=== PATIENT | female | born 1950 | race Hispanic/Latino ===

== ENCOUNTER 2016-10-28 14:33 | Emergency (ER) | payer MEDICARE, MEDICAID ==
[2016-10-28 14:33] VITALS: BMI 30.7
[2016-10-28 15:52] VITALS: BP 179/71; PULSE 91; RESP 18; TEMP 97.9; O2SAT 100
--- NOTE | 2016-10-28 16:13 | C.PDOC ---
History Of Present Illness 66 y/o female is brought to the ED by daughter for evaluation of bleeding from catheter site after a full dialysis treatment today. Patient reports that the bleeding soaked through one bandage, then the nurse placed another bandage which is the one on presently. She denies any history of bleeding problems, hematochezia, or hematuria. No easy bruising or bleeding otherwise. She reports that the catheter was placed on 09/17/16 and she has been receiving dialysis treatments since then. Also notes fistula done in August,, not yet ready for use. Time Seen by Provider: 10/28/16 15:58 Chief Complaint (Nursing): Abnormal Skin Integrity History Per: Patient, Family (daughter) History/Exam Limitations: no limitations Onset/Duration Of Symptoms: Mins, Persistent Current Symptoms Are (Timing): Still Present Recent travel outside of the [place]: No Past Medical History Reviewed: Historical Data, Nursing Documentation, Vital Signs Vital Signs: Last Vital Signs Temp 97.9 F 10/28/16 15:48 Pulse 91 H 10/28/16 15:48 Resp 18 10/28/16 15:48 BP 179/71 H 10/28/16 15:48 Pulse Ox 100 10/28/16 18:16 - Medical History PMH: Anemia, Anxiety, Back Problems, CHF, Diabetes, Gall Bladder Disease, HTN, Hypercholesterolemia, Hypothyroidism, Peripheral Edema, Pneumonia, End Stage Renal Disease, Chronic Kidney Disease, Sleep Apnea, TIA (right sided weakness) Surgical History: Cholecystectomy, Endoscopy, Tonsillectomy - [facility] Procedures ASSISTANCE WITH RESPIRATORY VENTILATION, <24 HRS, CPAP (04/29/16) COLONOSCOPY (02/01/15) EXCISION OF LARGE INTESTINE, ENDO, DIAGN (04/29/16) FLUOROSCOPY OF SUPERIOR VENA CAVA, GUIDANCE (05/07/16) INSERTION OF ENDOTRACHEAL AIRWAY INTO TRACHEA, VIA OPENING (05/07/16) INSERTION OF INFUSION DEV INTO SUP VENA CAVA, PERC APPROACH (09/15/16) INTRAOPER CHOLANGIOGRAM (12/05/14) LAPAROSCOPIC CHOLECYSTECTOMY (12/05/14) LAPAROSCOPIC LIVER BIOPSY (12/05/14) PERFORMANCE OF URINARY FILTRATION, MULTIPLE (09/15/16) REMOVAL OF INFUSION DEVICE FROM UPPER VEIN, SALESPERSON TOY TRAINS AND ACCESSORIES APPROACH (08/14/16) RESPIRATORY VENTILATION, 24-96 CONSECUTIVE HOURS (05/07/16) TRANSFUSE NONAUT RED BLOOD CELLS IN PERIPH VEIN, PERC (04/29/16) Family History: States: Hypertension (mother and father) - Social History Hx Tobacco Use: No Hx Alcohol Use: No Hx Substance Use: No - Immunization History Hx Tetanus Toxoid Vaccination: No Hx Influenza Vaccination: No Hx Pneumococcal Vaccination: No Review Of Systems Except As Marked, All Systems Reviewed And Found Negative. Constitutional: Negative for: Fever, Chills Cardiovascular: Negative for: Chest Pain Respiratory: Negative for: Cough, Shortness of Breath Gastrointestinal: Negative for: Nausea, Vomiting, Abdominal Pain, Diarrhea, Hematochezia Genitourinary: Negative for: Hematuria Neurological: Negative for: Weakness, Numbness Physical Exam - Physical Exam Appears: Non-toxic, No Acute Distress Skin: Normal Color, Warm, Dry Head: Atraumatic, Normacephalic Eye(s): bilateral: Normal Inspection, PERRL Neck: Normal ROM, Supple Chest: Other (tunneled dialysis catheter right chest wall, no active bleeding from site, no redness, warmth, or drainage; bandage clean and dry) Cardiovascular: Rhythm Regular Respiratory: Normal Breath Sounds, No Rales, No Rhonchi, No Wheezing Gastrointestinal/Abdominal: Normal Exam, Soft, No Tenderness Back: Normal Inspection, No CVA Tenderness Extremity: Normal ROM, No Swelling Extremity: Bilateral: Atraumatic Neurological/Psych: Oriented x3, Normal Speech, Normal Cognition ED Course And Treatment O2 Sat by Pulse Oximetry: 100 (ra) Pulse Ox Interpretation: Normal Medical Decision Making Medical Decision Making: The patient initially refused blood testing. After a period of over 3 hours of observation the patient's catheter site had no bleeding. Again she refused any blood test to check for bleeding problems or anemia. I discussed with both Dr Hernandez who placed the line and the dispatcher bus and trolley who is completions manager for Dr Kat Downs. They both agreed that there is no further intervention warranted at this time and that it is reasonable for the patient to be discharged home and follow up for dialysis as usual. The patient should of course return for any recurrent bleeding which I disc w her and her daughter and also her son over the phone. Disposition - Disposition Referrals: Tyrese German MD [Staff Provider] - Disposition: HOME/ ROUTINE Disposition Time: 18:06 Condition: STABLE Additional Instructions: Please follow up with your doctor tomorrow. Return to the ER for any recurrent bleeding or for any other concerns. Forms: General Discharge Instructions - Clinical Impression Clinical Impression: Hemorrhage from dialysis catheter - Scribe Statement The provider has reviewed the documentation as recorded by the Scribe (Saba Toribio) Provider Attestation: All medical record entries made by the Scribe were at my direction and personally dictated by me. I have reviewed the chart and agree that the record accurately reflects my personal performance of the history, physical exam, medical decision making, and the department course for this patient. I have also personally directed, reviewed, and agree with the discharge instructions and disposition.
== END 2016-10-28 18:32 | disposition home or self-care (01) ==
LOC: C.ER 14:33
DX: T82.838A Hemorrhage due to vascular prosthetic devices, implants and grafts, initial encounter (principal); Y83.8 Other surgical procedures as the cause of abnormal reaction of the patient, or of later complication, without mention of misadventure at the time of the procedure

== ENCOUNTER 2016-10-30 11:39 | Emergency (ER) | payer MEDICARE, MEDICAID ==
[2016-10-30 11:39] VITALS: BMI 30.7
--- NOTE | 2016-10-30 12:30 | C.PDOC ---
History Of Present Illness 66 y/o female presents to the ED complaining of bleeding at the site of her hemodialysis catheter. Patient was evaluated here in the ED 2 days prior for same. She denies any history of bleeding problems, hematochezia, or hematuria. She reports that the catheter was placed on 09/17/16 and she has been receiving dialysis treatments since then. Also notes fistula done in August,, not yet ready for use. Patient denies fever, chills, chest pain, cough, shortness of breath, nausea, vomiting, abdominal pain, diarrhea, weakness, numbness, or other complaints. Time Seen by Provider: 10/30/16 12:01 Chief Complaint (Nursing): Abnormal Skin Integrity History Per: Patient History/Exam Limitations: no limitations Onset/Duration Of Symptoms: Mins, Gradual, Persistent Current Symptoms Are (Timing): Still Present Recent travel outside of the [place]: No Past Medical History Reviewed: Historical Data, Nursing Documentation, Vital Signs Vital Signs: Last Vital Signs Temp 98 F 10/30/16 11:43 Pulse 89 10/30/16 11:43 Resp 18 10/30/16 11:43 BP 183/86 H 10/30/16 11:43 Pulse Ox 95 10/30/16 12:55 - Medical History PMH: Anemia, Anxiety, Back Problems, CHF, Diabetes, Gall Bladder Disease, HTN, Hypercholesterolemia, Hypothyroidism, Peripheral Edema, Pneumonia, End Stage Renal Disease, Chronic Kidney Disease, Sleep Apnea, TIA (right sided weakness) Surgical History: Cholecystectomy, Endoscopy, Tonsillectomy - [facility] Procedures ASSISTANCE WITH RESPIRATORY VENTILATION, <24 HRS, CPAP (04/29/16) COLONOSCOPY (02/01/15) EXCISION OF LARGE INTESTINE, ENDO, DIAGN (04/29/16) FLUOROSCOPY OF SUPERIOR VENA CAVA, GUIDANCE (05/07/16) INSERTION OF ENDOTRACHEAL AIRWAY INTO TRACHEA, VIA OPENING (05/07/16) INSERTION OF INFUSION DEV INTO SUP VENA CAVA, PERC APPROACH (09/15/16) INTRAOPER CHOLANGIOGRAM (12/05/14) LAPAROSCOPIC CHOLECYSTECTOMY (12/05/14) LAPAROSCOPIC LIVER BIOPSY (12/05/14) PERFORMANCE OF URINARY FILTRATION, MULTIPLE (09/15/16) REMOVAL OF INFUSION DEVICE FROM UPPER VEIN, LINE ERECTOR APPROACH (08/14/16) RESPIRATORY VENTILATION, 24-96 CONSECUTIVE HOURS (05/07/16) TRANSFUSE NONAUT RED BLOOD CELLS IN PERIPH VEIN, PERC (04/29/16) Family History: States: Hypertension (mother and father) - Social History Hx Tobacco Use: No Hx Alcohol Use: No Hx Substance Use: No - Immunization History Hx Tetanus Toxoid Vaccination: No Hx Influenza Vaccination: No Hx Pneumococcal Vaccination: No Review Of Systems Except As Marked, All Systems Reviewed And Found Negative. Constitutional: Negative for: Fever, Chills Cardiovascular: Negative for: Chest Pain Respiratory: Negative for: Cough, Shortness of Breath Gastrointestinal: Negative for: Nausea, Vomiting, Abdominal Pain, Diarrhea, Hematochezia Genitourinary: Negative for: Hematuria Skin: Positive for: Other (bleeding at site of catheter) Neurological: Negative for: Weakness, Numbness Physical Exam - Physical Exam Appears: Non-toxic, No Acute Distress Skin: Normal Color, Warm, Dry Head: Atraumatic, Normacephalic Neck: Normal ROM, Supple Chest: Symmetrical, Other (tunneled dialysis catheter right chest wall, minimal moist blood observed) Cardiovascular: Rhythm Regular Respiratory: Normal Breath Sounds, No Rales, No Rhonchi, No Wheezing Extremity: Normal ROM Neurological/Psych: Oriented x3, Normal Speech, Normal Cognition ED Course And Treatment O2 Sat by Pulse Oximetry: 95 (ra) Pulse Ox Interpretation: Normal Reevaluation Time: 13:22 Reassessment Condition: Improved (seen and evaled by Dr. Ibarra- pending replacement of the R upper chest HD catheter-plan to return 0700 tomorrow (). Pre-op labs done in ED) Medical Decision Making Medical Decision Making: Dr. Ibarra paged at 12:15, states he will evaluate patient in the ED. Plan: * Labs malfunctioning HD cath, pending replacement tomorrow Disposition Doctor Will See Patient In The: Office Counseled Patient/Family Regarding: Studies Performed, Diagnosis - Disposition Disposition: HOME/ ROUTINE Disposition Time: 13:24 Condition: GOOD - Clinical Impression Clinical Impression: Hemodialysis catheter dysfunction - Scribe Statement The provider has reviewed the documentation as recorded by the Scribe (Saba Toribio) Provider Attestation: All medical record entries made by the Scribe were at my direction and personally dictated by me. I have reviewed the chart and agree that the record accurately reflects my personal performance of the history, physical exam, medical decision making, and the department course for this patient. I have also personally directed, reviewed, and agree with the discharge instructions and disposition.
[2016-10-30 13:30] VITALS: BP 170/79; PULSE 72; RESP 16; TEMP 98.1; O2SAT 96
[2016-10-30 13:45] LABS: BASO # 0.1 K/uL (0.0-0.2); EOS # 0.3 K/uL (0.0-0.7); EOS % 4.1 % (0.0-4.0); HEMATOCRIT 25.4 % (34.0-47.0); LYMPH # 1.7 K/uL (1.0-4.3); LYMPH % 22.3 % (20.0-40.0); MEAN CORPUSCULAR HEMOGLOBIN 29.2 pg (27.0-31.0); MEAN PLATELET VOLUME 7.3 fL (7.2-11.7); MONO # 0.5 K/uL (0.0-0.8); MONO % 6.3 % (0.0-10.0); RED CELL DISTRIBUTION WIDTH 16.6 % (11.5-14.5); WHITE BLOOD COUNT 7.8 K/uL (4.8-10.8)
[2016-10-30 13:47] LABS: MEAN CELL VOLUME 88.6 fL (81.0-99.0)
[2016-10-30 13:54] LABS: POTASSIUM 3.9 mmol/L (3.6-5.2)
[2016-10-30 13:56] LABS: BILIRUBIN,TOTAL 0.5 mg/dL (0.2-1.3)
[2016-10-30 13:57] LABS: CALCIUM 8.1 mg/dl (8.6-10.4); TOTAL PROTEIN 6.9 g/dL (6.3-8.3)
--- NOTE | 2016-10-30 14:46 | RAD ---
HISTORY: Repeat COMPARISON: Chest x-ray performed 09/15/16 TECHNIQUE: Chest, one view. FINDINGS: Examination limited by habitus. Right-sided central venous catheter terminates at the expected location of the SVC. LUNGS: Mild increased interstitial markings may reflect infection or edema. Please note that chest x-ray has limited sensitivity for the detection of pulmonary masses. PLEURA: No significant pleural effusion identified. No definite pneumothorax . CARDIOVASCULAR: Cardiomegaly. Ectatic aorta. Atherosclerotic calcifications of the aorta. OSSEOUS STRUCTURES: Degenerative changes of the spine. VISUALIZED UPPER ABDOMEN: Unremarkable. OTHER FINDINGS: None. IMPRESSION: Mild increased interstitial markings may reflect infection or edema. Cardiomegaly. Right-sided central venous catheter.
== END 2016-10-30 13:30 | disposition home or self-care (01) ==
LOC: C.ER 11:39
DX: T82.838A Hemorrhage due to vascular prosthetic devices, implants and grafts, initial encounter (principal); Y83.8 Other surgical procedures as the cause of abnormal reaction of the patient, or of later complication, without mention of misadventure at the time of the procedure

== ENCOUNTER 2016-10-31 07:39 | Day surgery (SDC) | payer MEDICARE ==
[2016-10-30 11:39] VITALS: BMI 30.7
[2016-10-31] MEDS ORDERED: Lidocaine 1% Inj (20ml) ONE (07:51)
[2016-10-31] MEDS ORDERED: HEPARIN-NS 5,000 UNITS/500 ML 500 ML IV ONE (07:51)
[2016-10-31] MEDS ORDERED: Sodium Chloride 0.9% 500 ML IV ONE (10:15)
[2016-10-31] MEDS ORDERED: ceFAZolin IV 1 gm in Dextrose 50 ML IVPB ONE (10:17)
[2016-10-31] MEDS ORDERED: Propofol 10 mg/ml Inj (20 ML) ONE (10:18)
[2016-10-31] MEDS ORDERED: Midazolam 2 MG/2 ML VIAL ONE (10:18)
--- NOTE | 2016-10-31 11:18 | PCM.SURG1 ---
Surgeon's Initial Post Op Note - Surgeon's Notes Surgeon: Stacey Intelligence Intern: [id number] Type of Anesthesia: General IV Pre-Operative Diagnosis: Leaking permacath Operative Findings: see op report Post-Operative Diagnosis: Leaking permacath Operation Performed: Permacath exchange Specimen/Specimens Removed: old permacath Estimated Blood Loss: EBL {In ML}: 10 Blood Products Given: N/A Drains Used: No Drains Post-Op Condition: Good Date of Surgery/Procedure: 10/31/16 Time of Surgery/Procedure: 10:15
[2016-10-31] MEDS ORDERED: HYDROmorphone 0.5 mg/0.5 ml ISec IVP PRN (11:29)
[2016-10-31] MEDS ORDERED: Sodium Chloride 0.9% 1,000 ML IV SCH (11:30)
--- NOTE | 2016-10-31 12:04 | OP ---
PROCEDURE DATE: 10/31/2016 PREOPERATIVE DIAGNOSIS: Nonfunctioning PermCath. POSTOPERATIVE DIAGNOSIS: Nonfunctioning PermCath. PROCEDURE CARRIED OUT: Replacement of PermCath. SURGEON: Levy Ibarra Jr., MD [employer] WORKER: Dr. Jackson, resident. ANESTHESIOLOGIST: Mr. Rucker. ANESTHESIA: Local with sedation. INDICATIONS: Middle-aged woman has a maturing fistula in her left arm which should able to be utiliz ed in the near future. Yesterday, she presented for dialysis and the catheter did not work. There w as brisk flow of blood when it was hooked up to the machine. OPERATIVE FINDINGS: There was no evidence of leak or disruption of the catheter. This was carefully examined after the catheter was removed. PROCEDURE: The patient was given local anesthesia as well as intravenous sedation and antibiotics. An incision was made in the neck, catheter was grasped, the old catheter was removed. A new wire mary ana. A sheath dilator passed over this, and the catheter positioned in superior vena cava, right atr ium. It was flushed with heparinized saline with good return and the catheter was secured to the ski n after it was tunneled under the skin. Blood loss for the procedure was 10 mL. OPERATION CARRIED OUT: Replacement of PermCath right jugular vein, fluoroscopy. Levy Ibarra Jr., MD cc: 56 TT: 10/31/2016 12:04:14 an
[2016-10-31 13:06] VITALS: PULSE 71
--- NOTE | 2016-10-31 13:26 | RAD ---
HISTORY: permacath placement COMPARISON: Comparison chest 10/30/2016. FINDINGS: LUNGS: There appears be mild pulmonary vascular congestion which could be due to fluid overload versus pulmonary edema related to CHF. Clinical correlation recommended. Mild bibasilar atelectasis left greater than right. Large-bore dual-lumen PermCath with tip in the SVC/RA junction PLEURA: No significant pleural effusion identified, no pneumothorax apparent. CARDIOVASCULAR: . Cardiomegaly. OSSEOUS STRUCTURES: No significant abnormalities. VISUALIZED UPPER ABDOMEN: Normal. OTHER FINDINGS: None. IMPRESSION: There appears be mild pulmonary vascular congestion which could be due to fluid overload versus pulmonary edema related to CHF. Clinical correlation recommended. Mild bibasilar atelectasis left greater than right. Large-bore dual-lumen PermCath with tip in the SVC/RA junction Cardiomegaly.
[2016-10-31 13:49] VITALS: BP 154/59; RESP 18; TEMP 97; O2SAT 97
--- NOTE | 2016-10-31 14:28 | RAD ---
PROCEDURE: Fluoroscopy dated 10/31/2016. HISTORY: PERMACATH LEAK COMPARISON: Comparison made with prior chest radiograph 10/30/2016. TECHNIQUE: 3 fluoroscopic views of the upper chest. . FINDINGS: Study demonstrates in situ right IJ PermCath with tip in the SVC/RA junction 8.2 seconds of fluoroscopy time utilized. Radiation dose = 1.03 mGy IMPRESSION: Fluoroscopic guided right IJ PermCath insertion.
== END 2016-10-31 13:51 | disposition home or self-care (01) ==
LOC: C.SDS 07:39
PROVIDERS: ATTEND Surgery Vascular Surgery
DX: T82.9XXA Unspecified complication of cardiac and vascular prosthetic device, implant and graft, initial encounter (principal)
CPT/HCPCS: 36578; 71010; 77001; 82948; J0690; J2250; J2704; J3010; J7040

== ENCOUNTER 2016-11-25 01:55 | Observation (INO) | payer MEDICARE, MEDICAID ==
[2016-11-25 01:56] VITALS: BMI 30.7
--- NOTE | 2016-11-25 02:20 | C.PDOC ---
History Of Present Illness Patient presents to the ED with complaints of SOB. Patient notes being new dialysis patient, receiving dialysis Friday, Friday, and Friday. Patient denies fever, chills, nausea, and vomiting. Time Seen by Provider: 11/25/16 02:18 Chief Complaint (Nursing): Shortness Of Breath History Per: Patient History/Exam Limitations: no limitations Onset/Duration Of Symptoms: Hrs Current Symptoms Are (Timing): Still Present Severity: Moderate Pain Scale Rating Of: 5 Associated Symptoms: denies: Fever, Chills Past Medical History Reviewed: Historical Data, Nursing Documentation, Vital Signs Vital Signs: Last Vital Signs Temp 97.2 F L 11/25/16 02:07 Pulse 88 11/25/16 06:09 Resp 21 11/25/16 06:09 BP 177/81 H 11/25/16 06:09 Pulse Ox 99 11/25/16 06:09 - Medical History PMH: Anemia, Anxiety, Back Problems, CHF, Diabetes, Gall Bladder Disease, HTN, Hypercholesterolemia, Hypothyroidism, Peripheral Edema, Pneumonia, End Stage Renal Disease, Chronic Kidney Disease, Sleep Apnea, TIA (right sided weakness) Surgical History: Cholecystectomy, Endoscopy, Tonsillectomy - [facility] Procedures ASSISTANCE WITH RESPIRATORY VENTILATION, <24 HRS, CPAP (04/29/16) COLONOSCOPY (02/01/15) EXCISION OF LARGE INTESTINE, ENDO, DIAGN (04/29/16) FLUOROSCOPY OF SUPERIOR VENA CAVA, GUIDANCE (05/07/16) INSERTION OF ENDOTRACHEAL AIRWAY INTO TRACHEA, VIA OPENING (05/07/16) INSERTION OF INFUSION DEV INTO SUP VENA CAVA, PERC APPROACH (09/15/16) INTRAOPER CHOLANGIOGRAM (12/05/14) LAPAROSCOPIC CHOLECYSTECTOMY (12/05/14) LAPAROSCOPIC LIVER BIOPSY (12/05/14) PERFORMANCE OF URINARY FILTRATION, MULTIPLE (09/15/16) REMOVAL OF INFUSION DEVICE FROM UPPER VEIN, LIFEGUARD APPROACH (08/14/16) RESPIRATORY VENTILATION, 24-96 CONSECUTIVE HOURS (05/07/16) TRANSFUSE NONAUT RED BLOOD CELLS IN PERIPH VEIN, PERC (04/29/16) Family History: States: No Known Family Hx, Hypertension (mother and father) - Social History Hx Tobacco Use: No Hx Alcohol Use: No Hx Substance Use: No - Immunization History Hx Tetanus Toxoid Vaccination: No Hx Influenza Vaccination: No Hx Pneumococcal Vaccination: No Review Of Systems Constitutional: Negative for: Fever, Chills, Sweats Cardiovascular: Negative for: Chest Pain, Palpitations Respiratory: Positive for: Shortness of Breath Gastrointestinal: Negative for: Nausea, Vomiting, Abdominal Pain, Diarrhea Neurological: Negative for: Weakness, Numbness Physical Exam - Physical Exam Appears: Non-toxic, No Acute Distress Skin: Diaphoretic Neck: Normal ROM, Supple Chest: Other (dialysis port in right chest ) Cardiovascular: Rhythm Regular Respiratory: Rales (rales at bases ) Gastrointestinal/Abdominal: Soft, No Tenderness, No Distention, No Guarding, No Rebound Extremity: Other (left dialysis graft with good bruit and thrill ) Neurological/Psych: Oriented x3 ED Course And Treatment - Laboratory Results Result Diagrams: 11/25/16 02:49 11/25/16 02:49 ECG: Interpreted By Me, Viewed By Me ECG Rhythm: Sinus Rhythm (97), L BBB, Nonspecific Changes (unchanged from ) O2 Sat by Pulse Oximetry: 95 Pulse Ox Interpretation: Normal - Radiology CXR: Interpreted by Me, Viewed By Me CXR Interpretation: Yes: Cardiomegaly, Other (hd shunt r chest, chf, slighly worse than 10/31/16). No: Fracture, Pnemothorax Progress Note: cardiac work up,. spoke with dr minnie cabrera in am Disposition Discussed With : Nagi Mann Comment: accepted the pt on his service and took over the care at 3:44 AM Doctor Will See Patient In The: ED Counseled Patient/Family Regarding: Studies Performed, Diagnosis - Disposition Disposition: HOSPITALIZED Disposition Time: 02:20 Condition: GUARDED - POA Present On Arrival: Poor Glycemic Control - Clinical Impression Clinical Impression: Dyspnea, Respiratory distress, CHF exacerbation, ESRD on hemodialysis - Scribe Statement The provider has reviewed the documentation as recorded by the Scribe Elli Estevez All medical record entries made by the Scribe were at my direction and personally dictated by me. I have reviewed the chart and agree that the record accurately reflects my personal performance of the history, physical exam, medical decision making, and the department course for this patient. I have also personally directed, reviewed, and agree with the discharge instructions and disposition. Decision To Admit - Pt Status Changed To: Hospital Disposition Of: Observation - . Bed Request Type: Telemetry Admitting Physician: Nagi Mann Patient Diagnosis: Dyspnea, Respiratory distress, CHF exacerbation, ESRD on hemodialysis
[2016-11-25 02:55] LABS: ABG ALLEN TEST POS; DRAW SITE RR
[2016-11-25 02:59] LABS: INR 0.9
[2016-11-25 03:01] LABS: BASO # 0.2 K/uL (0.0-0.2); BASO % 1.9 % (0.0-2.0); EOS # 0.4 K/uL (0.0-0.7); EOS % 3.7 % (0.0-4.0); HEMATOCRIT 33.8 % (34.0-47.0); LYMPH # 1.7 K/uL (1.0-4.3); LYMPH % 15.5 % (20.0-40.0); MEAN CELL VOLUME 89.6 fL (81.0-99.0); MEAN CORPUSCULAR HEMOGLOBIN 28.3 pg (27.0-31.0); MEAN CORPUSCULAR HGB CONC 31.6 g/dL (33.0-37.0); MEAN PLATELET VOLUME 8.1 fL (7.2-11.7); MONO # 0.6 K/uL (0.0-0.8); MONO % 5.1 % (0.0-10.0); RED CELL DISTRIBUTION WIDTH 17.3 % (11.5-14.5); WHITE BLOOD COUNT 10.9 K/uL (4.8-10.8)
[2016-11-25 03:02] LABS: CHLORIDE 99 mmol/L (98-107); POTASSIUM 4.6 mmol/L (3.6-5.2); SODIUM 138 mmol/L (132-148)
[2016-11-25 03:04] LABS: BILIRUBIN,TOTAL 0.8 mg/dL (0.2-1.3); GFR AFRICAN-AMERICAN 8
[2016-11-25 03:05] LABS: ALB/GLOB RATIO 1.3 (1.0-2.1); ALKALINE PHOSPHATASE 67 U/L (38-126); ALT/SGPT 18 U/L (9-52); AST/SGOT 44 U/L (14-36); BLOOD UREA NITROGEN 84 mg/dL (7-17); CALCIUM 8.3 mg/dl (8.6-10.4); CARBON DIOXIDE 18 mmol/L (22-30); GLUCOSE,RANDOM 286 mg/dL (65-105); TOTAL PROTEIN 7.9 g/dL (6.3-8.3)
[2016-11-25] MEDS ORDERED: Nitroglycerin 2% Ointment Foilpak UD TOP STA (03:44)
[2016-11-25] MEDS ORDERED: Nitroglycerin 2% Ointment Foilpak UD TOP ONE (03:54)
--- NOTE | 2016-11-25 05:10 | CP.PCM.HP ---
<Isabel Mari MACIAS - Last Filed: 11/25/16 06:39> History of Present Illness - History of Present Illness History of Present Illness: Patient is a 66 year old female with PMHx of ESRD on HD MWF, CHF, anemia, HTN and DM presents to ED with SOB that started at 10pm on 11/24/16. Patient states she told her daughter that she felt like she could not breathe and her daughter called for medical transport to take them to the ER. Patient states she has had this sensation multiple times and she associates it with having excess fluid in her body. Patient always uses 3 pillows to sleep at night. Patient denies associated diaphoresis but admits to feeling off balance- denies falls. Patient denies cough, has complaint of dry mouth and swollen abdomen. Patient still makes urine. Patient states that she is not taking any medications for HTN or DM because she was told she can't be on her pills anymore and the patient does not want to give herself insulin. Patient states that she has had bad side effects from multiple HTN medications, antibiotics, and supplements. Patient states she gets abdominal swelling and rashes from glycerin, vitamin D gel capsules (contained glycerine), levofloxacin, calcium acetate, propylene glycol, kayexalate. She denies chest pain, nausea/vomiting/diarrhea, dysuria. PMD: none currently Outpt nephro: Maxi PMHx - DM II, HTN, HLD, CKD on HD MWF for the past 2 months Surg - Cholecystectomy , Tonsillectomy, AVF Allergies - phoslo, glycerin, levofloxacin, propylene glycol. kayexalate, seafood Fam HX - Father - HTN, Mother - HTN Social - denies drug, tobacco, alcohol use; lives with daughter Present on Admission - Present on Admission Any Indicators Present on Admission: Yes History of Uncontrolled Diabetes: Yes Review of Systems - Constitutional Constitutional: absent: Chills, Fever, Weakness - EENT Eyes: absent: Blurred Vision Ears: Dizziness (feels off balance) Nose/Mouth/Throat: Sore Throat - Cardiovascular Cardiovascular: Dyspnea, Leg Edema, Orthopnea (sleeps on 3 pillows). absent: Chest Pain, Chest Pain with Activity, Palpitations - Respiratory Respiratory: Dyspnea. absent: Cough - Gastrointestinal Gastrointestinal: Abdominal Pain. absent: Nausea, Vomiting - Genitourinary Genitourinary: Difficulty Urinating (makes small amount urine difficult to get out) - Musculoskeletal Musculoskeletal: absent: Back Pain - Integumentary Integumentary: absent: Rash - Neurological Neurological: Dizziness. absent: Focal Weakness, Weakness - Endocrine Endocrine: absent: Palpitations Past Patient History - Infectious Disease Hx of Infectious Diseases: None - Past Medical History & Family History Past Medical History?: Yes - Past Social History Smoking Status: Never Smoked - CARDIAC Hx Congestive Heart Failure: Yes Hx Hypercholesterolemia: Yes Hx Hypertension: Yes Hx Peripheral Edema: Yes - PULMONARY Hx Pneumonia: Yes Hx Sleep Apnea: Yes - NEUROLOGICAL Hx Transient Ischemic Attacks (TIA): Yes (right sided weakness) - HEENT Hx HEENT Problems: Yes Other/Comment: Wears eyeglasses for reading/watching TV - RENAL Hx Chronic Kidney Disease: Yes - ENDOCRINE/METABOLIC Hx Hypothyroidism: Yes - HEMATOLOGICAL/ONCOLOGICAL Hx Anemia: Yes - INTEGUMENTARY Hx Dermatological Problems: No - MUSCULOSKELETAL/RHEUMATOLOGICAL Hx Musculoskeletal Disorders: Yes Hx Back Pain: Yes Hx Falls: Yes Hx Osteomyelitis: Yes Other/Comment: Lt 2nd toe osteomylitis HX - GASTROINTESTINAL Hx Gall Bladder Disease: Yes - GENITOURINARY/GYNECOLOGICAL Hx Genitourinary Disorders: No - PSYCHIATRIC Hx Anxiety: Yes Hx Substance Use: No - SURGICAL HISTORY Hx Cholecystectomy: Yes Hx Tonsillectomy: Yes - ANESTHESIA Hx Anesthesia: Yes Hx Anesthesia Reactions: No Hx Malignant Hyperthermia: No Meds Allergies/Adverse Reactions: Allergies Allergy/AdvReac Type Severity Reaction Status Date / Time calcium acetate [From PhosLo] Allergy Severe hives Verified 10/30/16 11:41 glycerin Allergy Severe RASH Verified 10/30/16 11:41 Influenza Virus Vaccines Allergy Severe ANAPHYLAXIS Verified 10/30/16 11:41 levofloxacin Allergy Severe numbness Verified 10/30/16 11:41 propylene glycol Allergy Severe SWELLING Verified 10/30/16 11:41 sodium polystyrene sulfonate Allergy Severe SWELLING Verified 10/30/16 11:41 [From Kayexalate] ergocalciferol (vitamin D2) Allergy SWELLING Verified 10/30/16 11:41 [From Vitamin D2] seafood Allergy Severe throat Uncoded 10/30/16 11:41 swelling Physical Exam - Constitutional Appears: Non-toxic, No Acute Distress - Head Exam Head Exam: ATRAUMATIC, NORMOCEPHALIC - Eye Exam Eye Exam: EOMI, Normal appearance, PERRL - ENT Exam ENT Exam: Mucous Membranes Moist - Neck Exam Neck exam: Negative for: Lymphadenopathy - Respiratory Exam Respiratory Exam: Rales - Cardiovascular Exam Cardiovascular Exam: +S1, +S2 Additional comments: right side chest with HD port - GI/Abdominal Exam GI & Abdominal Exam: Distended, Normal Bowel Sounds, Soft. absent: Firm, Guarding, Tenderness - Extremities Exam Extremities exam: Positive for: pedal edema. Negative for: calf tenderness Additional comments: left upper extremity with AV fistula with palpable thrill - Neurological Exam Neurological exam: Alert, Oriented x3 - Psychiatric Exam Psychiatric exam: Normal Affect, Normal Mood - Skin Skin Exam: Dry, Warm Results - Vital Signs Recent Vital Signs: Last Vital Signs Temp 97.2 F L 11/25/16 02:07 Pulse 106 H 11/25/16 02:07 Resp 26 H 11/25/16 02:11 BP 238/102 H 11/25/16 02:07 Pulse Ox 95 11/25/16 03:46 - Labs Result Diagrams: 11/25/16 02:49 11/25/16 02:49 Assessment & Plan (1) Dyspnea Assessment and Plan: maintain on O2 by nasal canula, will use BiPAP if necessary patient received lasix IV in ER, patient to have HD this AM Status: Acute (2) ESRD on hemodialysis Assessment and Plan: patient has HD on MWF Dr. German consulted- dialysis to be done this AM Status: Acute (3) HTN (hypertension) Assessment and Plan: patient not on medications, gave one dose hydralazine, will need to clarify patient's medications Status: Chronic (4) Anemia Assessment and Plan: likely due to ESRD will continue to monitor Status: Chronic (5) Diabetes mellitus Assessment and Plan: ISS with accuchecks ACHS Status: Chronic (6) Prophylactic measure Assessment and Plan: heparin 5000 units q12h protonix 40mg daily Status: Acute <Nagi Mann - Last Filed: 12/02/16 19:07> Results - Vital Signs Recent Vital Signs: Last Vital Signs Temp 97.5 F L 11/25/16 13:37 Pulse 78 11/25/16 14:00 Resp 20 11/25/16 13:37 BP 176/71 H 11/25/16 13:37 Pulse Ox 99 11/25/16 13:37 - Labs Result Diagrams: 11/25/16 02:49 11/25/16 02:49 Assessment & Plan - Date & Time Date: 12/02/16 (I have seen and examined the patient. I agree with the findings and plan of care as documented by Dr. Hill. Patient with SOB and ESRD on hemodialysis. Received Lasix and oxygen in ED. Change to Bipap if necessary. Consult Dr. German for dialysis. Also with anemia. Possibly secondary to ESRD. Will continue to monitor. Continue home meds for history of hypertension. Monitor for acute changes.) Time: 19:03 Attending/Attestation - Attestation I have personally seen and examined this patient.: Yes I have fully participated in the care of the patient.: Yes I have reviewed all pertinent clinical information: Yes
[2016-11-25 06:10] LABS: T4 6.23 ug/dL (5.5-11.0)
[2016-11-25 06:24] LABS: THYROID STIMULATING HORMONE 2.02 mIU/L (0.46-4.68)
[2016-11-25] MEDS ORDERED: (Novolin R) Insulin Human Regular 100 units/ml vial SC SCH (07:30)
[2016-11-25] MEDS ORDERED: (Novolin R) Insulin Human Regular 100 units/ml vial ONE (07:41)
--- NOTE | 2016-11-25 08:27 | RAD ---
PROCEDURE: CHEST RADIOGRAPH, 1 VIEW HISTORY: Shortness of breath COMPARISON: 10/31/2016 FINDINGS: LUNGS: Diffuse increased interstitial lung markings suggestive for edema and or infiltrate. Patchy consolidative changes in the bilateral hilar regions and lung bases. Right central venous catheter extending into the right atrium. Upper lobe granulomatous changes. PLEURA: As above. CARDIOVASCULAR: Normal. OSSEOUS STRUCTURES: No significant abnormalities. VISUALIZED UPPER ABDOMEN: Normal. OTHER FINDINGS: None. IMPRESSION: Diffuse increased interstitial lung markings suggestive for edema and or infiltrate. Patchy consolidative changes in the bilateral hilar regions and lung bases. Right central venous catheter extending into the right atrium. Upper lobe granulomatous changes.
[2016-11-25] MEDS ORDERED: Pantoprazole 40 mg EC Tab PO SCH (10:00)
[2016-11-25 10:28] VITALS: TEMP 97.5
[2016-11-25 10:30] VITALS: O2SAT 99
--- NOTE | 2016-11-25 12:30 | CP.PCM.CON ---
History of Present Illness - History of Present Illness History of Present Illness: Patient is a 66 year old female with PMHx of ESRD on HD MWF, CHF, anemia, HTN and DM presents to ED with SOB that started at 10pm on 11/24/16. Patient states she told her daughter that she felt like she could not breathe and her daughter called for medical transport to take them to the ER. Patient states she has had this sensation multiple times and she associates it with having excess fluid in her body. Patient always uses 3 pillows to sleep at night. Patient denies associated diaphoresis but admits to feeling off balance- denies falls. Patient denies cough, has complaint of dry mouth and swollen abdomen. Patient still makes urine. Patient states that she is not taking any medications for HTN or DM because she was told she can't be on her pills anymore and the patient does not want to give herself insulin. Patient states that she has had bad side effects from multiple HTN medications, antibiotics, and supplements. Patient states she gets abdominal swelling and rashes from glycerin, vitamin D gel capsules (contained glycerine), levofloxacin, calcium acetate, propylene glycol, kayexalate. She denies chest pain, nausea/vomiting/diarrhea, dysuria. PMH: ESRD DM 2 DIABETIC NEPHROPATHY HTN CHF EPISODES PSH: CHOLEYCYSTECTOMY AV FISTULA PRESENTS WITH CHF- NEEDED IMMEDIATE DIALYSIS TO UF 3000ML POSSIBLE DISCHARGE IF STABLE POST DIALYSIS Past Patient History - Infectious Disease Hx of Infectious Diseases: None - Past Medical History & Family History Past Medical History?: Yes - Past Social History Smoking Status: Never Smoked - CARDIAC Hx Congestive Heart Failure: Yes Hx Hypercholesterolemia: Yes Hx Hypertension: Yes Hx Peripheral Edema: Yes - PULMONARY Hx Pneumonia: Yes Hx Sleep Apnea: Yes - NEUROLOGICAL Hx Transient Ischemic Attacks (TIA): Yes (right sided weakness) - HEENT Hx HEENT Problems: Yes Other/Comment: Wears eyeglasses for reading/watching TV - RENAL Hx Chronic Kidney Disease: Yes - ENDOCRINE/METABOLIC Hx Hypothyroidism: Yes - HEMATOLOGICAL/ONCOLOGICAL Hx Anemia: Yes - INTEGUMENTARY Hx Dermatological Problems: No - MUSCULOSKELETAL/RHEUMATOLOGICAL Hx Musculoskeletal Disorders: Yes Hx Back Pain: Yes Hx Falls: Yes Hx Osteomyelitis: Yes Other/Comment: Lt 2nd toe osteomylitis HX - GASTROINTESTINAL Hx Gall Bladder Disease: Yes - GENITOURINARY/GYNECOLOGICAL Hx Genitourinary Disorders: No - PSYCHIATRIC Hx Anxiety: Yes Hx Substance Use: No - SURGICAL HISTORY Hx Cholecystectomy: Yes Hx Tonsillectomy: Yes - ANESTHESIA Hx Anesthesia: Yes Hx Anesthesia Reactions: No Hx Malignant Hyperthermia: No Meds Allergies/Adverse Reactions: Allergies Allergy/AdvReac Type Severity Reaction Status Date / Time calcium acetate [From PhosLo] Allergy Severe hives Verified 10/30/16 11:41 glycerin Allergy Severe RASH Verified 10/30/16 11:41 Influenza Virus Vaccines Allergy Severe ANAPHYLAXIS Verified 10/30/16 11:41 levofloxacin Allergy Severe numbness Verified 10/30/16 11:41 propylene glycol Allergy Severe SWELLING Verified 10/30/16 11:41 sodium polystyrene sulfonate Allergy Severe SWELLING Verified 10/30/16 11:41 [From Kayexalate] ergocalciferol (vitamin D2) Allergy SWELLING Verified 10/30/16 11:41 [From Vitamin D2] seafood Allergy Severe throat Uncoded 10/30/16 11:41 swelling - Medications Medications: Current Medications Heparin Sodium (Porcine) (Heparin) 5,000 units SC Q12 [facility] Insulin Human Regular (Novolin R) 0 unit SC ACHS [facility] PRN Reason: Protocol Pantoprazole Sodium (Protonix Ec Tab) 40 mg PO DAILY SOILA Results - Vital Signs Recent Vital Signs: Last Vital Signs Temp 97.5 F L 11/25/16 10:00 Pulse 84 11/25/16 10:33 Resp 18 11/25/16 10:33 BP 158/74 H 11/25/16 11:00 Pulse Ox 99 11/25/16 10:00 - Labs Result Diagrams: 11/25/16 02:49 11/25/16 02:49 Labs: Laboratory Results - last 24 hr 11/25/16 11/25/16 11/25/16 05:32 07:22 11:47 POC Glucose (mg/dL) 281 H 176 H Triglycerides 93 D Cholesterol 221 H LDL Cholesterol Direct 128 HDL Cholesterol 54 Thyroxine (T4) 6.23 TSH 3rd Generation 2.02
[2016-11-25 13:38] VITALS: RESP 20
--- NOTE | 2016-11-25 14:08 | CP.PCM.DIS ---
<Judy Duarte - Last Filed: 11/25/16 14:21> Provider - Provider Date of Admission: 11/25/16 03:47 Attending physician: Nagi Mann MD Primary care physician: None Consults: Nephro- Maxi Time Spent in preparation of Discharge (in minutes): 60 Hospital Course - Lab Results Lab Results: Most Recent Lab Values WBC 10.9 K/uL (4.8-10.8) H 11/25/16 02:49 RBC 3.77 Mil/uL (3.80-5.20) L 11/25/16 02:49 Hgb 10.7 g/dL (11.0-16.0) L D 11/25/16 02:49 Hct 33.8 % (34.0-47.0) L 11/25/16 02:49 MCV 89.6 fL (81.0-99.0) 11/25/16 02:49 MCH 28.3 pg (27.0-31.0) 11/25/16 02:49 MCHC 31.6 g/dL (33.0-37.0) L 11/25/16 02:49 RDW 17.3 % (11.5-14.5) H 11/25/16 02:49 Plt Count 314 K/uL (130-400) 11/25/16 02:49 MPV 8.1 fL (7.2-11.7) 11/25/16 02:49 Neut % (Auto) 73.8 % (50.0-75.0) 11/25/16 02:49 Lymph % (Auto) 15.5 % (20.0-40.0) L 11/25/16 02:49 [place] % (Auto) 5.1 % (0.0-10.0) 11/25/16 02:49 Eos % (Auto) 3.7 % (0.0-4.0) 11/25/16 02:49 Baso % (Auto) 1.9 % (0.0-2.0) 11/25/16 02:49 Neut # 8.1 K/uL (1.8-7.0) H 11/25/16 02:49 Lymph # 1.7 K/uL (1.0-4.3) 11/25/16 02:49 [place] # 0.6 K/uL (0.0-0.8) 11/25/16 02:49 Eos # 0.4 K/uL (0.0-0.7) 11/25/16 02:49 Baso # 0.2 K/uL (0.0-0.2) 11/25/16 02:49 PT 10.0 SECONDS (9.7-12.2) 11/25/16 02:50 INR 0.9 11/25/16 02:50 APTT 31 SECONDS (21-34) 11/25/16 02:50 Puncture Site Rr 11/25/16 02:52 pCO2 42 mm/Hg (35-45) 11/25/16 02:52 pO2 57 mm/Hg (80-100) L 11/25/16 02:52 HCO3 19.8 mmol/L (21-28) L 11/25/16 02:52 ABG pH 7.29 (7.35-7.45) L 11/25/16 02:52 ABG Total CO2 21.5 mmol/L (22-28) L 11/25/16 02:52 ABG O2 Saturation 90.3 % (95-98) L 11/25/16 02:52 ABG Base Excess -6.1 mmol/L (-2.0-3.0) L 11/25/16 02:52 Maurice Test Pos 11/25/16 02:52 ABG Potassium 3.9 mmol/L (3.6-5.2) 11/25/16 02:52 Sodium 137.0 mmol/l (132-148) 11/25/16 02:52 Chloride 104.0 mmol/L (98-107) 11/25/16 02:52 Glucose 287 mg/dl (65-105) H 11/25/16 02:52 Lactate 1.1 mmol/L (0.7-2.1) 11/25/16 02:52 Liter Flow 2.0 11/25/16 02:52 Sodium 138 mmol/L (132-148) 11/25/16 02:49 Potassium 4.6 mmol/L (3.6-5.2) 11/25/16 02:49 Chloride 99 mmol/L (98-107) 11/25/16 02:49 Carbon Dioxide 18 mmol/L (22-30) L 11/25/16 02:49 Anion Gap 26 (10-20) H 11/25/16 02:49 BUN 84 mg/dL (7-17) H 11/25/16 02:49 Creatinine 6.5 MG/DL (0.7-1.2) H 11/25/16 02:49 Est GFR ( Amer) 8 11/25/16 02:49 Est GFR (Non-Af Amer) 6 11/25/16 02:49 POC Glucose (mg/dL) 176 mg/dL (65-110) H 11/25/16 11:47 Random Glucose 286 mg/dL (65-105) H 11/25/16 02:49 Calcium 8.3 mg/dl (8.6-10.4) L 11/25/16 02:49 Magnesium 3.0 mg/dL (1.6-2.3) H 11/25/16 02:49 Total Bilirubin 0.8 mg/dL (0.2-1.3) 11/25/16 02:49 AST 44 U/L (14-36) H D 11/25/16 02:49 ALT 18 U/L (9-52) 11/25/16 02:49 Alkaline Phosphatase 67 U/L (38-126) 11/25/16 02:49 Troponin I < 0.0120 ng/mL (0.00-0.120) 11/25/16 02:49 NT-Pro-B Natriuret Pep 03981 pg/mL (0-900) H 11/25/16 02:49 Total Protein 7.9 g/dL (6.3-8.3) 11/25/16 02:49 Albumin 4.4 g/dL (3.5-5.0) 11/25/16 02:49 Globulin 3.5 gm/dL (2.2-3.9) 11/25/16 02:49 Albumin/Globulin Ratio 1.3 (1.0-2.1) 11/25/16 02:49 Triglycerides 93 mg/dL (0-149) D 11/25/16 05:32 Cholesterol 221 mg/dL (0-199) H 11/25/16 05:32 LDL Cholesterol Direct 128 mg/dL (0-129) 11/25/16 05:32 HDL Cholesterol 54 mg/dL (30-70) 11/25/16 05:32 Thyroxine (T4) 6.23 ug/dL (5.5-11.0) 11/25/16 05:32 TSH 3rd Generation 2.02 mIU/L (0.46-4.68) 11/25/16 05:32 Arterial Blood Potassium 3.9 mmol/L (3.6-5.2) 11/25/16 02:52 - Hospital Course Hospital Course: Patient is a 66 year old female with PMHx of ESRD on HD MWF, CHF, anemia, HTN and DM presents to ED with SOB that started at 10pm on 11/24/16. Patient states she told her daughter that she felt like she could not breathe and her daughter called for medical transport to take them to the ER. Patient states she has had this sensation multiple times and she associates it with having excess fluid in her body. Patient always uses 3 pillows to sleep at night. Patient denies associated diaphoresis but admits to feeling off balance- denies falls. Patient denies cough, has complaint of dry mouth and swollen abdomen. Patient still makes urine. Patient states that she is not taking any medications for HTN or DM because she was told she can't be on her pills anymore and the patient does not want to give herself insulin. Patient states that she has had bad side effects from multiple HTN medications, antibiotics, and supplements. Patient states she gets abdominal swelling and rashes from glycerin, vitamin D gel capsules (contained glycerine), levofloxacin, calcium acetate, propylene glycol, kayexalate. She denies chest pain, nausea/vomiting/diarrhea, dysuria. Pt admitted to hospital with appropriate medical management provided, SOB improved with O2, Lasix. Pt was sent to dialysis with improvement in symptoms. Pt requesting to go home, stable from a medical standpoint. Discharged home. Diagnoses medication non compliance ESRD on HD (MWF) HTN Anemia of chronic disease DM Diabetic neuropathy CHF Please see EMR for full account of hospitalization. - Date & Time of H&P Date of H&P: 11/25/16 Time of H&P: 05:01 Discharge Exam - Head Exam Head Exam: ATRAUMATIC, NORMAL INSPECTION, NORMOCEPHALIC - Eye Exam Eye Exam: EOMI, Normal appearance, PERRL Pupil Exam: NORMAL ACCOMODATION, PERRL - ENT Exam ENT Exam: Mucous Membranes Moist, TM's Normal Bilaterally - Neck Exam Neck exam: Full Rom, Normal Inspection, Tenderness (mild, over right side of neck, no palpable masses, lesions or muscle spasms) - Respiratory Exam Respiratory Exam: Clear to PA & Lateral, NORMAL BREATHING PATTERN, UNREMARKABLE. absent: Accessory Muscle Use, Chest Wall Tenderness, Rales, Rhonchi, Respiratory Distress, Stridor Additional comments: Right chest wall with HD catheter in place - Cardiovascular Exam Cardiovascular Exam: REGULAR RHYTHM, +S1, +S2 - GI/Abdominal Exam GI & Abdominal Exam: Normal Bowel Sounds, Soft, Tenderness (mild over RUQ), Unremarkable. absent: Distended (obese), Firm, Guarding, Hernia, Rebound - Extremities Exam Additional comments: LUE with AVF- palpable thrill - Neurological Exam Neurological exam: Alert, CN II-XII Intact, Oriented x3 - Psychiatric Exam Psychiatric exam: Normal Affect, Normal Mood - Skin Skin Exam: Dry, Intact, Normal Color, Warm Discharge Plan - Follow Up Plan Condition: STABLE Disposition: HOME/ ROUTINE Instructions: Heart Failure (DC), Hemodialysis (DC), Dialysis Diet (DC), Diabetes Mellitus Type 2 in Adults (DC), Diabetic Neuropathy (DC), Chronic Hypertension (DC), Anemia (DC), Diabetic Hyperglycemia (DC), End Stage Kidney Disease (DC) Additional Instructions: Patient stable and ready for discharge as per Dr. Rutledge. Patient is to continue dialysis as scheduled on Mondays, Wednesdays, and Fridays. Please restart all home medications. Please return to hospital if you have a recurrence of symptoms. Referrals: Tyrese German MD [Staff Provider] - Clinical Quality Measures - CQM - Heart Failure Ejection Fraction: 40 % or Greater Left Ventricular Function to be assessed after discharge: No YAMILKA Inhibitor Prescribed: No Contraindication/Reason for not providing: Not indicated Beta-Nate Prescribed: None Contraindication/Reason for not providing: Pt to continue home med: Lopressor Angiotensin II Receptor Nate Prescribed: No Contraindication/Reason for not providing: Not indicated AnticoagulationTherapy for Atrial Fibrillation/Atrialflutter: No Contraindication/Reason for not providing: Not indicated Aldosterone Antagonist Prescribed: No Contraindication/Reason for not providing: not indicated Hydralazine Nitrate Prescribed: No Contraindication/Reason for not providing: Pt to continue home med of Hydralazine Implantable Cardioverter Defibrillator Therapy: No Contraindication/Reason for not providing: Not indicated Cardiac Resynchronization Therapy Prescribed: No Contraindication/Reason for not providing: Not indicated Will be discharged to: Home Follow Up Date (must be within 7 days from discharge): 12/02/16 Follow Up Time: 09:00 - Date & Time of Discharge Summary Date of Discharge Summary: 11/25/16 Time of Discharge Summary: 14:23 <RutledgeClay cabrera Percy - Last Filed: 11/25/16 15:33> Provider - Provider Date of Admission: 11/25/16 03:47 Attending physician: Nagi aMnn MD Hospital Course - Lab Results Lab Results: Most Recent Lab Values WBC 10.9 K/uL (4.8-10.8) H 11/25/16 02:49 RBC 3.77 Mil/uL (3.80-5.20) L 11/25/16 02:49 Hgb 10.7 g/dL (11.0-16.0) L D 11/25/16 02:49 Hct 33.8 % (34.0-47.0) L 11/25/16 02:49 MCV 89.6 fL (81.0-99.0) 11/25/16 02:49 MCH 28.3 pg (27.0-31.0) 11/25/16 02:49 MCHC 31.6 g/dL (33.0-37.0) L 11/25/16 02:49 RDW 17.3 % (11.5-14.5) H 11/25/16 02:49 Plt Count 314 K/uL (130-400) 11/25/16 02:49 MPV 8.1 fL (7.2-11.7) 11/25/16 02:49 Neut % (Auto) 73.8 % (50.0-75.0) 11/25/16 02:49 Lymph % (Auto) 15.5 % (20.0-40.0) L 11/25/16 02:49 [place] % (Auto) 5.1 % (0.0-10.0) 11/25/16 02:49 Eos % (Auto) 3.7 % (0.0-4.0) 11/25/16 02:49 Baso % (Auto) 1.9 % (0.0-2.0) 11/25/16 02:49 Neut # 8.1 K/uL (1.8-7.0) H 11/25/16 02:49 Lymph # 1.7 K/uL (1.0-4.3) 11/25/16 02:49 [place] # 0.6 K/uL (0.0-0.8) 11/25/16 02:49 Eos # 0.4 K/uL (0.0-0.7) 11/25/16 02:49 Baso # 0.2 K/uL (0.0-0.2) 11/25/16 02:49 PT 10.0 SECONDS (9.7-12.2) 11/25/16 02:50 INR 0.9 11/25/16 02:50 APTT 31 SECONDS (21-34) 11/25/16 02:50 Puncture Site Rr 11/25/16 02:52 pCO2 42 mm/Hg (35-45) 11/25/16 02:52 pO2 57 mm/Hg (80-100) L 11/25/16 02:52 HCO3 19.8 mmol/L (21-28) L 11/25/16 02:52 ABG pH 7.29 (7.35-7.45) L 11/25/16 02:52 ABG Total CO2 21.5 mmol/L (22-28) L 11/25/16 02:52 ABG O2 Saturation 90.3 % (95-98) L 11/25/16 02:52 ABG Base Excess -6.1 mmol/L (-2.0-3.0) L 11/25/16 02:52 Maurice Test Pos 11/25/16 02:52 ABG Potassium 3.9 mmol/L (3.6-5.2) 11/25/16 02:52 Sodium 137.0 mmol/l (132-148) 11/25/16 02:52 Chloride 104.0 mmol/L (98-107) 11/25/16 02:52 Glucose 287 mg/dl (65-105) H 11/25/16 02:52 Lactate 1.1 mmol/L (0.7-2.1) 11/25/16 02:52 Liter Flow 2.0 11/25/16 02:52 Sodium 138 mmol/L (132-148) 11/25/16 02:49 Potassium 4.6 mmol/L (3.6-5.2) 11/25/16 02:49 Chloride 99 mmol/L (98-107) 11/25/16 02:49 Carbon Dioxide 18 mmol/L (22-30) L 11/25/16 02:49 Anion Gap 26 (10-20) H 11/25/16 02:49 BUN 84 mg/dL (7-17) H 11/25/16 02:49 Creatinine 6.5 MG/DL (0.7-1.2) H 11/25/16 02:49 Est GFR ( Amer) 8 11/25/16 02:49 Est GFR (Non-Af Amer) 6 11/25/16 02:49 POC Glucose (mg/dL) 176 mg/dL (65-110) H 11/25/16 11:47 Random Glucose 286 mg/dL (65-105) H 11/25/16 02:49 Calcium 8.3 mg/dl (8.6-10.4) L 11/25/16 02:49 Magnesium 3.0 mg/dL (1.6-2.3) H 11/25/16 02:49 Total Bilirubin 0.8 mg/dL (0.2-1.3) 11/25/16 02:49 AST 44 U/L (14-36) H D 11/25/16 02:49 ALT 18 U/L (9-52) 11/25/16 02:49 Alkaline Phosphatase 67 U/L (38-126) 11/25/16 02:49 Troponin I < 0.0120 ng/mL (0.00-0.120) 11/25/16 02:49 NT-Pro-B Natriuret Pep 81648 pg/mL (0-900) H 11/25/16 02:49 Total Protein 7.9 g/dL (6.3-8.3) 11/25/16 02:49 Albumin 4.4 g/dL (3.5-5.0) 11/25/16 02:49 Globulin 3.5 gm/dL (2.2-3.9) 11/25/16 02:49 Albumin/Globulin Ratio 1.3 (1.0-2.1) 11/25/16 02:49 Triglycerides 93 mg/dL (0-149) D 11/25/16 05:32 Cholesterol 221 mg/dL (0-199) H 11/25/16 05:32 LDL Cholesterol Direct 128 mg/dL (0-129) 11/25/16 05:32 HDL Cholesterol 54 mg/dL (30-70) 11/25/16 05:32 Thyroxine (T4) 6.23 ug/dL (5.5-11.0) 11/25/16 05:32 TSH 3rd Generation 2.02 mIU/L (0.46-4.68) 11/25/16 05:32 Arterial Blood Potassium 3.9 mmol/L (3.6-5.2) 11/25/16 02:52 Attending/Attestation - Attestation I have personally seen and examined this patient.: Yes I have fully participated in the care of the patient.: Yes I have reviewed all pertinent clinical information, including history, physical exam and plan: Yes Notes (Text): Medical attending: Patient was seen and examined by me, agree with the above note by medical technologist. The patient normally gets hemodialysis on Friday and Friday, however over the weekend the patient explained that she became short of breath she felt like she could not wait and that she needed hemodialysis to be done right away. When we saw her she reported that she is feeling much better her breathing had improved. So at this time of discharge the patient, she's can need to continue to follow- up with her outpatient hemodialysis. Thank you very much, Clay Rutledge 11/25/16 15:32
[2016-11-25 14:29] VITALS: BP 167/78
--- NOTE | 2016-11-25 14:44 | PCM.HF ---
Heart Failure Core Measure - Heart Failure Ejection Fraction: 40 % or Greater (EF 50%) YAMILKA Inhibitor Prescribed: No Contraindication/Reason for not providing: ESRD Beta-Nate Prescribed: Metoprolol Succinate Angiotensin II Receptor Nate Prescribed: No Contraindication/Reason for not providing: ESRD AnticoagulationTherapy for Atrial Fibrillation/Atrialflutter: No Contraindication/Reason for not providing: no afib Aldosterone Antagonist Prescribed: No Contraindication/Reason for not providing: renal dysfunction Hydralazine Nitrate Prescribed: Yes Implantable Cardioverter Defibrillator Therapy: No Contraindication/Reason for not providing: EF>40% Cardiac Resynchronization Therapy Prescribed: No Contraindication/Reason for not providing: not indicated - Follow up Will be discharged to: Home Follow Up Date (must be within 7 days from discharge): 12/02/16 Follow Up Time: 09:00
--- NOTE | 2016-11-25 15:27 | CON ---
DATE: 11/25/2016 The patient is a 66-year-old woman who has been on maintenance hemodialysis for several months. She presents with increased shortness of breath, brought in by her daughter. She was found to have CHF o n chest x-ray and is now on dialysis for removal of fluid and treatment of congestive heart failure. PAST MEDICAL HISTORY: Hypertension, diabetes mellitus type 2, diabetic nephropathy and has had prior CHF episodes. PAST SURGICAL HISTORY: Cholecystectomy and a left arm AV fistula which is still not being used at [facility] yet. MEDICATIONS: Include insulin p.r.n., Protonix. She is not taking many medications. ALLERGIES: She claims she is ALLERGIC TO MANY MEDICATIONS. FAMILY HISTORY: Noncontributory. SOCIAL HISTORY: Negative for smoking, alcohol abuse or illicit drug use. REVIEW OF SYSTEMS: Significant for the increasing shortness of breath on exertion, 2 blocks. Now she is very short of breath. She has no nausea, vomiting. No chest pain, no visual disturbances or hearing deficits and she does not take many medications. She claims she has allergic reactions t o multiple medications. PHYSICAL EXAMINATION: GENERAL: She is a well-developed woman seen at dialysis. VITAL SIGNS: Blood pressure when seen at dialysis was approximately /77, pulse 84, pulse ox is 99% on nasal cannula, temperature 97.5. HEENT: Anicteric. Mouth was clear. NECK: No JVD. LUNGS: Lung shepherd were clear when seen. HEART: Regular rhythm, no murmur. ABDOMEN: Soft, benign. No mass or organomegaly. EXTREMITIES: She had a left upper extremity AV fistula with a bruit. She had a right IJ catheter st ill in place. NEUROLOGIC: No focal deficits. DIAGNOSTICS: Chest x-ray showed congestive heart failure. LABORATORY DATA: Hemoglobin 10.7. She had a blood gas with pH of 7.29, pCO2 of 42. Sodium 138, pot assium 4.6, creatinine 6.5, blood sugar of approximately range. IMPRESSION: The patient has congestive heart failure due to fluid overload, end-stage renal disease due to diabetic nephropathy. She has diabetes mellitus type 2, hypertension, prior episodes of conge stive heart failure and also dyslipidemia. PLAN: Will be ultrafiltration with approximately 3000 mL fluid removed at dialysis . The patient wo uld like to go home afterwards, which will be reassessed to see if she stable for discharge. We will follow up. Tyrese German MD cc: [id number] TT: 11/25/2016 15:26:48 Confirmation # [id number] Dictation # [id number] dn
[2016-11-25 16:34] VITALS: PULSE 78
--- NOTE | 2016-11-28 08:35 | CARD ---
APPROVED REPORT EKG Measurement Heart [id number] <Conclusion> Normal sinus rhythm Possible Left atrial enlargement Left axis deviation Left bundle branch block Abnormal ECG
== END 2016-11-25 15:30 | disposition home or self-care (01) ==
LOC: C.ER 01:55 → C.9E 03:47 → C.6T 10:54
PROVIDERS: ADMIT Family Medicine; ATTEND Family Medicine
DX: I13.2 Hypertensive heart and chronic kidney disease with heart failure and with stage 5 chronic kidney disease, or end stage renal disease (principal); I50.9 Heart failure, unspecified; N18.6 End stage renal disease; E11.22 Type 2 diabetes mellitus with diabetic chronic kidney disease; Z99.2 Dependence on renal dialysis; Z79.4 Long term (current) use of insulin; D63.8 Anemia in other chronic diseases classified elsewhere; E78.00 Pure hypercholesterolemia, unspecified; Z87.01 Personal history of pneumonia (recurrent); E03.9 Hypothyroidism, unspecified; G47.30 Sleep apnea, unspecified; E78.5 Hyperlipidemia, unspecified
CPT/HCPCS: 71010; 80053; 80061; 82803; 82948; 83735; 83880; 84436; 84443; 84484; 85025; 85610; 85730; 93005; 96374; 96375; 99285; G0257; G0378; J0360; J1940

== ENCOUNTER 2016-12-09 04:46 | Observation (INO) | payer MEDICARE, OTHER ==
--- NOTE | 2016-12-09 04:51 | C.PDOC ---
History Of Present Illness pt brought in by her daugther due to respiratory distress. Pt is a friday HD. No cp. Cyanotic, diaphoretic. Time Seen by Provider: 12/09/16 04:50 History Per: Family History/Exam Limitations: clinical condition Onset/Duration Of Symptoms: Hrs Current Symptoms Are (Timing): Worse Initiating Event: Other (esrd) Quality: Tightness Exacerbating Factor(s): Exertion, Laying Flat Current Respiratory Medications: See Home Med List Severity: Severe Pain Scale Rating Of: 10 Associated Symptoms: Anxiety Reports Recently: Seen In ED, Treated By A Physician, Hospitalized Recent travel outside of the [place]: No Additional History Per: Family Past Medical History Reviewed: Historical Data, Nursing Documentation, Vital Signs Vital Signs: Last Vital Signs Temp 98.5 F 12/09/16 05:02 Pulse 90 12/09/16 06:12 Resp 22 12/09/16 06:12 BP 190/84 H 12/09/16 06:12 Pulse Ox 98 12/09/16 06:34 - Medical History PMH: Anemia, Anxiety, Back Problems, CHF, Diabetes, Gall Bladder Disease, HTN, Hypercholesterolemia, Hypothyroidism, Peripheral Edema, Pneumonia, End Stage Renal Disease, Chronic Kidney Disease, Sleep Apnea, TIA (right sided weakness) Surgical History: Cholecystectomy, Endoscopy, Tonsillectomy - [facility] Procedures ASSISTANCE WITH RESPIRATORY VENTILATION, <24 HRS, CPAP (04/29/16) COLONOSCOPY (02/01/15) EXCISION OF LARGE INTESTINE, ENDO, DIAGN (04/29/16) FLUOROSCOPY OF SUPERIOR VENA CAVA, GUIDANCE (05/07/16) INSERTION OF ENDOTRACHEAL AIRWAY INTO TRACHEA, VIA OPENING (05/07/16) INSERTION OF INFUSION DEV INTO SUP VENA CAVA, PERC APPROACH (09/15/16) INTRAOPER CHOLANGIOGRAM (12/05/14) LAPAROSCOPIC CHOLECYSTECTOMY (12/05/14) LAPAROSCOPIC LIVER BIOPSY (12/05/14) PERFORMANCE OF URINARY FILTRATION, MULTIPLE (09/15/16) REMOVAL OF INFUSION DEVICE FROM UPPER VEIN, NET DEVELOPER SOFTWARE ENGINEER C APPROACH (08/14/16) RESPIRATORY VENTILATION, 24-96 CONSECUTIVE HOURS (05/07/16) TRANSFUSE NONAUT RED BLOOD CELLS IN PERIPH VEIN, PERC (04/29/16) Family History: States: No Known Family Hx, Hypertension (mother and father) - Social History Hx Tobacco Use: No Hx Alcohol Use: No Hx Substance Use: No - Immunization History Hx Tetanus Toxoid Vaccination: No Hx Influenza Vaccination: No Hx Pneumococcal Vaccination: No Review Of Systems Review Of Systems: ROS cannot be obtained secondary to pt's inabilty to answer questions. Physical Exam - Physical Exam Appears: In Acute Distress Skin: Diaphoretic Head: Atraumatic Eye(s): bilateral: Normal Inspection Nose: Flaring Oral Mucosa: Moist Lips: Other (cyanotic) Neck: Supple Chest: Symmetrical, Other (HD shunt left chest) Cardiovascular: Rhythm Regular Respiratory: Decreased Breath Sounds, Rales Gastrointestinal/Abdominal: Soft, No Tenderness, No Distention Back: Normal Inspection Extremity: Normal ROM, Pedal Edema (trace), Other (left hd shunt good thrill and bruit) Extremity: Bilateral: Atraumatic, Normal Color And Temperature Neurological/Psych: Oriented x3, Normal Speech, Normal Cognition Gait: Unable To Assess ED Course And Treatment - Laboratory Results Result Diagrams: 12/09/16 04:52 12/09/16 05:32 ECG: Interpreted By Me, Viewed By Me ECG Rhythm: Sinus Rhythm (99), L BBB, Nonspecific Changes (unchanged from ) O2 Sat by Pulse Oximetry: 98 Pulse Ox Interpretation: Normal - Radiology CXR: Interpreted by Me, Viewed By Me CXR Interpretation: Yes: Cardiomegaly, Other (acute pulm edema, r chest hd catheter) Progress Note: pt and her daugther refused bipap and medications. they understand that because they refuse, the patient may , suffer irreversible damage. Nurses spoke with the patient and her daughter (in greek[place] as well), but they still refuse. They states that the patient may have an allergic reaction. and they do not want anything given. 5:17 am Pt finally accepted the bipap machine. spoke with edmond. will do emergent hd Critical Care Time - Critical Care Note Total Time (in mins): 30 Documented critical care: time excludes all time spent performing seperately billable procedures. Disposition Discussed With : Nagi Mann Comment: accepted the pt on his service and took over the care at 6:29 AM Doctor Will See Patient In The: ED Counseled Patient/Family Regarding: Studies Performed, Diagnosis - Disposition Referrals: Eduardo Lopez MD [Primary Care Provider] - Disposition: HOSPITALIZED Disposition Time: 04:51 Condition: GUARDED - POA Present On Arrival: Poor Glycemic Control - Clinical Impression Clinical Impression: ESRD on hemodialysis, Acute pulmonary edema Decision To Admit - Pt Status Changed To: Hospital Disposition Of: Observation - . Bed Request Type: Telemetry Admitting Physician: Nagi Mann Patient Diagnosis: ESRD on hemodialysis, Acute pulmonary edema
[2016-12-09 04:53] VITALS: BMI 30.9
[2016-12-09] MEDS ORDERED: Nitroglycerin 2% Ointment Foilpak UD TOP STA (04:54)
[2016-12-09 05:14] LABS: WHITE BLOOD COUNT 16.4 K/uL (4.8-10.8)
[2016-12-09 05:15] LABS: BASO # 0.1 K/uL (0.0-0.2); BASO % 0.8 % (0.0-2.0); EOS # 0.4 K/uL (0.0-0.7); EOS % 2.3 % (0.0-4.0); HEMATOCRIT 37.1 % (34.0-47.0); LYMPH % 18.2 % (20.0-40.0); MEAN CELL VOLUME 87.2 fL (81.0-99.0); MEAN CORPUSCULAR HEMOGLOBIN 27.2 pg (27.0-31.0); MEAN CORPUSCULAR HGB CONC 31.3 g/dL (33.0-37.0); MEAN PLATELET VOLUME 7.8 fL (7.2-11.7); MONO % 5.9 % (0.0-10.0); RED CELL DISTRIBUTION WIDTH 16.5 % (11.5-14.5)
[2016-12-09 05:18] LABS: INR 0.9
[2016-12-09 05:30] LABS: VENOUS BLOOD GAS BASE EXCESS -7.6 mmol/L (0.0-2.0); VENOUS BLOOD GAS PCO2 66 mmHg (40-60); VENOUS BLOOD PH 7.14 (7.32-7.43)
[2016-12-09 05:37] LABS: CHLORIDE 97 mmol/L (98-107); POTASSIUM 3.9 mmol/L (3.6-5.2); SODIUM 139 mmol/L (132-148)
[2016-12-09 05:39] LABS: AST/SGOT 29 U/L (14-36); BILIRUBIN,TOTAL 0.8 mg/dL (0.2-1.3); CARBON DIOXIDE 16 mmol/L (22-30); GFR AFRICAN-AMERICAN 6
[2016-12-09 05:40] LABS: ALB/GLOB RATIO 1.2 (1.0-2.1); ALKALINE PHOSPHATASE 87 U/L (38-126); ALT/SGPT 11 U/L (9-52); BLOOD UREA NITROGEN 74 mg/dL (7-17); CALCIUM 8.5 mg/dl (8.6-10.4); GLUCOSE,RANDOM 318 mg/dL (65-105); MAGNESIUM 2.5 mg/dL (1.6-2.3)
--- NOTE | 2016-12-09 09:26 | RAD ---
PROCEDURE: CHEST RADIOGRAPH, 1 VIEW HISTORY: Shortness of breath COMPARISON: 11/25/2016 FINDINGS: LUNGS: Moderate to severe venous congestion with bibasilar airspace opacities and small left pleural effusion. Right-sided venous catheter in stable position. Additional tubing projects over the left jessenia thorax, possibly external. PLEURA: As above. CARDIOVASCULAR: Cardiomegaly. OSSEOUS STRUCTURES: No significant abnormalities. VISUALIZED UPPER ABDOMEN: Normal. OTHER FINDINGS: None. IMPRESSION: Moderate to severe venous congestion with bibasilar airspace opacities and small left pleural effusion. Right-sided venous catheter in stable position. Additional tubing projects over the left jessenia thorax, possibly external.
--- NOTE | 2016-12-09 10:05 | CP.PCM.HP ---
<Christine Osborne - Last Filed: 12/09/16 17:51> History of Present Illness - History of Present Illness History of Present Illness: CC: shortness of breath HPI: Patient is a 66 year old female with past medical history of ESRD on HD MWF , CHF, anemia, HTN, and DM presenting to the ED with SOB. Patient states the SOB began 9-10pm last night and is similar to the symptoms which led to her prior admission at [facility] on 11/25/16. Patient describes the SOB as tightness due to fluid in her mid sternum region. She admits to associated diaphoresis, dizziness, and nausea, stating she vomited one time last night. Patient also complains of cough producing thick, white frothy phlegm that has been persistent since her last hospital admission. She additionally complains of right upper quadrant pain that has been persistent over the past 2 years but has increased in intensity since last night along with an episode of non bloody diarrhea. Patient states she has allergies and side effects from all of her medications/medication fillers, and admits to not taking any of her medications over the past 2 weeks since her last admission. She denies palpitations, chest pain, constipation, dysuria, lower extremity swelling, numbness, and tingling. PMHx - DM II, HTN, HLD, CKD on HD MWF for the past 2 months Surg - Cholecystectomy 2 years ago , Tonsillectomy, AVF Fam HX - Father - HTN, Mother - HTN Allergies - phoslo, glycerin, levofloxacin, propylene glycol. kayexalate, seafood Meds: Patient should be taking Lasix 80 mg daily, Hydralazine 50 mg PO TID, Imdur 30 mg PO daily and Lopressor 25 mg PO BID, but does not take them. Social - denies drug, tobacco, alcohol use; lives with daughter PMD: Dr. Lopez Outpt nephro: Dr. German Present on Admission - Present on Admission Any Indicators Present on Admission: No Review of Systems - Constitutional Constitutional: absent: Fever, Headache - EENT Eyes: absent: Blurred Vision, Change in Vision Ears: absent: Decreased Hearing, Ear Discharge Nose/Mouth/Throat: absent: Nasal Congestion, Nasal Discharge - Cardiovascular Cardiovascular: Diaphoresis. absent: Chest Pain, Chest Pain at Rest - Respiratory Respiratory: Cough, Dyspnea, Dyspnea on Exertion - Gastrointestinal Gastrointestinal: Abdominal Pain, Diarrhea, Nausea - Genitourinary Genitourinary: Urinary Frequency - Musculoskeletal Musculoskeletal: absent: Back Pain - Integumentary Integumentary: Swelling. absent: Dry Skin Additional comments: scratches on legs - Neurological Neurological: absent: Abnormal Hearing, Abnormal Movements, Confusion - Psychiatric Psychiatric: absent: Abnormal Sleep Pattern, Anxiety - Hematologic/Lymphatic Hematologic: absent: Easy Bleeding, Easy Bruising Past Patient History - Infectious Disease Hx of Infectious Diseases: None - Past Medical History & Family History Past Medical History?: Yes - Past Social History Smoking Status: Never Smoked - CARDIAC Hx Congestive Heart Failure: Yes Hx Hypercholesterolemia: Yes Hx Hypertension: Yes Hx Peripheral Edema: Yes - PULMONARY Hx Pneumonia: Yes Hx Sleep Apnea: Yes - NEUROLOGICAL Hx Transient Ischemic Attacks (TIA): Yes (right sided weakness) - HEENT Hx HEENT Problems: Yes Other/Comment: Wears eyeglasses for reading/watching TV - RENAL Hx Chronic Kidney Disease: Yes - ENDOCRINE/METABOLIC Hx Hypothyroidism: Yes - HEMATOLOGICAL/ONCOLOGICAL Hx Anemia: Yes - INTEGUMENTARY Hx Dermatological Problems: No - MUSCULOSKELETAL/RHEUMATOLOGICAL Hx Musculoskeletal Disorders: Yes Hx Back Pain: Yes Hx Osteomyelitis: Yes Other/Comment: Lt 2nd toe osteomylitis HX - GASTROINTESTINAL Hx Gall Bladder Disease: Yes - GENITOURINARY/GYNECOLOGICAL Hx Genitourinary Disorders: No - PSYCHIATRIC Hx Anxiety: Yes Hx Substance Use: No - SURGICAL HISTORY Hx Cholecystectomy: Yes Hx Tonsillectomy: Yes - ANESTHESIA Hx Anesthesia: Yes Hx Anesthesia Reactions: No Hx Malignant Hyperthermia: No Meds Allergies/Adverse Reactions: Allergies Allergy/AdvReac Type Severity Reaction Status Date / Time calcium acetate [From PhosLo] Allergy Severe hives Verified 12/09/16 04:57 glycerin Allergy Severe RASH Verified 12/09/16 04:57 Influenza Virus Vaccines Allergy Severe ANAPHYLAXIS Verified 12/09/16 04:57 levofloxacin Allergy Severe numbness Verified 12/09/16 04:57 propylene glycol Allergy Severe SWELLING Verified 12/09/16 04:57 sodium polystyrene sulfonate Allergy Severe SWELLING Verified 12/09/16 04:57 [From Kayexalate] ergocalciferol (vitamin D2) Allergy SWELLING Verified 12/09/16 04:57 [From Vitamin D2] seafood Allergy Severe throat Uncoded 12/09/16 04:57 swelling Physical Exam - Constitutional Appears: Non-toxic, No Acute Distress - Head Exam Head Exam: ATRAUMATIC, NORMAL INSPECTION, NORMOCEPHALIC - Eye Exam Eye Exam: EOMI, Normal appearance, PERRL Pupil Exam: NORMAL ACCOMODATION - ENT Exam ENT Exam: Mucous Membranes Moist - Neck Exam Neck exam: Positive for: Full Rom - Respiratory Exam Respiratory Exam: Rales, Respiratory Distress. absent: Wheezes, Stridor - Cardiovascular Exam Cardiovascular Exam: +S1, +S2 - GI/Abdominal Exam GI & Abdominal Exam: Distended, Normal Bowel Sounds, Soft, Tenderness - Extremities Exam Extremities exam: Positive for: full ROM, joint swelling (1+ edema), normal capillary refill, pedal edema, pedal pulses present Additional comments: self inflicted scratches on LE - Back Exam Back exam: FULL ROM - Neurological Exam Neurological exam: Alert, Oriented x3 - Psychiatric Exam Psychiatric exam: Normal Affect, Normal Mood - Skin Skin Exam: Dry, Warm Additional comments: self- inflicted scratches Results - Vital Signs Recent Vital Signs: Last Vital Signs Temp 97.6 F 12/09/16 08:30 Pulse 102 H 12/09/16 08:30 Resp 24 12/09/16 08:30 BP 218/110 H 12/09/16 08:30 Pulse Ox 100 12/09/16 08:30 - Labs Result Diagrams: 12/09/16 14:35 12/09/16 14:35 Labs: Laboratory Results - last 24 hr 12/09/16 08:35 POC Glucose (mg/dL) 292 H Assessment & Plan - Assessment and Plan (Free Text) Assessment: Dyspnea Assessment and Plan: BIPAP therapy with high flow nc as needed. If patient can tolerate, nc may use. Patient received 60mg lasix IV in ER, patient to have HD this AM F/U Chest XRAY in AM Status: Acute ESRD on hemodialysis Assessment and Plan: Patient has HD on MWF Dr. German consulted- dialysis this AM and tmrw Status: Acute Leukocytosis Assessment and Plan: F/U Price Cultures Elevated at 16.4. Increased to 23.5 Chest Xray: mod to severe venous congestion with bibasilar space opacities and small left pleural effusion. Status: Acute Abdominal Pain Assessment and Plan: F/U Price Cultures F/U CT abdomen and pelvis Zosyn renal dose Q8h with Florastor Status: Chronic HTN (hypertension) Assessment and Plan: Uncontrolled- Non compliant with meds per daughter Gave two 5mg doses of hydralazine Patient counseled on importance of taking BP meds Status: Chronic Diabetes mellitus Assessment and Plan: ISS with accuchecks ACHS Hgb A1c in AM Status: Chronic Prophylactic measure Assessment and Plan: Heparin 5000 units q12h- Patient refused AM dose SCDs contraindicated at this time due to B/L LE swelling Status: Acute <Clay Rutledge H - Last Filed: 12/10/16 09:01> Results - Vital Signs Recent Vital Signs: Last Vital Signs Temp 98.7 F 12/10/16 07:59 Pulse 81 12/10/16 07:59 Resp 20 12/10/16 07:59 BP 106/63 12/10/16 07:59 Pulse Ox 96 12/10/16 07:59 - Labs Result Diagrams: 12/10/16 06:28 12/10/16 06:28 Labs: Laboratory Results - last 24 hr 12/09/16 12/09/16 12/09/16 12:23 14:35 14:35 WBC 23.5 H RBC 4.50 Hgb 12.0 Hct 38.2 MCV 85.0 D MCH 26.7 L MCHC 31.4 L RDW 16.5 H Plt Count 313 MPV 7.8 Neut % (Auto) Lymph % (Auto) [place] % (Auto) Eos % (Auto) Baso % (Auto) Neut # Lymph # [place] # Eos # Baso # PT INR APTT Sodium 136 Potassium 4.0 Chloride 93 L Carbon Dioxide 24 Anion Gap 23 H BUN 41 H Creatinine 4.6 H Est GFR ( Amer) 12 Est GFR (Non-Af Amer) 10 POC Glucose (mg/dL) 192 H Random Glucose 181 H Hemoglobin A1c Calcium 8.7 Phosphorus 5.0 H Magnesium Total Bilirubin 0.9 AST 29 ALT 14 Alkaline Phosphatase 95 Total Protein 8.5 H Albumin 4.7 Globulin 3.8 Albumin/Globulin Ratio 1.2 Urine Color Urine Clarity Urine pH Ur Specific Sparks Urine Protein Urine Glucose (UA) Urine Ketones Urine Blood Urine Nitrate Urine Bilirubin Urine Urobilinogen Ur Leukocyte Esterase Urine WBC (Auto) Urine RBC (Auto) Urine WBC Clumps (Auto) Ur Squamous Epith Cells Urine Bacteria 12/09/16 12/09/16 12/10/16 16:24 21:35 06:09 WBC RBC Hgb Hct MCV MCH MCHC RDW Plt Count MPV Neut % (Auto) Lymph % (Auto) [place] % (Auto) Eos % (Auto) Baso % (Auto) Neut # Lymph # [place] # Eos # Baso # PT INR APTT Sodium Potassium Chloride Carbon Dioxide Anion Gap BUN Creatinine Est GFR ( Amer) Est GFR (Non-Af Amer) POC Glucose (mg/dL) 224 H 234 H 176 H Random Glucose Hemoglobin A1c Calcium Phosphorus Magnesium Total Bilirubin AST ALT Alkaline Phosphatase Total Protein Albumin Globulin Albumin/Globulin Ratio Urine Color Urine Clarity Urine pH Ur Specific [place] Urine Protein Urine Glucose (UA) Urine Ketones Urine Blood Urine Nitrate Urine Bilirubin Urine Urobilinogen Ur Leukocyte Esterase Urine WBC (Auto) Urine RBC (Auto) Urine WBC Clumps (Auto) Ur Squamous Epith Cells Urine Bacteria 12/10/16 12/10/16 12/10/16 06:28 06:28 06:28 WBC 11.2 H D RBC 3.80 Hgb 10.4 L Hct 32.1 L MCV 84.4 MCH 27.5 MCHC 32.5 L RDW 16.2 H Plt Count 278 MPV 8.1 Neut % (Auto) 81.5 H Lymph % (Auto) 11.1 L [place] % (Auto) 6.4 Eos % (Auto) 0.5 Baso % (Auto) 0.5 Neut # 9.1 H Lymph # 1.2 [place] # 0.7 Eos # 0.1 Baso # 0.1 PT 12.4 H INR 1.1 APTT 28 Sodium 133 Potassium 3.5 L Chloride 92 L Carbon Dioxide 26 Anion Gap 19 BUN 55 H Creatinine 5.9 H Est GFR ( Amer) 9 Est GFR (Non-Af Amer) 7 POC Glucose (mg/dL) Random Glucose 161 H Hemoglobin A1c Calcium 7.6 L Phosphorus 6.0 H Magnesium 2.0 Total Bilirubin 0.8 AST 20 ALT 15 Alkaline Phosphatase 71 Total Protein 6.8 Albumin 3.6 Globulin 3.2 Albumin/Globulin Ratio 1.1 Urine Color Urine Clarity Urine pH Ur Specific Spar[place] Urine Protein Urine Glucose (UA) Urine Ketones Urine Blood Urine Nitrate Urine Bilirubin Urine Urobilinogen Ur Leukocyte Esterase Urine WBC (Auto) Urine RBC (Auto) Urine WBC Clumps (Auto) Ur Squamous Epith Cells Urine Bacteria 12/10/16 12/10/16 06:28 07:40 WBC RBC Hgb Hct MCV MCH MCHC RDW Plt Count MPV Neut % (Auto) Lymph % (Auto) [place] % (Auto) Eos % (Auto) Baso % (Auto) Neut # Lymph # [place] # Eos # Baso # PT INR APTT Sodium Potassium Chloride Carbon Dioxide Anion Gap BUN Creatinine Est GFR ( Amer) Est GFR (Non-Af Amer) POC Glucose (mg/dL) Random Glucose Hemoglobin A1c 7.5 H Calcium Phosphorus Magnesium Total Bilirubin AST ALT Alkaline Phosphatase Total Protein Albumin Globulin Albumin/Globulin Ratio Urine Color Yellow Urine Clarity Turbid Urine pH 5.0 Ur Specific [place] 1.016 Urine Protein 2+ H Urine Glucose (UA) 3+ H Urine Ketones Negative Urine Blood 1+ H Urine Nitrate Negative Urine Bilirubin Negative Urine Urobilinogen Normal Ur Leukocyte Esterase 2+ H Urine WBC (Auto) 28406 H Urine RBC (Auto) 196 H Urine WBC Clumps (Auto) Mod H Ur Squamous Epith Cells 20 H Urine Bacteria Many H Attending/Attestation - Attestation I have personally seen and examined this patient.: Yes I have fully participated in the care of the patient.: Yes I have reviewed all pertinent clinical information: Yes Notes (Text): Medical attending: Patient was seen and examined by me, agrees the above note by biomedical equipment specialist. The patient was seen in the emergency room with the biomedical equipment specialist. Family was present at bedside as well. By the time I saw her she was on BiPAP, she had already been given IV Lasix as well from what I understand there is concern was that the patient does not routinely take her medication. Per review of chest x-rays concerning for fluid overload and pulmonary congestion, from what I understand the emergency room is very spoken with nephrology and at some point the patient will get hemodialysis. Hopefully the dialysis will help with the difficulty breathing as well as the elevated blood pressure we gave a total of 10 of IV hydralazine in the ER for the time being until she can get the dialysis. Also of note the patient does have elevated white blood cell count, she also reports some abdominal pain as well. The patient's family member at bedside was reluctant to allow us to give into antibiotics, however after I discussed with the family member she would allow us to give any antibiotics. We need to monitor for fevers chills, as well as check blood cultures. We will also get a CT of the chest abdomen and pelvis. The patient explains that the pain seems to be in the right upper quadrant family explains that she's had a previous gallbladder removal as well so after discussing with the family member there to allow us to give IV Zosyn for the time being We need to monitor blood cultures as well as the CAT scan. And hopefully she'll feel better with getting hemodialysis. Thank you very much, Clay Rutledge
[2016-12-09] MEDS ORDERED: Piperacillin/Tazobact 2.25 GM in Sodium Chloride 100 ML IVPB SCH (13:00)
--- NOTE | 2016-12-09 13:28 | CP.PCM.CON ---
History of Present Illness - History of Present Illness History of Present Illness: 66 y/o female presents to ED with pulmoary edema needing immediate dialysis. Has been noncompliant with HD and meds PMH: ESRD- ON DIALYSIS X FEW MONTHS DM 2 HTN PAD TIA HYPOTHYROIDISM PSH: AV FISTULA TOE AMPUTATION CHOLEYCYSTECTOMY TONSILLECTOMY CONSULT DICATAED WILL ARRANGE FOR DIALYSIS TODAY AND 12/10- PATIENT REFUSES EXTRA UF AT DIALYSIS DUE TO CRAMPS Past Patient History - Infectious Disease Hx of Infectious Diseases: None - Past Medical History & Family History Past Medical History?: Yes - Past Social History Smoking Status: Never Smoked - CARDIAC Hx Congestive Heart Failure: Yes Hx Hypercholesterolemia: Yes Hx Hypertension: Yes Hx Peripheral Edema: Yes - PULMONARY Hx Pneumonia: Yes Hx Sleep Apnea: Yes - NEUROLOGICAL Hx Transient Ischemic Attacks (TIA): Yes (right sided weakness) - HEENT Hx HEENT Problems: Yes Other/Comment: Wears eyeglasses for reading/watching TV - RENAL Hx Chronic Kidney Disease: Yes - ENDOCRINE/METABOLIC Hx Hypothyroidism: Yes - HEMATOLOGICAL/ONCOLOGICAL Hx Anemia: Yes - INTEGUMENTARY Hx Dermatological Problems: No - MUSCULOSKELETAL/RHEUMATOLOGICAL Hx Musculoskeletal Disorders: Yes Hx Back Pain: Yes Hx Osteomyelitis: Yes Other/Comment: Lt 2nd toe osteomylitis HX - GASTROINTESTINAL Hx Gall Bladder Disease: Yes - GENITOURINARY/GYNECOLOGICAL Hx Genitourinary Disorders: No - PSYCHIATRIC Hx Anxiety: Yes Hx Substance Use: No - SURGICAL HISTORY Hx Cholecystectomy: Yes Hx Tonsillectomy: Yes - ANESTHESIA Hx Anesthesia: Yes Hx Anesthesia Reactions: No Hx Malignant Hyperthermia: No Meds Allergies/Adverse Reactions: Allergies Allergy/AdvReac Type Severity Reaction Status Date / Time calcium acetate [From PhosLo] Allergy Severe hives Verified 12/09/16 04:57 glycerin Allergy Severe RASH Verified 12/09/16 04:57 Influenza Virus Vaccines Allergy Severe ANAPHYLAXIS Verified 12/09/16 04:57 levofloxacin Allergy Severe numbness Verified 12/09/16 04:57 propylene glycol Allergy Severe SWELLING Verified 12/09/16 04:57 sodium polystyrene sulfonate Allergy Severe SWELLING Verified 12/09/16 04:57 [From Kayexalate] ergocalciferol (vitamin D2) Allergy SWELLING Verified 12/09/16 04:57 [From Vitamin D2] seafood Allergy Severe throat Uncoded 12/09/16 04:57 swelling - Medications Medications: Current Medications Famotidine (Pepcid) 20 mg PO BID [facility] Last Admin: 12/09/16 10:20 Dose: 20 mg Heparin Sodium (Porcine) (Heparin) 5,000 units SC Q12 [facility] Last Admin: 12/09/16 10:20 Dose: Not Given Piperacillin Sod/Tazobactam (Sod 2.25 gm/ Sodium Chloride) 100 mls @ 200 mls/ hr IVPB Q8H [facility] Saccharomyces Boulardii (Florastor) 250 mg PO BID [facility] Results - Vital Signs Recent Vital Signs: Last Vital Signs Temp 97.1 F L 12/09/16 10:50 Pulse 97 H 12/09/16 11:40 Resp 22 12/09/16 11:40 BP 137/68 12/09/16 12:50 Pulse Ox 100 12/09/16 08:30 - Labs Result Diagrams: 12/09/16 04:52 12/09/16 05:32 Labs: Laboratory Results - last 24 hr 12/09/16 12/09/16 08:35 12:23 POC Glucose (mg/dL) 292 H 192 H
--- NOTE | 2016-12-09 14:13 | CON ---
DATE: 12/09/2016 The patient is a 66-year-old female who presents to the Emergency Department with pulmonary edema. S he had missed dialysis and has been noncompliant with dialysis and her medications. She needs immedi ate dialysis for pulmonary edema. She has been noncompliant overall. PAST MEDICAL HISTORY: She has end-stage renal disease, been on maintenance hemodialysis for a few mo nths, diabetes mellitus type 2, diabetic nephropathy, hypertension, peripheral arterial disease, TIA, hypothyroidism. PAST SURGICAL HISTORY: Is that of AV fistula, a toe amputation, cholecystectomy and tonsillectomy. MEDICATIONS: Include Pepcid, PhosLo, and now she was put on antibiotics in the hospital for possible pneumonia. FAMILY HISTORY: Noncontributory. SOCIAL HISTORY: Positive for a former smoker. No history of alcohol abuse or illicit drug use. REVIEW OF SYSTEMS: Significant for increasing shortness of breath on exertion. She has orthopnea. No chest pain. No fevers, no chills. No new rashes. She has the headaches and sinus pains in the f acial area. No nausea, vomiting, diarrhea. All other review of systems are negative. PHYSICAL EXAMINATION: GENERAL: She is a well-developed white female in no acute distress. VITAL SIGNS: Blood pressure 137/68, pulse 97, temperature 97.1. She had been put on BiPAP in the ER . HEENT: She is anicteric. Mouth was clear. NECK: No JVD. LUNGS: show increased rales or rhonchi. HEART: Regular rhythm, no murmur. ABDOMEN: Soft, benign, no masses. There was some moderate distention. EXTREMITIES: There was no peripheral edema. She had an AV fistula which has not been used in the [facility] arm with a thrill. NEUROLOGIC: No focal deficits. She had no rashes. Chest x-ray showed pulmonary edema. Hemoglobin 11.6, white count 16.4. She had a potassium of 3.9, BUN 74, creatinine 7.7, calcium 8.5. The proBNP is 14,200, which is elevated. IMPRESSION: Pulmonary edema, end-stage renal disease, noncompliance with dialysis, diabetic nephropa thy, hypertension, known peripheral vascular disease and hypothyroidism. PLAN: Will be for immediate dialysis and will give an extra dialysis tomorrow as well as she cannot tolerate excessive ultrafiltration, will follow up. Tyrese German MD cc: [id number] TT: 12/09/2016 14:12:57 Confirmation # [id number] Dictation # [id number] cn
[2016-12-09 14:46] LABS: HEMATOCRIT 38.2 % (34.0-47.0); MEAN CORPUSCULAR HEMOGLOBIN 26.7 pg (27.0-31.0); MEAN CORPUSCULAR HGB CONC 31.4 g/dL (33.0-37.0); MEAN PLATELET VOLUME 7.8 fL (7.2-11.7); RED CELL DISTRIBUTION WIDTH 16.5 % (11.5-14.5); WHITE BLOOD COUNT 23.5 K/uL (4.8-10.8)
[2016-12-09 15:15] LABS: ALB/GLOB RATIO 1.2 (1.0-2.1); BILIRUBIN,TOTAL 0.9 mg/dL (0.2-1.3); TOTAL PROTEIN 8.5 g/dL (6.3-8.3)
[2016-12-09 15:16] LABS: CALCIUM 8.7 mg/dl (8.6-10.4)
[2016-12-09] MEDS: Piperacillin/Tazobact 2.25 GM in Sodium Chloride 100 ML IVPB SCH (16:03)
[2016-12-09] MEDS: Saccharomyces Boulardi 250 mg Cap PO SCH (17:09)
[2016-12-10] MEDS: Piperacillin/Tazobact 2.25 GM in Sodium Chloride 100 ML IVPB SCH ×2 (00:07→13:33)
[2016-12-10 06:45] LABS: INR 1.1
[2016-12-10 07:03] LABS: POTASSIUM 3.5 mmol/L (3.6-5.2)
[2016-12-10 07:05] LABS: ALB/GLOB RATIO 1.1 (1.0-2.1); BILIRUBIN,TOTAL 0.8 mg/dL (0.2-1.3); TOTAL PROTEIN 6.8 g/dL (6.3-8.3)
[2016-12-10 07:06] LABS: CALCIUM 7.6 mg/dl (8.6-10.4)
--- NOTE | 2016-12-10 07:18 | CP.PCM.PN ---
<Christine Osborne - Last Filed: 12/10/16 14:56> Subjective - Date & Time of Evaluation Date of Evaluation: 12/10/16 Time of Evaluation: 06:25 - Subjective Subjective: PGY 1 Medicine Note- Dr. Rutledge's service Pt seen and examined in no acute distress. Per nursing, patient refused heparin administration, antibiotic coverage overnight and then CT imaging. On further questioning, patient explained that she did not want to become bloated or ave further exacerbation of her symptoms and thus she refused the antibiotics. It was explained that the antibiotics were to help treat any onset of infection to which patient stated that she would comply after dialysis. Patient refused CT abdomen because she said that she was scared. Patient was comforted however she stated that she did not feel comfortable going into the machine. Skylar tolerated dialysis today. She states that the abdominal pain is always there. At this time, she denies dyspnea, chest pain, palpitations, fevers, chills, nausea or vomiting. Objective - Vital Signs/Intake and Output Vital Signs (last 24 hours): Temp Pulse Resp BP Pulse Ox 99 F 88 20 132/57 L 95 12/10/16 04:00 12/10/16 04:00 12/10/16 04:00 12/10/16 04:00 12/10/16 04:00 Intake and Output: 12/10/16 12/10/16 06:59 18:59 Intake Total 370 Balance 370 - Medications Medications: Current Medications Carvedilol (Coreg) 6.25 mg PO BID [facility] Last Admin: 12/09/16 17:09 Dose: 6.25 mg Famotidine (Pepcid) 20 mg PO BID [facility] Last Admin: 12/09/16 17:09 Dose: 20 mg Heparin Sodium (Porcine) (Heparin) 5,000 units SC Q12 [facility] Last Admin: 12/09/16 22:51 Dose: Not Given Hydralazine HCl (Apresoline) 50 mg PO TID [facility] Last Admin: 12/09/16 17:09 Dose: 50 mg Piperacillin Sod/Tazobactam (Sod 2.25 gm/ Sodium Chloride) 100 mls @ 200 mls/ hr IVPB Q8H [facility] Last Admin: 12/10/16 00:07 Dose: Not Given Pneumococcal Polyvalent Vaccine (Pneumovax 23 Vaccine) 0.5 ml IM .ONCE ONE Stop: 12/11/16 10:01 Saccharomyces Boulardii (Florastor) 250 mg PO BID [facility] Last Admin: 12/09/16 17:09 Dose: 250 mg - Labs Labs: 12/09/16 14:35 12/09/16 14:35 PT 12.4 SECONDS (9.7-12.2) H 12/10/16 06:28 INR 1.1 12/10/16 06:28 APTT 28 SECONDS (21-34) 12/10/16 06:28 - Constitutional Appears: Non-toxic, No Acute Distress - Head Exam Head Exam: ATRAUMATIC, NORMAL INSPECTION, NORMOCEPHALIC - Eye Exam Eye Exam: EOMI, Normal appearance, PERRL Pupil Exam: NORMAL ACCOMODATION - ENT Exam ENT Exam: Mucous Membranes Moist - Neck Exam Neck Exam: Full ROM - Respiratory Exam Respiratory Exam: NORMAL BREATHING PATTERN. absent: Wheezes - Cardiovascular Exam Cardiovascular Exam: +S1, +S2 - GI/Abdominal Exam GI & Abdominal Exam: Soft, Normal Bowel Sounds. absent: Tenderness - Extremities Exam Extremities Exam: Full ROM, Normal Capillary Refill - Back Exam Back Exam: Full ROM - Neurological Exam Neurological Exam: Alert, Awake, CN II-XII Intact, Oriented x3 - Psychiatric Exam Psychiatric exam: Normal Affect, Normal Mood - Skin Skin Exam: Dry, Intact, Normal Color, Warm Assessment and Plan - Assessment and Plan (Free Text) Assessment: Dyspnea Assessment and Plan: Patient is currently tolerating nc. BIPAP therapy or high flow nc as needed. HD this morning. Will hold Lasix for now. Chest Xray improved. Will f/u repeat in AM Status: Acute ESRD on hemodialysis Assessment and Plan: Patient has HD on MWF Dr. German consulted- dialysis today. Will follow up recommendations in anticipation of a discharge tmrw. Status: Acute Leukocytosis Assessment and Plan: F/U Price Cultures Improved. Currently 11.2 Chest Xray: mod to severe venous congestion with bibasilar space opacities and small left pleural effusion. Improved today Status: Acute Abdominal Pain Assessment and Plan: Price Cultures- negative to date. F/U final CT abdomen and pelvis- ordered but patient refused. Zosyn renal dose Q8h with Florastor Status: Chronic HTN (hypertension) Assessment and Plan: Uncontrolled- Non compliant with meds per daughter Gave two 5mg doses of hydralazine Patient counseled on importance of taking BP meds Status: Chronic Diabetes mellitus Assessment and Plan: ISS with accuchecks ACHS Hgb A1c 7.5 Medication compliance readdressed Status: Chronic Prophylactic measure Assessment and Plan: Heparin 5000 units q12h- Patient refused yesterday and today SCDs contraindicated at this time due to B/L LE swelling Status: Acute <Clay Rutledge H - Last Filed: 12/10/16 17:53> Objective - Vital Signs/Intake and Output Vital Signs (last 24 hours): Temp Pulse Resp BP Pulse Ox 97.4 F L 77 20 102/59 L 95 12/10/16 15:24 12/10/16 15:24 12/10/16 15:24 12/10/16 15:24 12/10/16 15:24 Intake and Output: 12/10/16 12/10/16 06:59 18:59 Intake Total 370 400 Balance 370 400 - Medications Medications: Current Medications Carvedilol (Coreg) 6.25 mg PO BID [facility] Last Admin: 12/10/16 11:00 Dose: Not Given Famotidine (Pepcid) 20 mg PO BID [facility] Last Admin: 12/10/16 13:36 Dose: 20 mg Heparin Sodium (Porcine) (Heparin) 5,000 units SC Q12 [facility] Last Admin: 12/10/16 13:36 Dose: Not Given Hydralazine HCl (Apresoline) 50 mg PO TID [facility] Last Admin: 12/10/16 13:35 Dose: Not Given Piperacillin Sod/Tazobactam (Sod 2.25 gm/ Sodium Chloride) 100 mls @ 200 mls/ hr IVPB Q8H [facility] Last Admin: 12/10/16 13:33 Dose: 200 mls/hr Pneumococcal Polyvalent Vaccine (Pneumovax 23 Vaccine) 0.5 ml IM .ONCE ONE Stop: 12/11/16 10:01 Saccharomyces Boulardii (Florastor) 250 mg PO BID [facility] Last Admin: 12/10/16 13:34 Dose: 250 mg Sevelamer Carbonate (Renvela) 0.8 gm PO TIDCC [facility] - Labs Labs: 12/10/16 06:28 12/10/16 06:28 PT 12.4 SECONDS (9.7-12.2) H 12/10/16 06:28 INR 1.1 12/10/16 06:28 APTT 28 SECONDS (21-34) 12/10/16 06:28 Attending/Attestation - Attestation I have personally seen and examined this patient.: Yes I have fully participated in the care of the patient.: Yes I have reviewed all pertinent clinical information, including history, physical exam and plan: Yes Notes (Text): Medical attending: Patient was seen and examined by me, agrees the above note by medical receptionist medical assistant. Unfortunately the patient did not want to do a lot of the things we suggested including the CAT scan. I also understand that she refused some of the lab work and refused to take the IV into biotics as well. Later in the day I was notified by the medical receptionist medical assistant that the patient decided to leave [place]. We should point out that she's had 2 episodes of hemodialysis. Once was yesterday and another today when we saw the patient she was on her second hemodialysis and she reported breathing much better I hope had the patient will be willing to take her medication when she leaves from here however Thank you very much, Clay Rutledge
[2016-12-10 07:29] LABS: BASO # 0.1 K/uL (0.0-0.2); BASO % 0.5 % (0.0-2.0); EOS # 0.1 K/uL (0.0-0.7); EOS % 0.5 % (0.0-4.0); HEMATOCRIT 32.1 % (34.0-47.0); LYMPH # 1.2 K/uL (1.0-4.3); LYMPH % 11.1 % (20.0-40.0); MEAN CELL VOLUME 84.4 fL (81.0-99.0); MEAN CORPUSCULAR HEMOGLOBIN 27.5 pg (27.0-31.0); MEAN CORPUSCULAR HGB CONC 32.5 g/dL (33.0-37.0); MEAN PLATELET VOLUME 8.1 fL (7.2-11.7); MONO # 0.7 K/uL (0.0-0.8); MONO % 6.4 % (0.0-10.0); RED CELL DISTRIBUTION WIDTH 16.2 % (11.5-14.5)
[2016-12-10 07:53] LABS: WHITE BLOOD COUNT 11.2 K/uL (4.8-10.8)
[2016-12-10 08:14] LABS: RBC URINE 196 /hpf (0-3); URINE BACTERIA MANY (<OCC); URINE BILIRUBIN NEGATIVE (NEGATIVE); URINE BLOOD 1+ (NEGATIVE); URINE COLOR Yellow (YELLOW); URINE GLUCOSE (UA) 3+ mg/dL (Normal); URINE KETONE NEGATIVE (NEGATIVE); URINE LEUKOCYTE ESTERASE 2+ Leu/uL (Negative); URINE PROTEIN 2+ mg/dL (NEGATIVE); URINE UROBILINOGEN NORMAL mg/dL (0.2-1.0); WBC CLUMPS MOD /hpf; WBC URINE 18958 /hpf (0-5)
--- NOTE | 2016-12-10 09:33 | RAD ---
HISTORY: fluid overload-esrd COMPARISON: 12/09/2016 FINDINGS: LUNGS: Lines and tubes stable position. Mild venous congestion. Patchy increased markings at both lung bases with small left and trace right pleural effusion. PLEURA: As above. CARDIOVASCULAR: Cardiomegaly. Calcification at the aortic knob. OSSEOUS STRUCTURES: Degenerative changes in the spine and shoulders. VISUALIZED UPPER ABDOMEN: Normal. OTHER FINDINGS: None. IMPRESSION: Lines and tubes stable position. Mild venous congestion. Patchy increased markings at both lung bases with small left and trace right pleural effusion.
[2016-12-10 13:33] VITALS: RESP 20
[2016-12-10] MEDS: Saccharomyces Boulardi 250 mg Cap PO SCH (13:34)
--- NOTE | 2016-12-10 14:37 | CP.PCM.PN ---
Subjective - Date & Time of Evaluation Date of Evaluation: 12/10/16 Time of Evaluation: 14:35 - Subjective Subjective: seen and examined s/p hd today, 2.5L removed. Much improved breathing, wants to go home Objective - Vital Signs/Intake and Output Vital Signs (last 24 hours): Temp Pulse Resp BP Pulse Ox 98 F 79 20 113/70 100 12/10/16 13:30 12/10/16 13:30 12/10/16 13:30 12/10/16 13:30 12/10/16 13:30 Intake and Output: 12/10/16 12/10/16 06:59 18:59 Intake Total 370 Balance 370 - Medications Medications: Current Medications Carvedilol (Coreg) 6.25 mg PO BID [facility] Last Admin: 12/10/16 11:00 Dose: Not Given Famotidine (Pepcid) 20 mg PO BID [facility] Last Admin: 12/10/16 13:36 Dose: 20 mg Heparin Sodium (Porcine) (Heparin) 5,000 units SC Q12 [facility] Last Admin: 12/10/16 13:36 Dose: Not Given Hydralazine HCl (Apresoline) 50 mg PO TID [facility] Last Admin: 12/10/16 13:35 Dose: Not Given Piperacillin Sod/Tazobactam (Sod 2.25 gm/ Sodium Chloride) 100 mls @ 200 mls/ hr IVPB Q8H [facility] Last Admin: 12/10/16 13:33 Dose: 200 mls/hr Pneumococcal Polyvalent Vaccine (Pneumovax 23 Vaccine) 0.5 ml IM .ONCE ONE Stop: 12/11/16 10:01 Saccharomyces Boulardii (Florastor) 250 mg PO BID [facility] Last Admin: 12/10/16 13:34 Dose: 250 mg - Labs Labs: 12/10/16 06:28 12/10/16 06:28 PT 12.4 SECONDS (9.7-12.2) H 12/10/16 06:28 INR 1.1 12/10/16 06:28 APTT 28 SECONDS (21-34) 12/10/16 06:28 - Constitutional Appears: Non-toxic, No Acute Distress - Head Exam Head Exam: NORMAL INSPECTION - Eye Exam Eye Exam: Normal appearance - ENT Exam ENT Exam: Mucous Membranes Moist, Normal Exam - Neck Exam Neck Exam: Normal Inspection Additional comments: rt ij permcath - Respiratory Exam Respiratory Exam: Decreased Breath Sounds, NORMAL BREATHING PATTERN - GI/Abdominal Exam GI & Abdominal Exam: Distended, Soft, Normal Bowel Sounds - Extremities Exam Extremities Exam: Normal Inspection Assessment and Plan (1) Acute pulmonary edema Status: Acute (2) ESRD on hemodialysis Status: Acute (3) Anemia of chronic disease Status: Acute (4) CHF exacerbation Status: Acute - Assessment and Plan (Free Text) Assessment: hd tomorrow per regular schedule. leukocytosis noted, pending urine culture. blood cx neg add binder
[2016-12-10 15:28] VITALS: BP 102/59; PULSE 77; TEMP 97.4; O2SAT 95
[2016-12-10] MEDS ORDERED: Sevelamer Carb 0.8 gm/Packet PO SCH (17:00)
--- NOTE | 2016-12-10 19:03 | CP.PCM.DIS ---
<IndiaAdrianaravinder - Last Filed: 12/10/16 19:28> Provider - Provider Date of Admission: 12/09/16 06:23 Attending physician: Nagi Mann MD Time Spent in preparation of Discharge (in minutes): 37 Diagnosis - Discharge Diagnosis (1) Dyspnea Status: Resolved (2) Leukocytosis Status: Acute (3) Abdominal pain Status: Chronic (4) ESRD on hemodialysis Status: Chronic (5) Diabetes mellitus Status: Chronic (6) HTN (hypertension) Status: Chronic Hospital Course - Lab Results Lab Results: Micro Results 12/10/16 08:00 Sputum Gram Stain - Final Most Recent Lab Values WBC 11.2 K/uL (4.8-10.8) H D 12/10/16 06:28 RBC 3.80 Mil/uL (3.80-5.20) 12/10/16 06:28 Hgb 10.4 g/dL (11.0-16.0) L 12/10/16 06:28 Hct 32.1 % (34.0-47.0) L 12/10/16 06:28 MCV 84.4 fL (81.0-99.0) 12/10/16 06:28 MCH 27.5 pg (27.0-31.0) 12/10/16 06:28 MCHC 32.5 g/dL (33.0-37.0) L 12/10/16 06:28 RDW 16.2 % (11.5-14.5) H 12/10/16 06:28 Plt Count 278 K/uL (130-400) 12/10/16 06:28 MPV 8.1 fL (7.2-11.7) 12/10/16 06:28 Neut % (Auto) 81.5 % (50.0-75.0) H 12/10/16 06:28 Lymph % (Auto) 11.1 % (20.0-40.0) L 12/10/16 06:28 Polk % (Auto) 6.4 % (0.0-10.0) 12/10/16 06:28 Eos % (Auto) 0.5 % (0.0-4.0) 12/10/16 06:28 Baso % (Auto) 0.5 % (0.0-2.0) 12/10/16 06:28 Neut # 9.1 K/uL (1.8-7.0) H 12/10/16 06:28 Lymph # 1.2 K/uL (1.0-4.3) 12/10/16 06:28 Polk # 0.7 K/uL (0.0-0.8) 12/10/16 06:28 Eos # 0.1 K/uL (0.0-0.7) 12/10/16 06:28 Baso # 0.1 K/uL (0.0-0.2) 12/10/16 06:28 PT 12.4 SECONDS (9.7-12.2) H 12/10/16 06:28 INR 1.1 12/10/16 06:28 APTT 28 SECONDS (21-34) 12/10/16 06:28 pO2 39 mm/Hg (30-55) 12/09/16 05:26 VBG pH 7.14 (7.32-7.43) L* 12/09/16 05:26 VBG pCO2 66 mmHg (40-60) H* 12/09/16 05:26 VBG HCO3 17.8 mmol/L 12/09/16 05:26 VBG Total CO2 24.5 mmol/L (22-28) 12/09/16 05:26 VBG O2 Sat (Calc) 59.9 % (40-65) 12/09/16 05:26 VBG Base Excess -7.6 mmol/L (0.0-2.0) L 12/09/16 05:26 VBG Potassium 3.4 mmol/L (3.6-5.2) L 12/09/16 05:26 Sodium 137.0 mmol/l (132-148) 12/09/16 05:26 Chloride 104.0 mmol/L (98-107) 12/09/16 05:26 Glucose 320 mg/dl (65-105) H 12/09/16 05:26 Lactate 2.7 mmol/L (0.7-2.1) H 12/09/16 05:26 Crit Value Called To Dr. rodriguez 12/09/16 05:26 Crit Value Called By Maru valdez rt 12/09/16 05:26 Crit Value Read Back Y 12/09/16 05:26 Blood Gas Notified Time 532 12/09/16 05:26 Sodium 133 mmol/L (132-148) 12/10/16 06:28 Potassium 3.5 mmol/L (3.6-5.2) L 12/10/16 06:28 Chloride 92 mmol/L (98-107) L 12/10/16 06:28 Carbon Dioxide 26 mmol/L (22-30) 12/10/16 06:28 Anion Gap 19 (10-20) 12/10/16 06:28 BUN 55 mg/dL (7-17) H 12/10/16 06:28 Creatinine 5.9 MG/DL (0.7-1.2) H 12/10/16 06:28 Est GFR ( Amer) 9 12/10/16 06:28 Est GFR (Non-Af Amer) 7 12/10/16 06:28 POC Glucose (mg/dL) 224 mg/dL (65-110) H 12/10/16 16:19 Random Glucose 161 mg/dL (65-105) H 12/10/16 06:28 Hemoglobin A1c 7.5 % (4.2-6.5) H 12/10/16 06:28 Calcium 7.6 mg/dl (8.6-10.4) L 12/10/16 06:28 Phosphorus 6.0 mg/dL (2.5-4.5) H 12/10/16 06:28 Magnesium 2.0 mg/dL (1.6-2.3) 12/10/16 06:28 Total Bilirubin 0.8 mg/dL (0.2-1.3) 12/10/16 06:28 AST 20 U/L (14-36) 12/10/16 06:28 ALT 15 U/L (9-52) 12/10/16 06:28 Alkaline Phosphatase 71 U/L (38-126) 12/10/16 06:28 Troponin I < 0.0120 ng/mL (0.00-0.120) 12/09/16 05:32 NT-Pro-B Natriuret Pep 00262 pg/mL (0-900) H 12/09/16 05:32 Total Protein 6.8 g/dL (6.3-8.3) 12/10/16 06:28 Albumin 3.6 g/dL (3.5-5.0) 12/10/16 06:28 Globulin 3.2 gm/dL (2.2-3.9) 12/10/16 06:28 Albumin/Globulin Ratio 1.1 (1.0-2.1) 12/10/16 06:28 Venous Blood Potassium 3.4 mmol/L (3.6-5.2) L 12/09/16 05:26 Urine Color Yellow (YELLOW) 12/10/16 07:40 Urine Clarity Turbid (Clear) 12/10/16 07:40 Urine pH 5.0 (5.0-8.0) 12/10/16 07:40 Ur Specific Hubbard 1.016 (1.003-1.030) 12/10/16 07:40 Urine Protein 2+ mg/dL (NEGATIVE) H 12/10/16 07:40 Urine Glucose (UA) 3+ mg/dL (Normal) H 12/10/16 07:40 Urine Ketones Negative mg/dL (NEGATIVE) 12/10/16 07:40 Urine Blood 1+ (NEGATIVE) H 12/10/16 07:40 Urine Nitrate Negative (NEGATIVE) 12/10/16 07:40 Urine Bilirubin Negative (NEGATIVE) 12/10/16 07:40 Urine Urobilinogen Normal mg/dL (0.2-1.0) 12/10/16 07:40 Ur Leukocyte Esterase 2+ Jl/uL (Negative) H 12/10/16 07:40 Urine WBC (Auto) 47179 /hpf (0-5) H 12/10/16 07:40 Urine RBC (Auto) 196 /hpf (0-3) H 12/10/16 07:40 Urine WBC Clumps (Auto) Mod /hpf (NONE) H 12/10/16 07:40 Ur Squamous Epith Cells 20 /hpf (0-5) H 12/10/16 07:40 Urine Bacteria Many (<OCC) H 12/10/16 07:40 - Hospital Course Hospital Course: On admission: Patient is a 66 year old female with past medical history of ESRD on HD MWF, CHF, anemia, HTN, and DM presenting to the ED with SOB. Patient states the SOB began 9-10pm last night and is similar to the symptoms which led to her prior admission at [facility] on 11/25/16. Patient describes the SOB as tightness due to fluid in her mid sternum region. She admits to associated diaphoresis, dizziness, and nausea, stating she vomited one time last night. Patient also complains of cough producing thick, white frothy phlegm that has been persistent since her last hospital admission. She additionally complains of right upper quadrant pain that has been persistent over the past 2 years but has increased in intensity since last night along with an episode of non bloody diarrhea. Patient states she has allergies and side effects from all of her medications/medication fillers, and admits to not taking any of her medications over the past 2 weeks since her last admission. She denies palpitations, chest pain, constipation, dysuria, lower extremity swelling, numbness, and tingling. Hospital Course: Patient acutely short of breath requiring BiPAP therapy. It was at this time that daughter was bedside and informed medical team that patient is generally noncompliant with medication therapy for a number of reasons. It was advised that patient would require antibiotics for leukocytosis however it took great convincing before patient complied. Patient received HD x2 days. Over the course of time here, patient refused anticoagulation for DVT prophylaxis, refused getting a CT of the abdomen, and refused receiving antibiotics for suspected UTI. Patient as well as daughter needed to be counseled on the importance of medications. Patient due to be discharged tomorrow but made a decision to leave before urine culture studies were finalized. When antibiotics were suggested and offered to patient, patient declined because she felt that it would result in abdominal swelling. I assured her otherwise, however she stated that she was not interested and left against medical advice. This is abrief summary of vents. For aoplete course, refer ro medical record. Discharge Exam - Head Exam Head Exam: NORMAL INSPECTION - Eye Exam Eye Exam: EOMI, Normal appearance Pupil Exam: NORMAL ACCOMODATION, PERRL - ENT Exam ENT Exam: Mucous Membranes Moist - Neck Exam Neck exam: Full Rom - Respiratory Exam Respiratory Exam: NORMAL BREATHING PATTERN - Cardiovascular Exam Cardiovascular Exam: +S1, +S2 - GI/Abdominal Exam GI & Abdominal Exam: Normal Bowel Sounds, Tenderness (RUQ dffusely) - Extremities Exam Extremities exam: full ROM, pedal pulses present - Back Exam Back exam: FULL ROM - Neurological Exam Neurological exam: CN II-XII Intact, Oriented x3 - Psychiatric Exam Psychiatric exam: Anxious, Flat Affect - Skin Skin Exam: Dry, Normal Color, Warm Discharge Plan - Follow Up Plan Condition: FAIR Disposition: AGAINST MEDICAL ADVICE Referrals: Eduardo Lopez MD [Family Provider] - Clinical Quality Measures - CQM - Heart Failure Ejection Fraction: 40 % or Greater <Clay Rutledge - Last Filed: 12/11/16 07:29> Provider - Provider Date of Admission: 12/09/16 06:23 Attending physician: Nagi Mann MD Hospital Course - Lab Results Lab Results: Micro Results 12/10/16 08:00 Sputum Gram Stain - Final Most Recent Lab Values WBC 11.2 K/uL (4.8-10.8) H D 12/10/16 06:28 RBC 3.80 Mil/uL (3.80-5.20) 12/10/16 06:28 Hgb 10.4 g/dL (11.0-16.0) L 12/10/16 06:28 Hct 32.1 % (34.0-47.0) L 12/10/16 06:28 MCV 84.4 fL (81.0-99.0) 12/10/16 06:28 MCH 27.5 pg (27.0-31.0) 12/10/16 06:28 MCHC 32.5 g/dL (33.0-37.0) L 12/10/16 06:28 RDW 16.2 % (11.5-14.5) H 12/10/16 06:28 Plt Count 278 K/uL (130-400) 12/10/16 06:28 MPV 8.1 fL (7.2-11.7) 12/10/16 06:28 Neut % (Auto) 81.5 % (50.0-75.0) H 12/10/16 06:28 Lymph % (Auto) 11.1 % (20.0-40.0) L 12/10/16 06:28 Polk % (Auto) 6.4 % (0.0-10.0) 12/10/16 06:28 Eos % (Auto) 0.5 % (0.0-4.0) 12/10/16 06:28 Baso % (Auto) 0.5 % (0.0-2.0) 12/10/16 06:28 Neut # 9.1 K/uL (1.8-7.0) H 12/10/16 06:28 Lymph # 1.2 K/uL (1.0-4.3) 12/10/16 06:28 Polk # 0.7 K/uL (0.0-0.8) 12/10/16 06:28 Eos # 0.1 K/uL (0.0-0.7) 12/10/16 06:28 Baso # 0.1 K/uL (0.0-0.2) 12/10/16 06:28 PT 12.4 SECONDS (9.7-12.2) H 12/10/16 06:28 INR 1.1 12/10/16 06:28 APTT 28 SECONDS (21-34) 12/10/16 06:28 pO2 39 mm/Hg (30-55) 12/09/16 05:26 VBG pH 7.14 (7.32-7.43) L* 12/09/16 05:26 VBG pCO2 66 mmHg (40-60) H* 12/09/16 05:26 VBG HCO3 17.8 mmol/L 12/09/16 05:26 VBG Total CO2 24.5 mmol/L (22-28) 12/09/16 05:26 VBG O2 Sat (Calc) 59.9 % (40-65) 12/09/16 05:26 VBG Base Excess -7.6 mmol/L (0.0-2.0) L 12/09/16 05:26 VBG Potassium 3.4 mmol/L (3.6-5.2) L 12/09/16 05:26 Sodium 137.0 mmol/l (132-148) 12/09/16 05:26 Chloride 104.0 mmol/L (98-107) 12/09/16 05:26 Glucose 320 mg/dl (65-105) H 12/09/16 05:26 Lactate 2.7 mmol/L (0.7-2.1) H 12/09/16 05:26 Crit Value Called To Dr. rodriguez 12/09/16 05:26 Crit Value Called By Maru valdez rt 12/09/16 05:26 Crit Value Read Back Y 12/09/16 05:26 Blood Gas Notified Time 532 12/09/16 05:26 Sodium 133 mmol/L (132-148) 12/10/16 06:28 Potassium 3.5 mmol/L (3.6-5.2) L 12/10/16 06:28 Chloride 92 mmol/L (98-107) L 12/10/16 06:28 Carbon Dioxide 26 mmol/L (22-30) 12/10/16 06:28 Anion Gap 19 (10-20) 12/10/16 06:28 BUN 55 mg/dL (7-17) H 12/10/16 06:28 Creatinine 5.9 MG/DL (0.7-1.2) H 12/10/16 06:28 Est GFR ( Amer) 9 12/10/16 06:28 Est GFR (Non-Af Amer) 7 12/10/16 06:28 POC Glucose (mg/dL) 224 mg/dL (65-110) H 12/10/16 16:19 Random Glucose 161 mg/dL (65-105) H 12/10/16 06:28 Hemoglobin A1c 7.5 % (4.2-6.5) H 12/10/16 06:28 Calcium 7.6 mg/dl (8.6-10.4) L 12/10/16 06:28 Phosphorus 6.0 mg/dL (2.5-4.5) H 12/10/16 06:28 Magnesium 2.0 mg/dL (1.6-2.3) 12/10/16 06:28 Total Bilirubin 0.8 mg/dL (0.2-1.3) 12/10/16 06:28 AST 20 U/L (14-36) 12/10/16 06:28 ALT 15 U/L (9-52) 12/10/16 06:28 Alkaline Phosphatase 71 U/L (38-126) 12/10/16 06:28 Troponin I < 0.0120 ng/mL (0.00-0.120) 12/09/16 05:32 NT-Pro-B Natriuret Pep 34754 pg/mL (0-900) H 12/09/16 05:32 Total Protein 6.8 g/dL (6.3-8.3) 12/10/16 06:28 Albumin 3.6 g/dL (3.5-5.0) 12/10/16 06:28 Globulin 3.2 gm/dL (2.2-3.9) 12/10/16 06:28 Albumin/Globulin Ratio 1.1 (1.0-2.1) 12/10/16 06:28 Venous Blood Potassium 3.4 mmol/L (3.6-5.2) L 12/09/16 05:26 Urine Color Yellow (YELLOW) 12/10/16 07:40 Urine Clarity Turbid (Clear) 12/10/16 07:40 Urine pH 5.0 (5.0-8.0) 12/10/16 07:40 Ur Specific Hubbard 1.016 (1.003-1.030) 12/10/16 07:40 Urine Protein 2+ mg/dL (NEGATIVE) H 12/10/16 07:40 Urine Glucose (UA) 3+ mg/dL (Normal) H 12/10/16 07:40 Urine Ketones Negative mg/dL (NEGATIVE) 12/10/16 07:40 Urine Blood 1+ (NEGATIVE) H 12/10/16 07:40 Urine Nitrate Negative (NEGATIVE) 12/10/16 07:40 Urine Bilirubin Negative (NEGATIVE) 12/10/16 07:40 Urine Urobilinogen Normal mg/dL (0.2-1.0) 12/10/16 07:40 Ur Leukocyte Esterase 2+ Jl/uL (Negative) H 12/10/16 07:40 Urine WBC (Auto) 15682 /hpf (0-5) H 12/10/16 07:40 Urine RBC (Auto) 196 /hpf (0-3) H 12/10/16 07:40 Urine WBC Clumps (Auto) Mod /hpf (NONE) H 12/10/16 07:40 Ur Squamous Epith Cells 20 /hpf (0-5) H 12/10/16 07:40 Urine Bacteria Many (<OCC) H 12/10/16 07:40 Attending/Attestation - Attestation I have personally seen and examined this patient.: Yes I have fully participated in the care of the patient.: Yes I have reviewed all pertinent clinical information, including history, physical exam and plan: Yes Notes (Text): 12/11/16 07:24 Medical Attending: Patient was seen and examined by me. Reviewed the above by the resident. Patient has decided she wanted to go AMA
[2016-12-11] MEDS ORDERED: Pneumococcal 23-Valent Vaccine IM ONE (10:00)
--- NOTE | 2016-12-27 11:55 | CARD ---
APPROVED REPORT EKG Measurement Heart [id number] <Conclusion> Normal sinus rhythm Possible Left atrial enlargement Left axis deviation Left bundle branch block Abnormal ECG
== END 2016-12-10 16:45 | disposition left against medical advice (07) ==
LOC: SUPCPDRO 04:46 → C.ER 04:46 → C.9E 06:23 → C.6T 16:18
PROVIDERS: ADMIT Family Medicine; ATTEND Family Medicine
DX: I13.2 Hypertensive heart and chronic kidney disease with heart failure and with stage 5 chronic kidney disease, or end stage renal disease (principal); D63.8 Anemia in other chronic diseases classified elsewhere; E11.22 Type 2 diabetes mellitus with diabetic chronic kidney disease; E78.00 Pure hypercholesterolemia, unspecified; I50.9 Heart failure, unspecified; I73.9 Peripheral vascular disease, unspecified; G47.30 Sleep apnea, unspecified; N18.6 End stage renal disease; Z87.891 Personal history of nicotine dependence; Z99.2 Dependence on renal dialysis
CPT/HCPCS: 36415; 71010; 80053; 81001; 82803; 82948; 83036; 83735; 83880; 84100; 84484; 85025; 85027; 85610; 85730; 87040; 87070; 87086; 94660; 96374; 97116; 97162; 99285; G0257; G0378; G8978; G8979; J0360; J1940; J2543; J7050

== ENCOUNTER 2017-01-06 02:10 | Emergency (ER) | payer MEDICARE, OTHER ==
[2017-01-06 02:10] VITALS: BMI 30.9
[2017-01-06 02:29] VITALS: O2SAT 96
--- NOTE | 2017-01-06 02:35 | C.PDOC ---
History Of Present Illness Pt states she ate some onions and and got"very gassy" with some abdominal pain. No f/c/n/v. Tolerating po. Took some pepto bismol and drank coke , but still feels bloated. pt is a M-W-F hd. Speaking in complete sentences Time Seen by Provider: 01/06/17 02:35 Chief Complaint (Nursing): Abdominal Pain History Per: Patient History/Exam Limitations: no limitations Onset/Duration Of Symptoms: Hrs Current Symptoms Are (Timing): Still Present Context: Food Severity: Moderate Pain Scale Rating Of: 4 Location Of Pain/Discomfort: Epigastric Radiation Of Pain To:: None Quality Of Discomfort: Dull, Aching Associated Symptoms: Nausea. denies: Fever, Chills Exacerbating Factors: Food Alleviating Factors: None Last Bowel Movement: Yesterday Additional History Per: Family Abnormal Vaginal Bleeding: No Past Medical History Reviewed: Historical Data, Nursing Documentation, Vital Signs Vital Signs: Last Vital Signs Temp 97.8 F 01/06/17 04:18 Pulse 96 H 01/06/17 04:18 Resp 20 01/06/17 04:18 BP 180/98 H 01/06/17 04:18 Pulse Ox 96 01/06/17 04:18 - Medical History PMH: Anemia, Anxiety, Back Problems, CHF, Depression, Diabetes, Gall Bladder Disease, HTN, Hypercholesterolemia, Hypothyroidism, Peripheral Edema, Pneumonia , End Stage Renal Disease, Chronic Kidney Disease (Dialysis M_W_F), Sleep Apnea , TIA (right sided weakness) Surgical History: Cholecystectomy, Endoscopy, Tonsillectomy - [facility] Procedures ASSISTANCE WITH RESPIRATORY VENTILATION, <24 HRS, CPAP (04/29/16) COLONOSCOPY (02/01/15) EXCISION OF LARGE INTESTINE, ENDO, DIAGN (04/29/16) FLUOROSCOPY OF SUPERIOR VENA CAVA, GUIDANCE (05/07/16) INSERTION OF ENDOTRACHEAL AIRWAY INTO TRACHEA, VIA OPENING (05/07/16) INSERTION OF INFUSION DEV INTO SUP VENA CAVA, PERC APPROACH (09/15/16) INTRAOPER CHOLANGIOGRAM (12/05/14) LAPAROSCOPIC CHOLECYSTECTOMY (12/05/14) LAPAROSCOPIC LIVER BIOPSY (12/05/14) PERFORMANCE OF URINARY FILTRATION, MULTIPLE (09/15/16) REMOVAL OF INFUSION DEVICE FROM UPPER VEIN, CONTACT CENTRE SUPERVISOR APPROACH (08/14/16) RESPIRATORY VENTILATION, 24-96 CONSECUTIVE HOURS (05/07/16) TRANSFUSE NONAUT RED BLOOD CELLS IN PERIPH VEIN, PERC (04/29/16) Family History: States: Hypertension (mother and father) - Social History Hx Tobacco Use: No Hx Alcohol Use: No Hx Substance Use: No - Immunization History Hx Tetanus Toxoid Vaccination: No Hx Influenza Vaccination: No Hx Pneumococcal Vaccination: No Review Of Systems Constitutional: Negative for: Fever, Chills Eyes: Negative for: Redness ENT: Negative for: Throat Pain Cardiovascular: Negative for: Chest Pain Respiratory: Negative for: Shortness of Breath Gastrointestinal: Positive for: Nausea, Abdominal Pain. Negative for: Vomiting Genitourinary: Negative for: Dysuria Musculoskeletal: Negative for: Back Pain Skin: Negative for: Rash, Lesions, Jaundice, Bruising Neurological: Negative for: Weakness Psych: Positive for: Anxiety Physical Exam - Physical Exam Appears: Non-toxic Skin: Warm, Dry Head: Atraumatic Eye(s): bilateral: Normal Inspection Oral Mucosa: Moist Neck: Supple Chest: Symmetrical Cardiovascular: Rhythm Regular Respiratory: Rales (bases), No Rhonchi Gastrointestinal/Abdominal: Bowel Sounds (tympanic to percussion), Soft, Tenderness (mild) Back: Normal Inspection Extremity: Normal ROM, No Pedal Edema, Other (left arm graft with good thrill and bruit) Extremity: Bilateral: Atraumatic Neurological/Psych: Oriented x3, Normal Speech, Normal Cognition Gait: Steady ED Course And Treatment - Laboratory Results Result Diagrams: 01/06/17 03:40 01/06/17 03:40 ECG: Interpreted By Me, Viewed By Me ECG Rhythm: Sinus Rhythm (100), L BBB O2 Sat by Pulse Oximetry: 96 Pulse Ox Interpretation: Normal - Radiology CXR: Interpreted by Me, Viewed By Me CXR Interpretation: Yes: Other (mild chf). No: Infiltrates, Fracture, Pnemothorax Progress Note: pt feels much better and wants to go home. she is scheduled for HD this am Reevaluation Time: 04:39 Reassessment Condition: Improved Medical Decision Making Medical Decision Making: Upon provider reevaluation patient is feeling better, is medically stable, and requires no further treatment in the ED at this time. Patient will be discharged home with Rx for protonix . Counseling was provided and all questions were answered regarding diagnosis and need for follow up with dr dietz dn dr hartman. There is agreement to discharge plan. Return if symptoms persist or worsen. Disposition Counseled Patient/Family Regarding: Studies Performed, Diagnosis, Need For Followup, Rx Given - Disposition Referrals: Sher Titus MD [Staff Provider] - Disposition: HOME/ ROUTINE Disposition Time: 02:35 Condition: FAIR Prescriptions: Pantoprazole Sodium [Protonix] 20 mg PO DAILY #15 ect Instructions: Gastroesophageal Reflux Disease (ED), Gastritis (DC), End Stage Kidney Disease (ED) - Clinical Impression Clinical Impression: GERD (gastroesophageal reflux disease), ESRD (end stage renal disease) on dialysis
[2017-01-06 03:44] LABS: BASO # 0.1 K/uL (0.0-0.2); BASO % 0.8 % (0.0-2.0); EOS # 0.4 K/uL (0.0-0.7); EOS % 3.7 % (0.0-4.0); HEMATOCRIT 30.6 % (34.0-47.0); LYMPH # 1.6 K/uL (1.0-4.3); MEAN CORPUSCULAR HEMOGLOBIN 26.1 pg (27.0-31.0); MEAN CORPUSCULAR HGB CONC 31.1 g/dL (33.0-37.0); MEAN PLATELET VOLUME 8.1 fL (7.2-11.7); MONO # 0.5 K/uL (0.0-0.8); MONO % 4.7 % (0.0-10.0); RED CELL DISTRIBUTION WIDTH 17.4 % (11.5-14.5); WHITE BLOOD COUNT 11.3 K/uL (4.8-10.8)
[2017-01-06 03:52] LABS: POTASSIUM 4.8 mmol/L (3.6-5.2)
[2017-01-06 03:54] LABS: ALB/GLOB RATIO 1.5 (1.0-2.1); BILIRUBIN,TOTAL 0.6 mg/dL (0.2-1.3)
[2017-01-06 03:55] LABS: CALCIUM 7.9 mg/dl (8.6-10.4)
[2017-01-06 04:20] VITALS: BP 180/98; PULSE 96; RESP 20; TEMP 97.8
--- NOTE | 2017-01-06 11:03 | RAD ---
PROCEDURE: CHEST RADIOGRAPH, 1 VIEW portable study 03:10. HISTORY: Abdominal pain. COMPARISON: 12/10/2016. FINDINGS: LUNGS: Focal infiltrate left upper lobe. PLEURA: No pneumothorax or pleural fluid seen. CARDIOVASCULAR: Pulmonary vascular congestion represents a new/ acute findings. OSSEOUS STRUCTURES: No significant abnormalities. VISUALIZED UPPER ABDOMEN: Normal. OTHER FINDINGS: Removal of support apparatus since the prior study: Dialysis catheter. IMPRESSION: Pulmonary vascular congestion, new finding compared to the prior study. Superimposed left upper lobe infiltrate with air bronchograms.
--- NOTE | 2017-01-08 02:01 | CARD ---
APPROVED REPORT EKG Measurement Heart [id number] <Conclusion> Normal sinus rhythm Left axis deviation Left bundle branch block Abnormal ECG
== END 2017-01-06 05:00 | disposition home or self-care (01) ==
LOC: C.ER 02:10
DX: K21.9 Gastro-esophageal reflux disease without esophagitis (principal); I12.0 Hypertensive chronic kidney disease with stage 5 chronic kidney disease or end stage renal disease; N18.6 End stage renal disease
CPT/HCPCS: 71010; 80053; 82948; 83690; 85025; 85610; 85730; 93005; 96374; 96375; 99284; J2405

== ENCOUNTER 2017-01-17 01:19 | Observation (INO) | payer MEDICARE, OTHER ==
[2017-01-17 01:20] VITALS: BMI 30.9
--- NOTE | 2017-01-17 01:35 | C.PDOC ---
History Of Present Illness Patient presents to the ER with a complaint of SOB worsening since yesterday. Patient reports has dialysis on Mondays, Wednesdays and Fridays. She is currently speaking in 3-4 word sentences. Patient denies chest pain, palpitations, fever or chills. Time Seen by Provider: 01/17/17 01:35 Chief Complaint (Nursing): Shortness Of Breath History Per: Patient History/Exam Limitations: no limitations Onset/Duration Of Symptoms: Days (Yesterday) Current Symptoms Are (Timing): Still Present Initiating Event: Other (Not known) Current Respiratory Medications: None Severity: Mild Pain Scale Rating Of: 4 Associated Symptoms: denies: Fever, Chills, Chest Pain, Other (Papitations) Recent travel outside of the [place]: No Past Medical History Reviewed: Historical Data, Nursing Documentation, Vital Signs Vital Signs: Last Vital Signs Temp 97.9 F 01/17/17 02:48 Pulse 90 01/17/17 02:48 Resp 21 01/17/17 02:48 BP 181/87 H 01/17/17 02:48 Pulse Ox 83 L 01/17/17 03:10 - Medical History PMH: Anemia, Anxiety, Back Problems, CHF, Depression, Diabetes, Gall Bladder Disease, HTN, Hypercholesterolemia, Hypothyroidism, Peripheral Edema, Pneumonia , End Stage Renal Disease, Chronic Kidney Disease (Dialysis M_W_F), Sleep Apnea , TIA (right sided weakness) Surgical History: Cholecystectomy, Endoscopy, Tonsillectomy - [facility] Procedures ASSISTANCE WITH RESPIRATORY VENTILATION, <24 HRS, CPAP (04/29/16) COLONOSCOPY (02/01/15) EXCISION OF LARGE INTESTINE, ENDO, DIAGN (04/29/16) FLUOROSCOPY OF SUPERIOR VENA CAVA, GUIDANCE (05/07/16) INSERTION OF ENDOTRACHEAL AIRWAY INTO TRACHEA, VIA OPENING (05/07/16) INSERTION OF INFUSION DEV INTO SUP VENA CAVA, PERC APPROACH (09/15/16) INTRAOPER CHOLANGIOGRAM (12/05/14) LAPAROSCOPIC CHOLECYSTECTOMY (12/05/14) LAPAROSCOPIC LIVER BIOPSY (12/05/14) PERFORMANCE OF URINARY FILTRATION, MULTIPLE (09/15/16) REMOVAL OF INFUSION DEVICE FROM UPPER VEIN, COUNTERINTELLIGENCE SPECIALIST APPROACH (08/14/16) RESPIRATORY VENTILATION, 24-96 CONSECUTIVE HOURS (05/07/16) TRANSFUSE NONAUT RED BLOOD CELLS IN PERIPH VEIN, PERC (04/29/16) Family History: States: Hypertension (mother and father) - Social History Hx Tobacco Use: No Hx Alcohol Use: No Hx Substance Use: No - Immunization History Hx Tetanus Toxoid Vaccination: No Hx Influenza Vaccination: No Hx Pneumococcal Vaccination: No Review Of Systems Constitutional: Negative for: Fever, Chills Eyes: Negative for: Vision Change ENT: Negative for: Throat Pain Cardiovascular: Negative for: Chest Pain, Palpitations Respiratory: Positive for: Shortness of Breath Gastrointestinal: Negative for: Nausea, Vomiting Genitourinary: Negative for: Dysuria, Hematuria Musculoskeletal: Negative for: Back Pain Skin: Negative for: Rash, Jaundice Neurological: Negative for: Weakness, Numbness Psych: Negative for: Anxiety Physical Exam - Physical Exam Appears: Non-toxic Skin: Warm, Dry Head: Normacephalic Eye(s): bilateral: Normal Inspection Oral Mucosa: Moist Neck: Supple Chest: Symmetrical, No Tenderness Cardiovascular: Rhythm Regular, No Murmur Respiratory: Rales (Diffuse), No Rhonchi, No Wheezing Gastrointestinal/Abdominal: Soft, No Tenderness Back: Normal Inspection Extremity: Pedal Edema (Trace), Other (Left gore rock graft w/ good thrill and bruit) Extremity: Bilateral: Atraumatic Neurological/Psych: Oriented x3, Normal Speech, Other (No focal deficits) Gait: Steady ED Course And Treatment - Laboratory Results Result Diagrams: 01/17/17 01:57 01/17/17 01:57 ECG: Interpreted By Me, Viewed By Me ECG Rhythm: Sinus Rhythm (105), L BBB, Nonspecific Changes O2 Sat by Pulse Oximetry: 83 Pulse Ox Interpretation: Abnormal - Radiology CXR: Interpreted by Me, Viewed By Me CXR Interpretation: Yes: Other (acute pulm edema. worse thean 01/06/17). No: COPD, Fracture, Cardiomegaly Progress Note: EKG and CXR ordered. Lasix administered. spoke with dr muller( [facility]) will Dialyze in am Critical Care Time - Critical Care Note Total Time (in mins): 30 Documented critical care: time excludes all time spent performing seperately billable procedures. Disposition Discussed With : Sher Titus Comment: acceptd the pt on his service and took over the care at 3 AM Doctor Will See Patient In The: Hospital Counseled Patient/Family Regarding: Studies Performed, Diagnosis - Disposition Disposition: HOSPITALIZED Disposition Time: 01:35 Condition: FAIR - POA Present On Arrival: Poor Glycemic Control - Clinical Impression Clinical Impression: Diabetes mellitus, ESRD on hemodialysis, CHF exacerbation - Scribe Statement The provider has reviewed the documentation as recorded by the Scribe Escobar Dubon All medical record entries made by the Scribe were at my direction and personally dictated by me. I have reviewed the chart and agree that the record accurately reflects my personal performance of the history, physical exam, medical decision making, and the department course for this patient. I have also personally directed, reviewed, and agree with the discharge instructions and disposition. Decision To Admit - Pt Status Changed To: Hospital Disposition Of: Observation - . Bed Request Type: Telemetry Admitting Physician: Sher Titus Patient Diagnosis: Diabetes mellitus, ESRD on hemodialysis, CHF exacerbation
[2017-01-17 01:57] LABS: ABG ALLEN TEST POS; DRAW SITE RR
[2017-01-17 01:59] LABS: BASO # 0.1 K/uL (0.0-0.2); BASO % 1.4 % (0.0-2.0); EOS # 0.4 K/uL (0.0-0.7); EOS % 4.3 % (0.0-4.0); HEMATOCRIT 30.2 % (34.0-47.0); LYMPH # 2.3 K/uL (1.0-4.3); LYMPH % 23.4 % (20.0-40.0); MEAN CELL VOLUME 80.8 fL (81.0-99.0); MEAN CORPUSCULAR HEMOGLOBIN 26.2 pg (27.0-31.0); MEAN CORPUSCULAR HGB CONC 32.4 g/dL (33.0-37.0); MONO # 0.7 K/uL (0.0-0.8); RED CELL DISTRIBUTION WIDTH 17.5 % (11.5-14.5); WHITE BLOOD COUNT 9.8 K/uL (4.8-10.8)
[2017-01-17 02:13] LABS: POTASSIUM 4.1 mmol/L (3.6-5.2)
[2017-01-17 02:15] LABS: BILIRUBIN,TOTAL 0.6 mg/dL (0.2-1.3)
[2017-01-17 02:16] LABS: ALB/GLOB RATIO 1.6 (1.0-2.1); CALCIUM 7.8 mg/dl (8.6-10.4)
[2017-01-17 02:28] LABS: TROPONIN I 0.015 ng/mL (0.00-0.120)
[2017-01-17] MEDS ORDERED: Pantoprazole 20 mg EC Tab PO SCH (10:00)
--- NOTE | 2017-01-17 10:35 | RAD ---
PROCEDURE: CHEST RADIOGRAPH, 1 VIEW HISTORY: Shortness of breath COMPARISON: 01/06/2017 FINDINGS: LUNGS: There is worsening pulmonary venous congestion. PLEURA: No pneumothorax or pleural fluid seen. CARDIOVASCULAR: The heart is normal in size. OSSEOUS STRUCTURES: No significant abnormalities. VISUALIZED UPPER ABDOMEN: Normal. OTHER FINDINGS: None. IMPRESSION: Worsening pulmonary venous congestion.
[2017-01-17 13:11] VITALS: RESP 20; TEMP 98
--- NOTE | 2017-01-17 14:24 | CP.PCM.CON ---
History of Present Illness - History of Present Illness History of Present Illness: Patient presents to the ER with a complaint of SOB worsening since yesterday. Patient reports has dialysis on Mondays, Wednesdays and Fridays. She is currently speaking in 3-4 word sentences. Patient denies chest pain, palpitations, fever or chills. Presented with increased dyspnea- had severe CHF and needed emergent dialysis Often noncompliant with dialysis and diet Time Seen by Provider: 01/17/17 01:35 Chief Complaint (Nursing): Shortness Of Breath History Per: Patient History/Exam Limitations: no limitations Onset/Duration Of Symptoms: Days (Yesterday) Current Symptoms Are (Timing): Still Present Initiating Event: Other (Not known) Current Respiratory Medications: None Severity: Mild Pain Scale Rating Of: 4 Associated Symptoms: denies: Fever, Chills, Chest Pain, Other (Papitations) Recent travel outside of the [place]: No Past Medical History Reviewed: Historical Data, Nursing Documentation, Vital Signs Vital Signs: Last Vital Signs Temp 97.9 F 01/17/17 02:48 Pulse 90 01/17/17 02:48 Resp 21 01/17/17 02:48 BP 181/87 H 01/17/17 02:48 Pulse Ox 83 L 01/17/17 03:10 - Medical History PMH: Anemia, Anxiety, Back Problems, CHF, Depression, Diabetes, Gall Bladder Disease, HTN, Hypercholesterolemia, Hypothyroidism, Peripheral Edema, Pneumonia , End Stage Renal Disease, Chronic Kidney Disease (Dialysis M_W_), Sleep Apnea , TIA (right sided weakness) Surgical History: Cholecystectomy, Endoscopy, Tonsillectomy Needs dialysis MWF. Want to go home. If discharged will follow as outpatient. Past Patient History - Infectious Disease Hx of Infectious Diseases: None - Past Medical History & Family History Past Medical History?: Yes - Past Social History Smoking Status: Never Smoked - CARDIAC Hx Congestive Heart Failure: Yes Hx Hypercholesterolemia: Yes Hx Hypertension: Yes Hx Peripheral Edema: Yes - PULMONARY Hx Pneumonia: Yes Hx Sleep Apnea: Yes - NEUROLOGICAL Hx Transient Ischemic Attacks (TIA): Yes (right sided weakness) - HEENT Hx HEENT Problems: Yes Other/Comment: Wears eyeglasses for reading/watching TV - RENAL Hx Chronic Kidney Disease: Yes (Dialysis M_W_) Date of Last Dialysis Treatment: 01/15/17 - ENDOCRINE/METABOLIC Hx Hypothyroidism: Yes - HEMATOLOGICAL/ONCOLOGICAL Hx Anemia: Yes - INTEGUMENTARY Hx Dermatological Problems: No - MUSCULOSKELETAL/RHEUMATOLOGICAL Hx Musculoskeletal Disorders: Yes Hx Back Pain: Yes Hx Falls: No Other/Comment: Lt 2nd toe infection - GASTROINTESTINAL Hx Gall Bladder Disease: Yes - GENITOURINARY/GYNECOLOGICAL Hx Genitourinary Disorders: No - PSYCHIATRIC Hx Anxiety: Yes Hx Substance Use: No - SURGICAL HISTORY Hx Cholecystectomy: Yes Hx Tonsillectomy: Yes - ANESTHESIA Hx Anesthesia: Yes Hx Anesthesia Reactions: No Hx Malignant Hyperthermia: No Meds Allergies/Adverse Reactions: Allergies Allergy/AdvReac Type Severity Reaction Status Date / Time calcium acetate [From PhosLo] Allergy Severe hives Verified 01/17/17 01:36 glycerin Allergy Severe RASH Verified 01/17/17 01:36 Influenza Virus Vaccines Allergy Severe ANAPHYLAXIS Verified 01/17/17 01:36 levofloxacin Allergy Severe numbness Verified 01/17/17 01:36 propylene glycol Allergy Severe SWELLING Verified 01/17/17 01:36 sodium polystyrene sulfonate Allergy Severe SWELLING Verified 01/17/17 01:36 [From Kayexalate] ergocalciferol (vitamin D2) Allergy SWELLING Verified 01/17/17 01:36 [From Vitamin D2] seafood Allergy Severe throat Uncoded 01/17/17 01:36 swelling - Medications Medications: Current Medications Furosemide (Lasix) 80 mg PO DAILY [facility] Last Admin: 01/17/17 10:00 Dose: Not Given Heparin Sodium (Porcine) (Heparin) 5,000 units SC Q12 [facility] Last Admin: 01/17/17 09:46 Dose: Not Given Hydralazine HCl (Apresoline) 50 mg PO TID [facility] Last Admin: 01/17/17 14:10 Dose: Not Given Isosorbide Mononitrate (Imdur) 30 mg PO DAILY [facility] Last Admin: 01/17/17 14:10 Dose: Not Given Metoprolol Tartrate (Lopressor) 25 mg PO BID [facility] Last Admin: 01/17/17 09:45 Dose: Not Given Pantoprazole Sodium (Protonix Ec Tab) 20 mg PO DAILY [facility] Last Admin: 01/17/17 10:00 Dose: Not Given Results - Vital Signs Recent Vital Signs: Last Vital Signs Temp 98 F 01/17/17 13:09 Pulse 82 01/17/17 13:09 Resp 20 01/17/17 13:09 BP 114/63 01/17/17 13:09 Pulse Ox 98 01/17/17 13:09 - Labs Result Diagrams: 01/17/17 01:57 01/17/17 01:57
--- NOTE | 2017-01-17 14:43 | CON ---
DATE: 01/17/2017 HISTORY OF PRESENT ILLNESS: The patient is a 67-year-old woman who came in extremely short of breath . She claims she had been on dialysis, but she has been noncompliant with her dialysis and diet. Lyric webster could hardly talk upon admission. She was diagnosed with severe congestive heart failure. Emergen t dialysis was accomplished. She was dialyzed and 3 liters of fluid were removed and the patient fel t much improved. PAST MEDICAL HISTORY: Diabetic nephropathy, end-stage renal disease from diabetes, recurrent CHF, an xiety, hypertension, dyslipidemia, hypothyroidism and she had a prior history of TIA. PAST SURGICAL HISTORY: AV fistula, tonsillectomy and cholecystectomy. SOCIAL HISTORY: Negative for smoking, alcohol abuse or illicit drug use. FAMILY HISTORY: Unknown family history of chronic kidney disease. MEDICATIONS: Include hydralazine, isosorbide, Lasix, metoprolol and Protonix. REVIEW OF SYSTEMS: Significant for increasing shortness of breath, orthopnea. She has poor vision. She has right-sided weakness. She has dyspnea on exertion 2 blocks. No recent chest pain. No rash es. No nausea, vomiting, diarrhea. Other review of systems are all negative. PHYSICAL EXAMINATION: GENERAL: She is a well-developed female in no acute distress, postdialysis. VITAL SIGNS: Blood pressure 114/63, temperature 98, pulse 82, pulse ox 98% on 3 liters nasal cannula . HEENT: Anicteric. Mouth was clear. NECK: No JVD. LUNGS: Lung shepherd were clear. HEART: Regular rhythm, no murmur. ABDOMEN: Soft, benign. No mass or organomegaly. EXTREMITIES: No peripheral edema. NEUROLOGIC: She had mild hemiparesis. She has a left arm AV fistula with a thrill and bruit. BLOOD WORK: Showed hemoglobin 9.8, potassium 4.1, BUN 52, creatinine 6.4, calcium 7.8. Troponin was normal. ProBNP was 23,200, which is very elevated. Chest x-ray had CHF. IMPRESSION AND PLAN: Congestive heart failure, end-stage renal disease, diabetic nephropathy. The p atient had emergent dialysis, was feeling better. Further dialysis will be scheduled as needed. Tyrese German MD cc: [id number] TT: 01/17/2017 14:42:53 Confirmation # [id number] Dictation # [id number] rn
--- NOTE | 2017-01-17 15:02 | CP.PCM.HP ---
Past Patient History - Infectious Disease Hx of Infectious Diseases: None - Past Medical History & Family History Past Medical History?: Yes - Past Social History Smoking Status: Never Smoked - CARDIAC Hx Congestive Heart Failure: Yes Hx Hypercholesterolemia: Yes Hx Hypertension: Yes Hx Peripheral Edema: Yes - PULMONARY Hx Pneumonia: Yes Hx Sleep Apnea: Yes - NEUROLOGICAL Hx Transient Ischemic Attacks (TIA): Yes (right sided weakness) - HEENT Hx HEENT Problems: Yes Other/Comment: Wears eyeglasses for reading/watching TV - RENAL Hx Chronic Kidney Disease: Yes (Dialysis M_W_F) Date of Last Dialysis Treatment: 01/15/17 - ENDOCRINE/METABOLIC Hx Hypothyroidism: Yes - HEMATOLOGICAL/ONCOLOGICAL Hx Anemia: Yes - INTEGUMENTARY Hx Dermatological Problems: No - MUSCULOSKELETAL/RHEUMATOLOGICAL Hx Musculoskeletal Disorders: Yes Hx Back Pain: Yes Hx Falls: No Other/Comment: Lt 2nd toe infection - GASTROINTESTINAL Hx Gall Bladder Disease: Yes - GENITOURINARY/GYNECOLOGICAL Hx Genitourinary Disorders: No - PSYCHIATRIC Hx Anxiety: Yes Hx Substance Use: No - SURGICAL HISTORY Hx Cholecystectomy: Yes Hx Tonsillectomy: Yes - ANESTHESIA Hx Anesthesia: Yes Hx Anesthesia Reactions: No Hx Malignant Hyperthermia: No Meds Allergies/Adverse Reactions: Allergies Allergy/AdvReac Type Severity Reaction Status Date / Time calcium acetate [From PhosLo] Allergy Severe hives Verified 01/17/17 01:36 glycerin Allergy Severe RASH Verified 01/17/17 01:36 Influenza Virus Vaccines Allergy Severe ANAPHYLAXIS Verified 01/17/17 01:36 levofloxacin Allergy Severe numbness Verified 01/17/17 01:36 propylene glycol Allergy Severe SWELLING Verified 01/17/17 01:36 sodium polystyrene sulfonate Allergy Severe SWELLING Verified 01/17/17 01:36 [From Kayexalate] ergocalciferol (vitamin D2) Allergy SWELLING Verified 01/17/17 01:36 [From Vitamin D2] seafood Allergy Severe throat Uncoded 01/17/17 01:36 swelling Results - Vital Signs Recent Vital Signs: Last Vital Signs Temp 98 F 01/17/17 13:09 Pulse 82 01/17/17 13:09 Resp 20 01/17/17 13:09 BP 114/63 01/17/17 13:09 Pulse Ox 98 01/17/17 13:09 - Labs Result Diagrams: 01/17/17 01:57 01/17/17 01:57
--- NOTE | 2017-01-17 15:02 | CP.PCM.DIS ---
Provider - Provider Date of Admission: 01/17/17 03:10 Attending physician: Sher Titus MD Hospital Course - Lab Results Lab Results: Most Recent Lab Values WBC 9.8 K/uL (4.8-10.8) 01/17/17 01:57 RBC 3.73 Mil/uL (3.80-5.20) L 01/17/17 01:57 Hgb 9.8 g/dL (11.0-16.0) L 01/17/17 01:57 Hct 30.2 % (34.0-47.0) L 01/17/17 01:57 MCV 80.8 fL (81.0-99.0) L D 01/17/17 01:57 MCH 26.2 pg (27.0-31.0) L 01/17/17 01:57 MCHC 32.4 g/dL (33.0-37.0) L 01/17/17 01:57 RDW 17.5 % (11.5-14.5) H 01/17/17 01:57 Plt Count 325 K/uL (130-400) 01/17/17 01:57 MPV 8.0 fL (7.2-11.7) 01/17/17 01:57 Neut % (Auto) 63.9 % (50.0-75.0) 01/17/17 01:57 Lymph % (Auto) 23.4 % (20.0-40.0) 01/17/17 01:57 Dawson % (Auto) 7.0 % (0.0-10.0) 01/17/17 01:57 Eos % (Auto) 4.3 % (0.0-4.0) H 01/17/17 01:57 Baso % (Auto) 1.4 % (0.0-2.0) 01/17/17 01:57 Neut # 6.2 K/uL (1.8-7.0) 01/17/17 01:57 Lymph # 2.3 K/uL (1.0-4.3) 01/17/17 01:57 Dawson # 0.7 K/uL (0.0-0.8) 01/17/17 01:57 Eos # 0.4 K/uL (0.0-0.7) 01/17/17 01:57 Baso # 0.1 K/uL (0.0-0.2) 01/17/17 01:57 PT 10.9 SECONDS (9.7-12.2) 01/17/17 01:57 INR 1.0 01/17/17 01:57 APTT 33 SECONDS (21-34) 01/17/17 01:57 Puncture Site Rr 01/17/17 01:54 pCO2 49 mm/Hg (35-45) H 01/17/17 01:54 pO2 53 mm/Hg (80-100) L 01/17/17 01:54 HCO3 23.5 mmol/L (21-28) 01/17/17 01:54 ABG pH 7.32 (7.35-7.45) L 01/17/17 01:54 ABG Total CO2 26.7 mmol/L (22-28) 01/17/17 01:54 ABG O2 Saturation 88.0 % (95-98) L 01/17/17 01:54 ABG Base Excess -1.4 mmol/L (-2.0-3.0) 01/17/17 01:54 Maurice Test Pos 01/17/17 01:54 ABG Potassium 4.0 mmol/L (3.6-5.2) 01/17/17 01:54 Sodium 131.0 mmol/l (132-148) L 01/17/17 01:54 Chloride 96.0 mmol/L (98-107) L 01/17/17 01:54 Glucose 262 mg/dl (65-105) H 01/17/17 01:54 Lactate 1.8 mmol/L (0.7-2.1) 01/17/17 01:54 Liter Flow 3.0 01/17/17 01:54 Sodium 130 mmol/L (132-148) L 01/17/17 01:57 Potassium 4.1 mmol/L (3.6-5.2) 01/17/17 01:57 Chloride 90 mmol/L (98-107) L 01/17/17 01:57 Carbon Dioxide 20 mmol/L (22-30) L 01/17/17 01:57 Anion Gap 24 (10-20) H 01/17/17 01:57 BUN 52 mg/dL (7-17) H 01/17/17 01:57 Creatinine 6.4 MG/DL (0.7-1.2) H 01/17/17 01:57 Est GFR ( Amer) 8 01/17/17 01:57 Est GFR (Non-Af Amer) 6 01/17/17 01:57 Random Glucose 263 mg/dL (65-105) H 01/17/17 01:57 Calcium 7.8 mg/dl (8.6-10.4) L 01/17/17 01:57 Total Bilirubin 0.6 mg/dL (0.2-1.3) 01/17/17 01:57 AST 21 U/L (14-36) 01/17/17 01:57 ALT 26 U/L (9-52) 01/17/17 01:57 Alkaline Phosphatase 91 U/L (38-126) 01/17/17 01:57 Troponin I 0.0150 ng/mL (0.00-0.120) 01/17/17 01:57 NT-Pro-B Natriuret Pep 16551 pg/mL (0-900) H 01/17/17 01:57 Total Protein 8.0 g/dL (6.3-8.3) 01/17/17 01:57 Albumin 5.0 g/dL (3.5-5.0) 01/17/17 01:57 Globulin 3.0 gm/dL (2.2-3.9) 01/17/17 01:57 Albumin/Globulin Ratio 1.6 (1.0-2.1) 01/17/17 01:57 Arterial Blood Potassium 4.0 mmol/L (3.6-5.2) 01/17/17 01:54 Discharge Plan - Follow Up Plan Condition: FAIR Disposition: HOME/ ROUTINE
[2017-01-17 15:48] VITALS: O2SAT 97
[2017-01-17 17:52] VITALS: BP 148/74
[2017-01-17 22:58] VITALS: PULSE 75
--- NOTE | 2017-01-19 02:04 | CARD ---
APPROVED REPORT EKG Measurement Heart [id number] <Conclusion> Poor data quality, interpretation may be adversely affected Sinus tachycardia Possible Left atrial enlargement Left axis deviation Left bundle branch block Abnormal ECG
== END 2017-01-17 18:50 | disposition home or self-care (01) ==
LOC: C.ER 01:19 → C.5T 03:10 → INTOOBSV 03:10
PROVIDERS: ADMIT Internal Medicine; ATTEND Internal Medicine
DX: I13.2 Hypertensive heart and chronic kidney disease with heart failure and with stage 5 chronic kidney disease, or end stage renal disease (principal); N18.6 End stage renal disease; I50.9 Heart failure, unspecified; Z87.01 Personal history of pneumonia (recurrent); Z99.2 Dependence on renal dialysis; G47.30 Sleep apnea, unspecified; E78.5 Hyperlipidemia, unspecified; E78.00 Pure hypercholesterolemia, unspecified; E11.22 Type 2 diabetes mellitus with diabetic chronic kidney disease; E11.21 Type 2 diabetes mellitus with diabetic nephropathy; E03.9 Hypothyroidism, unspecified
CPT/HCPCS: 71010; 80053; 82803; 83880; 84484; 85025; 85610; 85730; 93005; 96374; 99285; G0257; G0378; J0360; J1940

== ENCOUNTER 2017-02-16 23:28 | Emergency (ER) | payer MEDICARE, OTHER ==
[2017-02-16 23:28] VITALS: BMI 30.9
--- NOTE | 2017-02-17 00:08 | C.PDOC ---
History Of Present Illness The patient, whose PMHx includes ESRD (Dialysis M-W-F), presents to the ED for evaluation of shortness of breath which has been worsening for around 2 days. Patient states she attended dialysis session on Friday. Upon arrival to ED, patient is speaking in 5-6 word sentences and refuses both BiPAP and face mask. She denies fever, chills, cough, chest pain, nausea, vomiting. Time Seen by Provider: 02/17/17 00:06 Chief Complaint (Nursing): Shortness Of Breath History Per: Patient History/Exam Limitations: no limitations Onset/Duration Of Symptoms: Days, Worse Since Current Symptoms Are (Timing): Worse Quality: denies: "Pain" Current Respiratory Medications: See Home Med List Severity: Severe Pain Scale Rating Of: 7 Associated Symptoms: denies: Fever, Chills, Chest Pain, Bloody Cough, Productive Cough Recent travel outside of the [place]: No Additional History Per: Patient Past Medical History Reviewed: Historical Data, Nursing Documentation, Vital Signs Vital Signs: Last Vital Signs Temp 97.7 F 02/16/17 23:51 Pulse 99 H 02/17/17 02:16 Resp 17 02/17/17 02:16 BP 184/94 H 02/17/17 02:16 Pulse Ox 94 L 02/17/17 02:16 - Medical History PMH: Anemia, Anxiety, Back Problems, CHF, Depression, Diabetes, Gall Bladder Disease, HTN, Hypercholesterolemia, Hypothyroidism, Peripheral Edema, Pneumonia , End Stage Renal Disease, Chronic Kidney Disease (Dialysis M_W_F), Sleep Apnea , TIA (right sided weakness) Surgical History: Cholecystectomy, Endoscopy, Tonsillectomy - [facility] Procedures ASSISTANCE WITH RESPIRATORY VENTILATION, <24 HRS, CPAP (04/29/16) COLONOSCOPY (02/01/15) EXCISION OF LARGE INTESTINE, ENDO, DIAGN (04/29/16) FLUOROSCOPY OF SUPERIOR VENA CAVA, GUIDANCE (05/07/16) INSERTION OF ENDOTRACHEAL AIRWAY INTO TRACHEA, VIA OPENING (05/07/16) INSERTION OF INFUSION DEV INTO SUP VENA CAVA, PERC APPROACH (09/15/16) INTRAOPER CHOLANGIOGRAM (12/05/14) LAPAROSCOPIC CHOLECYSTECTOMY (12/05/14) LAPAROSCOPIC LIVER BIOPSY (12/05/14) PERFORMANCE OF URINARY FILTRATION, MULTIPLE (09/15/16) REMOVAL OF INFUSION DEVICE FROM UPPER VEIN, PROGRAM SPECIALIST APPROACH (08/14/16) RESPIRATORY VENTILATION, 24-96 CONSECUTIVE HOURS (05/07/16) TRANSFUSE NONAUT RED BLOOD CELLS IN PERIPH VEIN, PERC (04/29/16) Family History: States: Hypertension (mother and father) - Social History Hx Tobacco Use: No Hx Alcohol Use: No Hx Substance Use: No - Immunization History Hx Tetanus Toxoid Vaccination: No Hx Influenza Vaccination: No Hx Pneumococcal Vaccination: No Review Of Systems Constitutional: Negative for: Fever, Chills Cardiovascular: Negative for: Chest Pain, Palpitations Respiratory: Positive for: Shortness of Breath. Negative for: Cough Gastrointestinal: Negative for: Nausea, Vomiting Musculoskeletal: Negative for: Back Pain Skin: Negative for: Rash, Lesions, Jaundice, Bruising Neurological: Negative for: Weakness, Numbness Physical Exam - Physical Exam Appears: Non-toxic, No Acute Distress Skin: Warm, Dry Head: Normacephalic Eye(s): bilateral: Normal Inspection Oral Mucosa: Moist Neck: Supple Chest: Symmetrical, No Deformity, No Tenderness Cardiovascular: Rhythm Regular, No Murmur Respiratory: Rales, No Rhonchi, No Wheezing, Other (+patient is speaking 5-6 word sentences ) Gastrointestinal/Abdominal: Soft, Tenderness (mild to right upper quadrant on palpation ), No Guarding, No Rebound Extremity: Normal ROM, No Tenderness, Pedal Edema (bilaterally ), No Calf Tenderness, Capillary Refill (less than 2 seconds ), No Deformity, Other (+AV graft in place on left upper extremity with good thrill and bruit ) Neurological/Psych: Normal Speech, Normal Cognition Gait: Steady ED Course And Treatment - Laboratory Results Result Diagrams: 02/17/17 00:26 02/17/17 00:26 ECG: Interpreted By Me, Viewed By Me ECG Rhythm: Sinus Rhythm (98), L BBB, Nonspecific Changes (unchanged from 01/17/17 ) O2 Sat by Pulse Oximetry: 63 Pulse Ox Interpretation: Abnormal (placed on 6 l nc with saturation up to 97%) - Radiology CXR: Interpreted by Me, Viewed By Me CXR Interpretation: Yes: Cardiomegaly, Other (acute pulm edema) Progress Note: labs, EKG, and CXR ordered and reviewed. spoke with dr rocha. will do ememrgent HD Critical Care Time - Critical Care Note Total Time (in mins): 30 Documented critical care: time excludes all time spent performing seperately billable procedures. Disposition Counseled Patient/Family Regarding: Studies Performed, Diagnosis - Disposition Disposition: HOSPITALIZED Disposition Time: 00:08 Condition: FAIR - POA Present On Arrival: Poor Glycemic Control - Clinical Impression Clinical Impression: Acute pulmonary edema, ESRD needing dialysis - Scribe Statement The provider has reviewed the documentation as recorded by the Scribe (Rosalva Perez) Provider Attestation: All medical record entries made by the Scribe were at my direction and personally dictated by me. I have reviewed the chart and agree that the record accurately reflects my personal performance of the history, physical exam, medical decision making, and the department course for this patient. I have also personally directed, reviewed, and agree with the discharge instructions and disposition. Decision To Admit - Pt Status Changed To: Hospital Disposition Of: Observation - . Bed Request Type: Telemetry Admitting Physician: Sher Titus Patient Diagnosis: Acute pulmonary edema, ESRD needing dialysis
[2017-02-17 00:30] LABS: HEMOGLOBIN 9.4 g/dL (11.0-16.0)
[2017-02-17 00:33] LABS: INR 0.9; PROTHROMBIN TIME 10.3 SECONDS (9.7-12.2)
[2017-02-17 00:34] LABS: BASO # 0.1 K/uL (0.0-0.2); BASO % 1.2 % (0.0-2.0); EOS # 0.4 K/uL (0.0-0.7); EOS % 4.5 % (0.0-4.0); LYMPH # 2.8 K/uL (1.0-4.3); LYMPH % 33.7 % (20.0-40.0); MEAN CELL VOLUME 81.3 fL (81.0-99.0); MEAN CORPUSCULAR HEMOGLOBIN 26.2 pg (27.0-31.0); MEAN CORPUSCULAR HGB CONC 32.3 g/dL (33.0-37.0); MEAN PLATELET VOLUME 8.5 fL (7.2-11.7); MONO # 0.4 K/uL (0.0-0.8); MONO % 4.4 % (0.0-10.0); NEUT # 4.7 K/uL (1.8-7.0); NEUT % 56.2 % (50.0-75.0); RBC 3.59 Mil/uL (3.80-5.20); RED CELL DISTRIBUTION WIDTH 18.6 % (11.5-14.5); WHITE BLOOD COUNT 8.3 K/uL (4.8-10.8)
[2017-02-17 00:37] LABS: ALBUMIN 4.5 g/dL (3.5-5.0)
[2017-02-17 02:26] LABS: SQUAMOUS EPITHIAL 6 /hpf (0-5); URINE BILIRUBIN NEGATIVE (NEGATIVE); URINE BLOOD NEGATIVE (NEGATIVE); URINE CLARITY Hazy (Clear); URINE COLOR Yellow (YELLOW); URINE GLUCOSE (UA) 3+ mg/dL (Normal); URINE LEUKOCYTE ESTERASE 1+ Leu/uL (Negative); URINE NITRATE NEGATIVE (NEGATIVE); URINE PROTEIN 3+ mg/dL (NEGATIVE); URINE UROBILINOGEN NORMAL mg/dL (0.2-1.0)
[2017-02-17] MEDS ORDERED: Tramadol 25 mg PO PRN (02:36)
[2017-02-17 07:39] VITALS: TEMP 97.7; O2SAT 100
--- NOTE | 2017-02-17 09:02 | RAD ---
PROCEDURE: CHEST RADIOGRAPH, 1 VIEW HISTORY: Shortness of breath COMPARISON: None available. FINDINGS: LUNGS: Prominent diffuse increased opacification throughout both lung shepherd suggestive for prominent edema and or infiltrate. Question small bilateral pleural effusions. Right hilar prominence. PLEURA: As above. CARDIOVASCULAR: Cardiomegaly. Tortuous ectatic aorta. OSSEOUS STRUCTURES: No significant abnormalities. VISUALIZED UPPER ABDOMEN: Normal. OTHER FINDINGS: None. IMPRESSION: Prominent diffuse increased opacification throughout both lung shepherd suggestive for prominent edema and or infiltrate. Question small bilateral pleural effusions. Right hilar prominence.
[2017-02-17] MEDS ORDERED: Pantoprazole 20 mg EC Tab PO SCH (10:00)
[2017-02-17 10:45] VITALS: PULSE 84; RESP 20
[2017-02-17] MEDS ORDERED: Pantoprazole 40 mg EC Tab PO ONE (11:11)
[2017-02-17 11:14] VITALS: BP 139/57
--- NOTE | 2017-02-17 11:39 | CP.PCM.CON ---
History of Present Illness - History of Present Illness History of Present Illness: The patient, whose PMHx includes ESRD (Dialysis M-W-F), presents to the ED for evaluation of shortness of breath which has been worsening for around 2 days. Patient states she attended dialysis session on Friday. Upon arrival to ED, patient is speaking in 5-6 word sentences and refuses both BiPAP and face mask. She denies fever, chills, cough, chest pain, nausea, vomiting. PMH: ESRD HTN CHF PSH:: AV FISTULA PATIENT HAD EMERGENT DIALYSIS THIS am FOR CHF FEEOLS BETTER NOW BUT INSISTING ON LEAVING AMA HAD 2750 ML FLUIDS REMOVED AT DIALYSIS Review of Systems - Constitutional Constitutional: Lethargy, Weakness - EENT Eyes: absent: As Per HPI, Blind Spots, Blurred Vision, Change in Vision, Decreased Night Vision, Diplopia, Discharge, Dry Eye, Exophthalmos, Floaters, Irritation, Itchy Eyes, Loss of Peripheral Vision, Pain, Photophobia, Requires Corrective Lenses, Sees Flashes, Spots in Vision, Tunnel Vision, Other Visual Disturbances, Loss of Vision, Other Nose/Mouth/Throat: absent: As Per HPI, Epistaxis, Nasal Congestion, Nasal Discharge, Nasal Obstruction, Nasal Trauma, Nose Pain, Post Nasal Drip, Sinus Pain, Sinus Pressure, Bleeding Gums, Change in Voice, Dental Pain, Dry Mouth, Dysphagia, Halitosis, Hoarsness, Lip Swelling, Mouth Lesions, Mouth Pain, Odynophagia, Sore Throat, Throat Swelling, Tongue Swelling, Facial Pain, Neck Pain, Neck Mass, Other - Cardiovascular Cardiovascular: Dyspnea on Exertion - Respiratory Respiratory: Cough, Dyspnea - Gastrointestinal Gastrointestinal: Abdominal Pain - Genitourinary Genitourinary: absent: As Per HPI, Change in Urinary Stream, Difficulty Urinating, Dysuria, Flank Pain, Hematuria, Pyuria, Nocturia, Urinary Incontinence, Urinary Frequency, Urinary Hesitance, Urinary Urgency, Voiding Freq/Small Amts, Freq UTI, Hx Renal/Bladder Calculi, Hx /Renal Surgery, Bladder Distension, Other - Musculoskeletal Musculoskeletal: Muscle Weakness, Myalgias - Integumentary Integumentary: absent: As Per HPI, Acne, Alopecia, Bleeding Lesions, Change in Hair, Change in Nails, Change in Pigmentation, Changing Lesions, Dry Skin, Erythema, Furuncle, Hirsutism, Lesions, New Lesions, Non-Healing Lesions, Photosensitivity, Pruritus, Rash, Skin Pain, Skin Ulcer, Sores, Striae, Swelling , Unusual Bruising, Wounds, Jaundice, Other - Neurological Neurological: absent: As Per HPI, Abnormal Gait, Abnormal Hearing, Abnormal Movements, Abnormal Speech, Behavioral Changes, Burning Sensations, Confusion, Convulsions, Disequilibrium, Dizziness, Numbness, Focal Weakness, Frequent Falls , Headaches, Lack of Coordination, Loss of Vision, Memory Loss, Paresthesias, Radicular Pain, Restless Legs, Sensory Deficit, Syncope, Tingling, Tremor, Vertigo, Weakness, Other Visual Disturbances, Other - Psychiatric Psychiatric: absent: As Per HPI, Abnormal Sleep Pattern, Anhedonia, Anxiety, Auditory Hallucinations, Behavioral Changes, Change in Appetite, Change in Libido, Confusion, Depression, Difficulty Concentrating, Hallucinations, Homicidal Ideation, Hopelessness, Irritability, Memory Loss, Mood Swings, Panic Attacks, Paranoia, Suicidal Ideation, Visual Hallucinations, Tactile Hallucinations, Other - Endocrine Endocrine: absent: As Per HPI, Change in Body Appearance, Change in Libido, Cold Intolorance, Deepening of Voice, Excessive Sweating, Fatigue, Flushing, Heat Intolorance, Increase in Ring/Shoe/Hat Size, Palpitations, Polydipsia, Polyphagia, Polyuria, Other Past Patient History - Infectious Disease Hx of Infectious Diseases: None - Past Medical History & Family History Past Medical History?: Yes - Past Social History Smoking Status: Never Smoked Chewing Tobacco Use: No Cigar Use: No Alcohol: None Drugs: Denies Home Situation {Lives}: With Family - CARDIAC Hx Congestive Heart Failure: Yes Hx Hypercholesterolemia: Yes Hx Hypertension: Yes Hx Peripheral Edema: Yes - PULMONARY Hx Pneumonia: Yes Hx Sleep Apnea: Yes - NEUROLOGICAL Hx Transient Ischemic Attacks (TIA): Yes (right sided weakness) - HEENT Hx HEENT Problems: Yes Other/Comment: Wears eyeglasses for reading/watching TV - RENAL Hx Chronic Kidney Disease: Yes (Dialysis M_W_F) - ENDOCRINE/METABOLIC Hx Hypothyroidism: Yes - HEMATOLOGICAL/ONCOLOGICAL Hx Anemia: Yes - INTEGUMENTARY Hx Dermatological Problems: No - MUSCULOSKELETAL/RHEUMATOLOGICAL Hx Musculoskeletal Disorders: Yes Hx Back Pain: Yes Hx Falls: No Other/Comment: Lt 2nd toe infection - GASTROINTESTINAL Hx Gall Bladder Disease: Yes - GENITOURINARY/GYNECOLOGICAL Hx Genitourinary Disorders: No - PSYCHIATRIC Hx Anxiety: Yes Hx Depression: Yes Hx Substance Use: No - SURGICAL HISTORY Hx Cholecystectomy: Yes Hx Tonsillectomy: Yes - ANESTHESIA Hx Anesthesia: Yes Hx Anesthesia Reactions: No Hx Malignant Hyperthermia: No Meds Allergies/Adverse Reactions: Allergies Allergy/AdvReac Type Severity Reaction Status Date / Time calcium acetate [From PhosLo] Allergy Severe hives Verified 02/16/17 23:54 glycerin Allergy Severe RASH Verified 02/16/17 23:54 Influenza Virus Vaccines Allergy Severe ANAPHYLAXIS Verified 02/16/17 23:54 levofloxacin Allergy Severe numbness Verified 02/16/17 23:54 propylene glycol Allergy Severe SWELLING Verified 02/16/17 23:54 sodium polystyrene sulfonate Allergy Severe SWELLING Verified 02/16/17 23:54 [From Kayexalate] ergocalciferol (vitamin D2) Allergy SWELLING Verified 02/16/17 23:54 [From Vitamin D2] seafood Allergy Severe throat Uncoded 02/16/17 23:54 swelling - Medications Medications: Current Medications Furosemide (Lasix) 80 mg PO DAILY [facility] Last Admin: 02/17/17 11:13 Dose: 80 mg Hydralazine HCl (Apresoline) 50 mg PO Q8 [facility] Isosorbide Mononitrate (Imdur) 30 mg PO DAILY [facility] Last Admin: 02/17/17 11:13 Dose: 30 mg Metoprolol Tartrate (Lopressor) 25 mg PO BID [facility] Last Admin: 02/17/17 11:13 Dose: 25 mg Pantoprazole Sodium (Protonix Ec Tab) 20 mg PO DAILY [facility] Last Admin: 02/17/17 11:13 Dose: 20 mg Tramadol HCl (Ultram) 25 mg PO Q6 PRN PRN Reason: Pain, moderate (4-7) Physical Exam - Constitutional Appears: No Acute Distress, Chronically Ill - Head Exam Head Exam: ATRAUMATIC, NORMAL INSPECTION - Eye Exam Eye Exam: EOMI, Normal appearance - Neck Exam Neck exam: Positive for: Normal Inspection. Negative for: Tenderness - Respiratory Exam Respiratory Exam: Clear to Auscultation Bilateral, NORMAL BREATHING PATTERN - Cardiovascular Exam Cardiovascular Exam: REGULAR RHYTHM, +S1 - GI/Abdominal Exam GI & Abdominal Exam: Distended, Soft - Extremities Exam Extremities exam: Positive for: normal inspection, tenderness - Neurological Exam Neurological exam: Alert, CN II-XII Intact - Skin Skin Exam: Dry, Warm Results - Vital Signs Recent Vital Signs: Last Vital Signs Temp 97.7 F 02/17/17 07:38 Pulse 84 02/17/17 10:45 Resp 20 02/17/17 10:45 BP 139/57 L 02/17/17 11:13 Pulse Ox 100 02/17/17 10:45 - Labs Result Diagrams: 02/17/17 00:26 02/17/17 00:26 Labs: Laboratory Results - last 24 hr 02/17/17 02:10 Urine Color Yellow Urine Clarity Hazy Urine pH 7.0 Ur Specific [place] 1.012 Urine Protein 3+ H Urine Glucose (UA) 3+ H Urine Ketones Negative Urine Blood Negative Urine Nitrate Negative Urine Bilirubin Negative Urine Urobilinogen Normal Ur Leukocyte Esterase 1+ H Urine WBC (Auto) 19 H Urine RBC (Auto) 1 Ur Squamous Epith Cells 6 H Assessment & Plan (1) ESRD needing dialysis Status: Acute (2) CHF exacerbation Status: Acute - Assessment and Plan (Free Text) Plan: EMERGENT DIALYSIS DONE WIT UF 2750ML PT TO NOW SIGN OUT AMA
--- NOTE | 2017-02-19 11:01 | CARD ---
APPROVED REPORT EKG Measurement Heart [id number] <Conclusion> Normal sinus rhythm Left axis deviation Left bundle branch block Abnormal ECG
== END 2017-02-17 11:36 | disposition left against medical advice (07) ==
LOC: C.ER 23:28 → UNDOADMOB 02-17 01:24 → C.9E 02-17 01:24 → UNDODISOB 02-17 11:35 → C.ER 02-17 11:36
DX: I13.2 Hypertensive heart and chronic kidney disease with heart failure and with stage 5 chronic kidney disease, or end stage renal disease (principal); I50.9 Heart failure, unspecified; N18.6 End stage renal disease; Z99.2 Dependence on renal dialysis
CPT/HCPCS: 71010; 80053; 81001; 83880; 85025; 85610; 85730; 93005; 99285; G0257; G0378

== ENCOUNTER 2017-03-02 23:39 | Inpatient (IN) | payer MEDICARE, OTHER ==
[2017-03-02 23:40] VITALS: BMI 30.9
--- NOTE | 2017-03-03 00:16 | C.PDOC ---
History Of Present Illness 67 yo female, esrd on hd mwf, presnts with sob/abdominal pain/swelling/leg swelling. as per pt, received hd on friday. pt states she feels pain to the right side of her abdomen. pt states she has had "this pain intermtittanly for years". no fevers, no n/v/d, pt does make small amoutn of urine. pt also noted swelling and eccymosis to her left upper arm, after hd on fri. pt does report she was able to get hd on friday. Time Seen by Provider: 03/02/17 23:56 Chief Complaint (Nursing): Abdominal Pain Past Medical History Vital Signs: Last Vital Signs Temp 98 F 03/03/17 15:40 Pulse 73 03/03/17 17:31 Resp 16 03/03/17 15:40 BP 133/69 03/03/17 17:31 Pulse Ox 96 03/03/17 18:01 - Medical History PMH: Anemia, Anxiety, Back Problems, CHF, Depression, Diabetes, Gall Bladder Disease, HTN, Hypercholesterolemia, Hypothyroidism, Peripheral Edema, Pneumonia , End Stage Renal Disease, Chronic Kidney Disease (Dialysis M_W_F), Sleep Apnea , TIA (right sided weakness) Surgical History: Cholecystectomy, Endoscopy, Tonsillectomy - [facility] Procedures ASSISTANCE WITH RESPIRATORY VENTILATION, <24 HRS, CPAP (04/29/16) COLONOSCOPY (02/01/15) EXCISION OF LARGE INTESTINE, ENDO, DIAGN (04/29/16) FLUOROSCOPY OF SUPERIOR VENA CAVA, GUIDANCE (05/07/16) INSERTION OF ENDOTRACHEAL AIRWAY INTO TRACHEA, VIA OPENING (05/07/16) INSERTION OF INFUSION DEV INTO SUP VENA CAVA, PERC APPROACH (09/15/16) INTRAOPER CHOLANGIOGRAM (12/05/14) LAPAROSCOPIC CHOLECYSTECTOMY (12/05/14) LAPAROSCOPIC LIVER BIOPSY (12/05/14) PERFORMANCE OF URINARY FILTRATION, MULTIPLE (09/15/16) REMOVAL OF INFUSION DEVICE FROM UPPER VEIN, PILOT BOAT OPERATOR APPROACH (08/14/16) RESPIRATORY VENTILATION, 24-96 CONSECUTIVE HOURS (05/07/16) TRANSFUSE NONAUT RED BLOOD CELLS IN PERIPH VEIN, PERC (04/29/16) Family History: States: Unknown Family Hx, Hypertension (mother and father) - Social History Hx Tobacco Use: No Hx Alcohol Use: No Hx Substance Use: No - Immunization History Hx Tetanus Toxoid Vaccination: No Hx Influenza Vaccination: No Hx Pneumococcal Vaccination: No Review Of Systems Respiratory: Positive for: Shortness of Breath Gastrointestinal: Positive for: Abdominal Pain Physical Exam - Physical Exam Appears: Well, No Acute Distress Skin: Normal Color, Warm, Dry Eye(s): bilateral: Normal Inspection, PERRL, EOMI Nose: Normal Throat: Normal Neck: Normal Cardiovascular: Rhythm Regular Respiratory: Rales Gastrointestinal/Abdominal: Normal Exam Back: Normal Inspection Extremity: Normal ROM ED Course And Treatment - Laboratory Results Result Diagrams: 03/03/17 00:26 03/03/17 00:26 O2 Sat by Pulse Oximetry: 96 Medical Decision Making Medical Decision Making: suspect fluid overload/chf/renal failure- labs imaging pending. pt offered CT imaging of abdomen. pt refuses ct. 330: cxr shows pulm vasc congestion. noted anemia, pt refuses guiac. dr hartman paged. unable to reach dr stover given multiple pages. hospitalist accepts. throughout ed stay, pt continues to refuse ct and guiac testing, but denies gi bleeding. 400: updated dr muller, covering dr hartman, will arrange for blood via hd, and will arrange for hd at 8am. [address] stover. accept spt. hospitalist updated to transfer pt. Disposition - Disposition Disposition: HOSPITALIZED Disposition Time: 04:00 Condition: FAIR - Clinical Impression Clinical Impression: CHF (congestive heart failure), Renal failure, Abdominal pain
[2017-03-03 00:30] LABS: BASO # 0.1 K/uL (0.0-0.2); BASO % 0.8 % (0.0-2.0); EOS # 0.3 K/uL (0.0-0.7); EOS % 2.5 % (0.0-4.0); HEMOGLOBIN 7.3 g/dL (11.0-16.0); LYMPH # 1.4 K/uL (1.0-4.3); LYMPH % 13.9 % (20.0-40.0); MEAN CELL VOLUME 82.8 fL (81.0-99.0); MEAN CORPUSCULAR HEMOGLOBIN 26.7 pg (27.0-31.0); MEAN CORPUSCULAR HGB CONC 32.2 g/dL (33.0-37.0); MEAN PLATELET VOLUME 8.5 fL (7.2-11.7); MONO # 0.4 K/uL (0.0-0.8); MONO % 4.3 % (0.0-10.0); NEUT # 7.8 K/uL (1.8-7.0); NEUT % 78.5 % (50.0-75.0); RBC 2.74 Mil/uL (3.80-5.20); RED CELL DISTRIBUTION WIDTH 18.7 % (11.5-14.5)
[2017-03-03 00:38] LABS: PROTHROMBIN TIME 11.5 SECONDS (9.7-12.2)
[2017-03-03 00:53] LABS: TROPONIN I 0.018 ng/mL (0.00-0.120)
[2017-03-03 00:57] LABS: ALB/GLOB RATIO 1.4 (1.0-2.1); ALBUMIN 4.2 g/dL (3.5-5.0); BILIRUBIN,DIRECT 0.8 mg/dL (0.0-0.4)
--- NOTE | 2017-03-03 03:59 | CP.PCM.HP ---
<Clay Rodriguez - Last Filed: 03/03/17 06:26> History of Present Illness - History of Present Illness History of Present Illness: CC: SOB and RUQ pain for the past few days HPI: This 67 yo female with past medical history of ESRD on HD MWF, CHF, anemia , HTN, and DM - presents to the ED c/o SOB and RUQ pain for the past few days. Patient admits that she attended her 3 sessions of HD this week, however she often stops the HD session 1 hour short, due to feeling drowsy and weak. Patient also admits that she has not taken any of her home medications for nearly 2 months, stating that they are making her worse, and are the reason for her kidney problems and prior gall-bladder issues. She has been feeling well without them, until now. The daughter was at bedside, and agrees. Patient describes the SOB as tightness in her chest due to fluid. She admits the right upper quadrant pain that has been persistent intermittently over the past 2 years, but increased in intensity last night, reaching an 8/10, with associated constipation (admits to small hard BM ). She had a Cholecystectomy 2 years ago in hopes of resolving her RUQ pain, however it persists. Pt also notes swelling and eccymosis to her left upper arm, after HD this past Friday. Admits to LE edema and decreased appetite over the past 2 years. Denies f/c, dizziness, chest pain, palpitations, n/v, diarrhea, back pain, sick contacts, or any additional acute complaints. ED course: patient refused CT imaging and stool guiac. PMHx - DM II, HTN, HLD, CKD on HD MWF (make small amount of urine) Surg - Cholecystectomy 2 years ago , Tonsillectomy, AVF Fam HX - Father - HTN, Mother - HTN Allergies - phoslo, glycerin, levofloxacin, propylene glycol. kayexalate, seafood Meds: Patient should be taking Lasix 80 mg daily, Hydralazine 50 mg PO TID, Imdur 30 mg PO daily and Lopressor 25 mg PO BID, but does not take them. Social - denies drug, tobacco, alcohol use; lives with daughter PMD: Dr. Titus Outpt nephro: Dr. German Present on Admission - Present on Admission Any Indicators Present on Admission: No Review of Systems - EENT Additional comments: - Constitutional Constitutional: absent: Fever, Headache - EENT Eyes: absent: Blurred Vision, Change in Vision Ears: absent: Decreased Hearing, Ear Discharge Nose/Mouth/Throat: absent: Nasal Congestion, Nasal Discharge - Cardiovascular Cardiovascular: absent: Chest Pain, Chest Pain at Rest, Diaphoresis - Respiratory Respiratory: Cough, Dyspnea, Dyspnea on Exertion - Gastrointestinal Gastrointestinal: Abdominal Pain (RUQ) absent: Diarrhea, Nausea - Genitourinary Genitourinary: Urinary Frequency - Musculoskeletal Musculoskeletal: absent: Back Pain - Integumentary Integumentary: Swelling. absent: Dry Skin - Neurological Neurological: absent: Abnormal Hearing, Abnormal Movements, Confusion - Psychiatric Psychiatric: absent: Abnormal Sleep Pattern, Anxiety - Hematologic/Lymphatic Hematologic: absent: Easy Bleeding, Easy Bruising Past Patient History - Infectious Disease Hx of Infectious Diseases: None - Past Medical History & Family History Past Medical History?: Yes - Past Social History Smoking Status: Never Smoked - CARDIAC Hx Congestive Heart Failure: Yes Hx Hypercholesterolemia: Yes Hx Hypertension: Yes Hx Peripheral Edema: Yes - PULMONARY Hx Pneumonia: Yes Hx Sleep Apnea: Yes - NEUROLOGICAL Hx Transient Ischemic Attacks (TIA): Yes (right sided weakness) - HEENT Hx HEENT Problems: Yes Other/Comment: Wears eyeglasses for reading/watching TV - RENAL Hx Chronic Kidney Disease: Yes (Dialysis _W_) - ENDOCRINE/METABOLIC Hx Hypothyroidism: Yes - HEMATOLOGICAL/ONCOLOGICAL Hx Anemia: Yes - INTEGUMENTARY Hx Dermatological Problems: No - MUSCULOSKELETAL/RHEUMATOLOGICAL Hx Musculoskeletal Disorders: Yes Hx Back Pain: Yes Hx Falls: No Other/Comment: Lt 2nd toe infection - GASTROINTESTINAL Hx Gall Bladder Disease: Yes - GENITOURINARY/GYNECOLOGICAL Hx Genitourinary Disorders: No - PSYCHIATRIC Hx Anxiety: Yes Hx Depression: Yes Hx Substance Use: No - SURGICAL HISTORY Hx Cholecystectomy: Yes Hx Tonsillectomy: Yes - ANESTHESIA Hx Anesthesia: Yes Hx Anesthesia Reactions: No Hx Malignant Hyperthermia: No Meds Allergies/Adverse Reactions: Allergies Allergy/AdvReac Type Severity Reaction Status Date / Time calcium acetate [From PhosLo] Allergy Severe hives Verified 03/02/17 23:50 glycerin Allergy Severe RASH Verified 03/02/17 23:50 Influenza Virus Vaccines Allergy Severe ANAPHYLAXIS Verified 03/02/17 23:50 levofloxacin Allergy Severe numbness Verified 03/02/17 23:50 propylene glycol Allergy Severe SWELLING Verified 03/02/17 23:50 sodium polystyrene sulfonate Allergy Severe SWELLING Verified 03/02/17 23:50 [From Kayexalate] ergocalciferol (vitamin D2) Allergy SWELLING Verified 03/02/17 23:50 [From Vitamin D2] seafood Allergy Severe throat Uncoded 03/02/17 23:50 swelling Physical Exam - Additional Findings Additional findings: - Constitutional Appears: Non-toxic, No Acute Distress - Head Exam Head Exam: ATRAUMATIC, NORMAL INSPECTION, NORMOCEPHALIC - Eye Exam Eye Exam: EOMI, Normal appearance, PERRL Pupil Exam: NORMAL ACCOMODATION - ENT Exam ENT Exam: Mucous Membranes Moist - Neck Exam Neck exam: Positive for: Full Rom - Respiratory Exam Respiratory Exam: Rales, Respiratory Distress. absent: Wheezes, Stridor - Cardiovascular Exam Cardiovascular Exam: Regular Rate, +S1, +S2 - GI/Abdominal Exam GI & Abdominal Exam: Distended, Normal Bowel Sounds, Soft, Tenderness (RUQ) - Extremities Exam Extremities exam: Positive for: full ROM, normal capillary refill, pedal edema ( 1+ edema b/l), pedal pulses present - Back Exam Back exam: FULL ROM - Neurological Exam Neurological exam: Alert, Oriented x3 - Psychiatric Exam Psychiatric exam: Normal Affect, Normal Mood - Skin Skin Exam: Dry, Intact, Warm Results - Vital Signs Recent Vital Signs: Last Vital Signs Temp 97.5 F L 03/02/17 23:48 Pulse 89 03/03/17 02:22 Resp 20 03/03/17 02:22 BP 170/69 H 03/03/17 02:22 Pulse Ox 96 03/03/17 03:51 - Labs Result Diagrams: 03/03/17 00:26 03/03/17 00:26 Assessment & Plan - Assessment and Plan (Free Text) Assessment: CHF / Renal Failure / Fluid overload - CXR shows pulm vasc congestion. - Noted anemia, pt refuses guiac. - BiPAP - 05/15/80% - Dr. German consulted- dialysis today. Will follow up recommendations Dr muller, covering dr german, HD at 8am - f/u NATTY x2 ESRD on hemodialysis - Patient has HD on MWF - Dr. German consulted- dialysis today. Will follow up recommendations Dr muller, covering dr german, HD at 8am Abdominal Pain CT abdomen and pelvis- ordered but patient refused. HTN (hypertension) Uncontrolled- Non compliant with meds per daughter Patient counseled on importance of taking BP meds Diabetes mellitus Uncontrolled- Non compliant with meds per daughter Patient counseled on importance of taking BP meds Novolog ISS - high dose latest A1c 7.5 Prophylaxis Heparin 5000 units q12h SCDs C/I due to LE edema - Date & Time Date: 03/03/17 Time: 04:00 <Ngai Mann - Last Filed: 03/03/17 06:40> Results - Vital Signs Recent Vital Signs: Last Vital Signs Temp 97.5 F L 03/02/17 23:48 Pulse 94 H 03/03/17 04:01 Resp 22 03/03/17 04:01 BP 179/82 H 03/03/17 04:01 Pulse Ox 96 03/03/17 04:05 - Labs Result Diagrams: 03/03/17 00:26 03/03/17 00:26 Assessment & Plan - Date & Time Date: 03/03/17 (I have seen and examined the patient. I agree with the findings and plan of care as documented by Dr. Rodriguez. Patient volume overloaded secondary to ESRD, in need of dialysis. Also with history of CHF. Noncompliant with home meds. Will continue home meds. Patient also anemic and may need to transfuse while on dialysis. Monitor for hemodynamic instability. Monitor for acute changes.) Time: 06:39 Attending/Attestation - Attestation I have personally seen and examined this patient.: Yes I have fully participated in the care of the patient.: Yes I have reviewed all pertinent clinical information: Yes
--- NOTE | 2017-03-03 08:48 | RAD ---
PROCEDURE: CHEST RADIOGRAPH, 1 VIEW HISTORY: Abdominal pain COMPARISON: 03/03/2017. FINDINGS: LUNGS: There is interval improvement in pulmonary venous congestion and interstitial pulmonary edema. PLEURA: No pneumothorax or pleural fluid seen. CARDIOVASCULAR: The heart is normal in size. OSSEOUS STRUCTURES: No significant abnormalities. VISUALIZED UPPER ABDOMEN: Normal. OTHER FINDINGS: None. IMPRESSION: Interval improvement in pulmonary venous congestion and interstitial pulmonary edema.
[2017-03-03] MEDS: (Novolog) Insulin Aspart, Recombinant 100 u/ml 10 ml vial SC SCH ×3 (09:02→16:19)
[2017-03-03] MEDS ORDERED: Pantoprazole 20 mg EC Tab PO SCH (10:00)
--- NOTE | 2017-03-03 10:58 | CP.PCM.CON ---
History of Present Illness - History of Present Illness History of Present Illness: HPI: This 67 yo female with past medical history of ESRD on HD MWF, CHF, anemia , HTN, and DM - presents to the ED c/o SOB and RUQ pain for the past few days. Patient admits that she attended her 3 sessions of HD this week, however she often stops the HD session 1 hour short, due to feeling drowsy and weak. Patient also admits that she has not taken any of her home medications for nearly 2 months, stating that they are making her worse, and are the reason for her kidney problems and prior gall-bladder issues. She has been feeling well without them, until now. The daughter was at bedside, and agrees. Patient describes the SOB as tightness in her chest due to fluid. She admits the right upper quadrant pain that has been persistent intermittently over the past 2 years, but increased in intensity last night, reaching an 8/10, with associated constipation (admits to small hard BM ). She had a Cholecystectomy 2 years ago in hopes of resolving her RUQ pain, however it persists. Pt also notes swelling and eccymosis to her left upper arm, after HD this past Friday. Admits to LE edema and decreased appetite over the past 2 years. Denies f/c, dizziness, chest pain, palpitations, n/v, diarrhea, back pain, sick contacts, or any additional acute complaints. ED course: patient refused CT imaging and stool guiac. PMHx - DM II, HTN, HLD, CKD on HD MWF (make small amount of urine) Surg - Cholecystectomy 2 years ago , Tonsillectomy, AVF Fam HX - Father - HTN, Mother - HTN Allergies - phoslo, glycerin, levofloxacin, propylene glycol. kayexalate, seafood Meds: Patient should be taking Lasix 80 mg daily, Hydralazine 50 mg PO TID, Imdur 30 mg PO daily and Lopressor 25 mg PO BID, but does not take them. Social - denies drug, tobacco, alcohol use; lives with daughter PMD: Dr. Titus Outpt nephro: Dr. German Has refused IV Fe; unable to adequately treat anemia Can order blood transfusion Trial miralax for constipation Dialysis today for CHF Review of Systems - Constitutional Constitutional: Fatigue, Weakness - EENT Eyes: Blurred Vision, Decreased Night Vision Nose/Mouth/Throat: absent: As Per HPI, Epistaxis, Nasal Congestion, Nasal Discharge, Nasal Obstruction, Nasal Trauma, Nose Pain, Post Nasal Drip, Sinus Pain, Sinus Pressure, Bleeding Gums, Change in Voice, Dental Pain, Dry Mouth, Dysphagia, Halitosis, Hoarsness, Lip Swelling, Mouth Lesions, Mouth Pain, Odynophagia, Sore Throat, Throat Swelling, Tongue Swelling, Facial Pain, Neck Pain, Neck Mass, Other - Cardiovascular Cardiovascular: Dyspnea on Exertion, Paroxysmal Nocturnal Dyspnea - Respiratory Respiratory: Cough, Dyspnea on Exertion - Gastrointestinal Gastrointestinal: Abdominal Pain, Constipation - Genitourinary Genitourinary: As Per HPI - Musculoskeletal Musculoskeletal: Muscle Weakness, Stiffness - Integumentary Integumentary: Dry Skin, Unusual Bruising - Neurological Neurological: Weakness Past Patient History - Infectious Disease Hx of Infectious Diseases: None - Past Medical History & Family History Past Medical History?: Yes Past Family History: Reviewed and not pertinent - Past Social History Smoking Status: Never Smoked Chewing Tobacco Use: No Cigar Use: No Alcohol: None Home Situation {Lives}: With Family - CARDIAC Hx Congestive Heart Failure: Yes Hx Hypercholesterolemia: Yes Hx Hypertension: Yes Hx Peripheral Edema: Yes - PULMONARY Hx Pneumonia: Yes Hx Sleep Apnea: Yes - NEUROLOGICAL Hx Transient Ischemic Attacks (TIA): Yes (right sided weakness) - HEENT Hx HEENT Problems: Yes Other/Comment: Wears eyeglasses for reading/watching TV - RENAL Hx Chronic Kidney Disease: Yes (Dialysis M_W_F) Hx Dialysis: Yes Type of Dialysis Access: AV fistula - ENDOCRINE/METABOLIC Hx Diabetes Mellitus Type 2: Yes Hx Hypothyroidism: Yes - HEMATOLOGICAL/ONCOLOGICAL Hx Anemia: Yes - INTEGUMENTARY Hx Dermatological Problems: No - MUSCULOSKELETAL/RHEUMATOLOGICAL Hx Musculoskeletal Disorders: Yes Hx Back Pain: Yes Hx Falls: No Other/Comment: Lt 2nd toe infection - GASTROINTESTINAL Hx Gall Bladder Disease: Yes - GENITOURINARY/GYNECOLOGICAL Hx Genitourinary Disorders: No - PSYCHIATRIC Hx Anxiety: Yes Hx Depression: Yes Hx Substance Use: No - SURGICAL HISTORY Hx Surgeries: Yes Hx Arteriovenous Shunt: Yes Hx Cholecystectomy: Yes Hx Tonsillectomy: Yes - ANESTHESIA Hx Anesthesia: Yes Hx Anesthesia Reactions: No Hx Malignant Hyperthermia: No Meds Allergies/Adverse Reactions: Allergies Allergy/AdvReac Type Severity Reaction Status Date / Time calcium acetate [From PhosLo] Allergy Severe hives Verified 03/02/17 23:50 glycerin Allergy Severe RASH Verified 03/02/17 23:50 Influenza Virus Vaccines Allergy Severe ANAPHYLAXIS Verified 03/02/17 23:50 levofloxacin Allergy Severe numbness Verified 03/02/17 23:50 propylene glycol Allergy Severe SWELLING Verified 03/02/17 23:50 sodium polystyrene sulfonate Allergy Severe SWELLING Verified 03/02/17 23:50 [From Kayexalate] ergocalciferol (vitamin D2) Allergy SWELLING Verified 03/02/17 23:50 [From Vitamin D2] seafood Allergy Severe throat Uncoded 03/02/17 23:50 swelling - Medications Medications: Current Medications Furosemide (Lasix) 80 mg PO DAILY SOILA Hydralazine HCl (Apresoline) 50 mg PO TID [facility] Insulin Aspart (Novolog) 0 unit SC ACHS SOILA PRN Reason: Protocol Last Admin: 03/03/17 09:02 Dose: 6 unit Isosorbide Mononitrate (Imdur) 30 mg PO DAILY SOILA Metoprolol Tartrate (Lopressor) 25 mg PO BID SOILA Pantoprazole Sodium (Protonix Ec Tab) 20 mg PO DAILY [facility] Physical Exam - Eye Exam Eye Exam: EOMI, Normal appearance - ENT Exam ENT Exam: Normal Exam, Normal Oropharynx - Neck Exam Neck exam: Positive for: Normal Inspection. Negative for: Tenderness - Respiratory Exam Respiratory Exam: Rales, Respiratory Distress - Cardiovascular Exam Cardiovascular Exam: REGULAR RHYTHM, +S1 - GI/Abdominal Exam GI & Abdominal Exam: Soft, Tenderness - Extremities Exam Extremities exam: Positive for: pedal edema, tenderness - Neurological Exam Neurological exam: Alert, CN II-XII Intact - Psychiatric Exam Psychiatric exam: Agitated, Anxious - Skin Skin Exam: Dry, Warm Results - Vital Signs Recent Vital Signs: Last Vital Signs Temp 98 F 03/03/17 07:50 Pulse 89 03/03/17 08:00 Resp 19 03/03/17 07:50 BP 160/75 H 03/03/17 07:50 Pulse Ox 98 03/03/17 07:50 - Labs Result Diagrams: 03/03/17 00:26 03/03/17 00:26 Labs: Laboratory Results - last 24 hr 03/03/17 07:01 POC Glucose (mg/dL) 278 H Assessment & Plan (1) Type 2 diabetes mellitus with diabetic nephropathy Status: Acute (2) Iron deficiency anemia Status: Acute (3) Acute pulmonary edema Status: Acute (4) Anemia of chronic disease Status: Acute (5) HTN (hypertension) Status: Chronic - Assessment and Plan (Free Text) Plan: Immediate dialysis Adequate UF Blood transfusion Pt refusing IV Fe, ESAs
[2017-03-03 13:09] LABS: CK-MB 3.35 ng/mL (0.0-3.38)
[2017-03-03 13:51] VITALS: RESP 16
[2017-03-03 15:07] VITALS: TEMP 98
[2017-03-03 15:09] LABS: CK-MB 3.77 ng/mL (0.0-3.38)
[2017-03-03 17:30] VITALS: BP 133/69
[2017-03-03 18:01] VITALS: O2SAT 96
[2017-03-03 18:18] VITALS: PULSE 80
== END 2017-03-03 18:30 | disposition left against medical advice (07) | DRG 291 ==
LOC: C.ER 23:39 → C.5T 03-03 03:28
PROVIDERS: ADMIT Internal Medicine; ATTEND Internal Medicine
PROC: 5A1D60Z (ICD-10-PCS; principal; 2017-03-03)
DX: I13.2 Hypertensive heart and chronic kidney disease with heart failure and with stage 5 chronic kidney disease, or end stage renal disease (principal); N18.6 End stage renal disease; I50.9 Heart failure, unspecified; E11.22 Type 2 diabetes mellitus with diabetic chronic kidney disease; D64.9 Anemia, unspecified; E03.9 Hypothyroidism, unspecified; E78.5 Hyperlipidemia, unspecified; G47.30 Sleep apnea, unspecified; L08.9 Local infection of the skin and subcutaneous tissue, unspecified; Z53.20 Procedure and treatment not carried out because of patient's decision for unspecified reasons; E78.00 Pure hypercholesterolemia, unspecified; Z87.01 Personal history of pneumonia (recurrent); Z90.49 Acquired absence of other specified parts of digestive tract; Z91.14 Patient's other noncompliance with medication regimen; Z99.2 Dependence on renal dialysis

== ENCOUNTER 2017-03-06 19:49 | Emergency (ER) | payer MEDICARE, OTHER ==
[2017-03-06 19:49] VITALS: BMI 30.9
--- NOTE | 2017-03-06 20:49 | C.PDOC ---
History Of Present Illness 67 y/o female on Dialysis presents to ED with complaints of RUQ pain and "inflammation" of area. Patient has a history of RUQ pain for 2 years and was admitted to hospital 03/03/17 for similar symptoms. Patient states she went to see her PMD (Dr. Titus) this morning and was given a prescription for CT of abdomen and pelvis w/o contrast to rule out kidney stones. Patient reports decreased appetite but states she tried eating liver and had a choking episode with trouble swallowing and throat pain followed by a vomiting episode that cleared her esophagus. Patient states she is tolerating liquids and reports feeling nauseous. No other complaints at this time. Time Seen by Provider: 03/06/17 20:26 Chief Complaint (Nursing): GI Problem History Per: Patient History/Exam Limitations: no limitations Onset/Duration Of Symptoms: Hrs Current Symptoms Are (Timing): Still Present Location Of Pain/Discomfort: RUQ Radiation Of Pain To:: None Past Medical History Reviewed: Historical Data, Nursing Documentation, Vital Signs Vital Signs: Last Vital Signs Temp 97.3 F L 03/06/17 19:51 Pulse 83 03/06/17 19:51 Resp 20 03/06/17 19:51 BP 189/84 H 03/06/17 19:51 Pulse Ox 94 L 03/06/17 23:54 - Medical History PMH: Anemia, Anxiety, Back Problems, CHF, Depression, Diabetes, Gall Bladder Disease, HTN, Hypercholesterolemia, Hypothyroidism, Peripheral Edema, Pneumonia , End Stage Renal Disease, Chronic Kidney Disease (Dialysis M_W_F), Sleep Apnea , TIA (right sided weakness) Surgical History: Cholecystectomy, Endoscopy, Tonsillectomy - [facility] Procedures ASSISTANCE WITH RESPIRATORY VENTILATION, <24 HRS, CPAP (04/29/16) COLONOSCOPY (02/01/15) EXCISION OF LARGE INTESTINE, ENDO, DIAGN (04/29/16) FLUOROSCOPY OF SUPERIOR VENA CAVA, GUIDANCE (05/07/16) INSERTION OF ENDOTRACHEAL AIRWAY INTO TRACHEA, VIA OPENING (05/07/16) INSERTION OF INFUSION DEV INTO SUP VENA CAVA, PERC APPROACH (09/15/16) INTRAOPER CHOLANGIOGRAM (12/05/14) LAPAROSCOPIC CHOLECYSTECTOMY (12/05/14) LAPAROSCOPIC LIVER BIOPSY (12/05/14) PERFORMANCE OF URINARY FILTRATION, MULTIPLE (03/03/17) REMOVAL OF INFUSION DEVICE FROM UPPER VEIN, FURNITURE ASSEMBLY SUPERVISOR APPROACH (08/14/16) RESPIRATORY VENTILATION, 24-96 CONSECUTIVE HOURS (05/07/16) TRANSFUSE NONAUT RED BLOOD CELLS IN PERIPH VEIN, PERC (04/29/16) Family History: States: Unknown Family Hx, Hypertension (mother and father) - Social History Hx Tobacco Use: No Hx Alcohol Use: No Hx Substance Use: No - Immunization History Hx Tetanus Toxoid Vaccination: No Hx Influenza Vaccination: No Hx Pneumococcal Vaccination: No Review Of Systems Except As Marked, All Systems Reviewed And Found Negative. Constitutional: Negative for: Fever, Chills Respiratory: Negative for: Shortness of Breath Gastrointestinal: Positive for: Nausea, Vomiting, Abdominal Pain. Negative for : Diarrhea Skin: Negative for: Rash Physical Exam - Physical Exam Appears: No Acute Distress Skin: Normal Color, Warm Head: Atraumatic, Normacephalic Oral Mucosa: Moist Throat: Normal, No Erythema, No Drooling Chest: Symmetrical Cardiovascular: Rhythm Regular, No Murmur Respiratory: Normal Breath Sounds, No Rales, No Rhonchi, No Wheezing Gastrointestinal/Abdominal: No Tenderness, No Guarding, No Rebound, Other (Pain on palpation to RUQ) Extremity: Normal ROM, Capillary Refill (<2 seconds) Neurological/Psych: Oriented x3 ED Course And Treatment - Laboratory Results Result Diagrams: 03/06/17 20:47 03/06/17 20:47 Lab Interpretation: Abnormal (Anemia and elevated BUN Cr consistent with ESRD, Glucose 248, Urine with 37 WBC and 21 Epith cells. Culture sent .) O2 Sat by Pulse Oximetry: 94 (RA) Pulse Ox Interpretation: Normal - CT Scan/US Abdomen/pelvis w/o contrast Other Rad Studies (CT/US): Interpreted By Me, Read By Radiologist CT/US Interpretation: EXAM: CT Abdomen and Pelvis Without Intravenous Contrast. CLINICAL HISTORY: 67 years old, female; Pain; Abdominal pain; Localized; Right upper quadrant (ruq); Additional info: Abd pain. TECHNIQUE: Axial computed tomography images of the abdomen and pelvis without intravenous contrast. This. CT exam was performed using one or more of the following dose reduction techniques: automated. exposure control, adjustment of the mA and/or kV according to patient size, and/or use of iterative. reconstruction technique. Coronal and sagittal reformatted images were created and reviewed. EXAM DATE/TIME: 03/06/2017 9:59 PM. COMPARISON: US - RENAL 06/08/2015 3:08:10 PM. FINDINGS: Lower thorax: Heart size is normal. There are coronary calcifications. There is decreased. attenuation of blood pool relative to myocardium. There is scarring at the lung bases There is a small. hiatal hernia. ABDOMEN: Liver: unremarkable. Gallbladder and bile ducts: Gallbladder is absent. Common bile duct is prominent. Pancreas: Pancreas is atrophic. Spleen: unremarkable. Adrenals: There is nodular thickening of the adrenals. Kidneys and ureters: Kidneys and ureters are unremarkable.. Stomach and bowel: Stomach is almost empty. Rotation is normal. There is no obstruction. Terminal. ileum is unremarkable. Appendix is unremarkable. There is moderate stool in the colon. Appendix: See above. PELVIS: Bladder: unremarkable. Reproductive: Uterus is mildly enlarged with coarse calcifications. There is an 8.4 x 7.3 x 8.7 cm. cystic right adnexal mass. Wall appears mildly irregular. There are coarse calcifications in the left. adnexa. Left adnexa is not enlarged. ABDOMEN and PELVIS: Intraperitoneal space : There is no free air. There is no free fluid. Bones/joints: There are degenerative changes in the osseus structures. Soft tissues: There is a small fat-containing umbilical hernia. Vasculature: There are multiple phleboliths. There are vascular calcifications. Lymph nodes: There is shotty para-aortic adenopathy. IMPRESSION: Possible anemia; prominent common duct status post cholecystectomy; pancreatic. atrophy; 8.4 x 7.3 x 8.7 cm cystic right adnexal mass; calcified uterine fibroid; coarse calcification in. the left adnexa; possible constipation. Additional findings as described above. Thank you for allowing us to participate in the care of your patient. Dictated and Authenticated by: Kimberly Guzman MD. 03/06/2017 11:30 PM Eastern Time ([place] & [place]) Reevaluation Time: 00:00 Reassessment Condition: Improved (Patient remains comfortable in ED.) - Physician Consult Information Time Consulting Physician Contacted: 00:01 Physician Contacted: Sher Titus Outcome Of Conversation: Patient is known to have a cystic mass in the right adnexae. Now unchanged in size compared to 04/2016. He will follow up with her in the office. Disposition - Disposition Referrals: Sher Titus MD [Staff Provider] - Disposition: HOME/ ROUTINE Disposition Time: 00:02 Condition: IMPROVED Instructions: Flank Pain (ED) Forms: [employer] (Gabonese) - Clinical Impression Clinical Impression: Abdominal pain, ESRD on hemodialysis, Adnexal mass - Scribe Statement The provider has reviewed the documentation as recorded by the Donibdarin Alva All medical record entries made by the Donibe were at my direction and personally dictated by me. I have reviewed the chart and agree that the record accurately reflects my personal performance of the history, physical exam, medical decision making, and the department course for this patient. I have also personally directed, reviewed, and agree with the discharge instructions and disposition.
[2017-03-06 20:51] LABS: BASO # 0.1 K/uL (0.0-0.2); BASO % 0.7 % (0.0-2.0); EOS # 0.4 K/uL (0.0-0.7); EOS % 4.6 % (0.0-4.0); HEMATOCRIT 25.4 % (34.0-47.0); LYMPH # 1.6 K/uL (1.0-4.3); LYMPH % 18.5 % (20.0-40.0); MEAN CELL VOLUME 83.6 fL (81.0-99.0); MEAN CORPUSCULAR HEMOGLOBIN 27.8 pg (27.0-31.0); MEAN CORPUSCULAR HGB CONC 33.3 g/dL (33.0-37.0); MEAN PLATELET VOLUME 8.2 fL (7.2-11.7); MONO # 0.7 K/uL (0.0-0.8); MONO % 7.8 % (0.0-10.0); RED CELL DISTRIBUTION WIDTH 18.2 % (11.5-14.5); WHITE BLOOD COUNT 8.5 K/uL (4.8-10.8)
[2017-03-06 21:00] LABS: POTASSIUM 3.7 mmol/L (3.6-5.2); RBC URINE 1 /hpf (0-3); URINE BACTERIA RARE (<OCC); URINE BILIRUBIN NEGATIVE (NEGATIVE); URINE BLOOD NEGATIVE (NEGATIVE); URINE COLOR Yellow (YELLOW); URINE GLUCOSE (UA) 3+ mg/dL (Normal); URINE KETONE NEGATIVE (NEGATIVE); URINE LEUKOCYTE ESTERASE 1+ Leu/uL (Negative); URINE PROTEIN 3+ mg/dL (NEGATIVE); URINE UROBILINOGEN NORMAL mg/dL (0.2-1.0); WBC URINE 37 /hpf (0-5)
[2017-03-06 21:02] LABS: BILIRUBIN,TOTAL 0.8 mg/dL (0.2-1.3)
[2017-03-06 21:03] LABS: ALB/GLOB RATIO 1.2 (1.0-2.1); CALCIUM 8.3 mg/dl (8.6-10.4); TOTAL PROTEIN 7.3 g/dL (6.3-8.3)
[2017-03-06] MEDS ORDERED: Iohexol 240 (50 ml) ONE (21:57)
--- NOTE | 2017-03-06 23:30 | CT ---
EXAM: CT Abdomen and Pelvis Without Intravenous Contrast CLINICAL HISTORY: 67 years old, female; Pain; Abdominal pain; Localized; Right upper quadrant (ruq); Additional info: Abd pain TECHNIQUE: Axial computed tomography images of the abdomen and pelvis without intravenous contrast. This CT exam was performed using one or more of the following dose reduction techniques: automated exposure control, adjustment of the mA and/or kV according to patient size, and/or use of iterative reconstruction technique. Coronal and sagittal reformatted images were created and reviewed. EXAM DATE/TIME: 03/06/2017 9:59 PM COMPARISON: US - RENAL 06/08/2015 3:08:10 PM FINDINGS: Lower thorax: Heart size is normal. There are coronary calcifications. There is decreased attenuation of blood pool relative to myocardium. There is scarring at the lung bases There is a small hiatal hernia. ABDOMEN: Liver: unremarkable Gallbladder and bile ducts: Gallbladder is absent. Common bile duct is prominent. Pancreas: Pancreas is atrophic. Spleen: unremarkable Adrenals: There is nodular thickening of the adrenals. Kidneys and ureters: Kidneys and ureters are unremarkable.. Stomach and bowel: Stomach is almost empty. Rotation is normal. There is no obstruction. Terminal ileum is unremarkable. Appendix is unremarkable. There is moderate stool in the colon. Appendix: See above. PELVIS: Bladder: unremarkable Reproductive: Uterus is mildly enlarged with coarse calcifications. There is an 8.4 x 7.3 x 8.7 cm cystic right adnexal mass. Wall appears mildly irregular. There are coarse calcifications in the left adnexa. Left adnexa is not enlarged. ABDOMEN and PELVIS: Intraperitoneal space: There is no free air. There is no free fluid. Bones/joints: There are degenerative changes in the osseus structures. Soft tissues: There is a small fat-containing umbilical hernia Vasculature: There are multiple phleboliths. There are vascular calcifications. Lymph nodes: There is shotty para-aortic adenopathy IMPRESSION: Possible anemia; prominent common duct status post cholecystectomy; pancreatic atrophy; 8.4 x 7.3 x 8.7 cm cystic right adnexal mass; calcified uterine fibroid; coarse calcification in the left adnexa; possible constipation Additional findings as described above.
[2017-03-07 00:14] VITALS: BP 168/84; PULSE 84; RESP 16; TEMP 97.5; O2SAT 97
== END 2017-03-07 00:14 | disposition home or self-care (01) ==
LOC: C.ER 19:49
DX: R10.11 Right upper quadrant pain (principal); N85.9 Noninflammatory disorder of uterus, unspecified; N18.6 End stage renal disease; Z99.2 Dependence on renal dialysis

== ENCOUNTER 2017-03-09 20:13 | Observation (INO) | payer MEDICARE, OTHER ==
[2017-03-09 20:13] VITALS: BMI 30.9
--- NOTE | 2017-03-09 21:02 | C.PDOC ---
History Of Present Illness 67 year old female presents to the emergency department with complaints of SOB, chest tightness, productive cough that began today and increased bilateral leg swelling for two days. Patient notes similar symptoms multiple times in the past "when overloaded with fluids." Her last dialysis was Friday and has chronic abdominal pain and bloating. Patient denies fever or other complaints at this time. Time Seen by Provider: 03/09/17 20:58 Chief Complaint (Nursing): Abdominal Pain History Per: Patient History/Exam Limitations: no limitations Onset/Duration Of Symptoms: Hrs, Days (2 days of leg swelling bilaterally ) Current Symptoms Are (Timing): Still Present Radiation Of Pain To:: None Quality Of Discomfort: Other (tightness) Associated Symptoms: denies: Fever, Nausea, Vomiting Recent travel outside of the [place]: No Additional History Per: Prior Records Past Medical History Reviewed: Historical Data, Nursing Documentation, Vital Signs Vital Signs: Last Vital Signs Temp 97.8 F 03/09/17 20:25 Pulse 86 03/09/17 20:25 Resp 18 03/09/17 20:25 BP 191/69 H 03/09/17 20:25 Pulse Ox 95 03/09/17 22:16 - Medical History PMH: Anemia, Anxiety, Back Problems, CHF, Depression, Diabetes, Gall Bladder Disease, HTN, Hypercholesterolemia, Hypothyroidism, Peripheral Edema, Pneumonia , End Stage Renal Disease, Chronic Kidney Disease (Dialysis M_W_F), Sleep Apnea , TIA (right sided weakness) Surgical History: Cholecystectomy, Endoscopy, Tonsillectomy - [facility] ASSISTANCE WITH RESPIRATORY VENTILATION, <24 HRS, CPAP (04/29/16) COLONOSCOPY (02/01/15) EXCISION OF LARGE INTESTINE, ENDO, DIAGN (04/29/16) FLUOROSCOPY OF SUPERIOR VENA CAVA, GUIDANCE (05/07/16) INSERTION OF ENDOTRACHEAL AIRWAY INTO TRACHEA, VIA OPENING (05/07/16) INSERTION OF INFUSION DEV INTO SUP VENA CAVA, PERC APPROACH (09/15/16) INTRAOPER CHOLANGIOGRAM (12/05/14) LAPAROSCOPIC CHOLECYSTECTOMY (12/05/14) LAPAROSCOPIC LIVER BIOPSY (12/05/14) PERFORMANCE OF URINARY FILTRATION, MULTIPLE (03/03/17) REMOVAL OF INFUSION DEVICE FROM UPPER VEIN, RUBBER AND POUNDER APPROACH (08/14/16) RESPIRATORY VENTILATION, 24-96 CONSECUTIVE HOURS (05/07/16) TRANSFUSE NONAUT RED BLOOD CELLS IN PERIPH VEIN, PERC (04/29/16) Family History: States: Hypertension (mother and father) - Social History Hx Tobacco Use: No Hx Alcohol Use: No Hx Substance Use: No - Immunization History Hx Tetanus Toxoid Vaccination: No Hx Influenza Vaccination: No Hx Pneumococcal Vaccination: No Review Of Systems Except As Marked, All Systems Reviewed And Found Negative. Cardiovascular: Positive for: Other (chest tightness) Respiratory: Positive for: Cough, Shortness of Breath Musculoskeletal: Positive for: Leg Pain (bilateral leg swelling ) Physical Exam - Physical Exam Appears: Non-toxic, No Acute Distress Skin: Warm, Dry Head: Atraumatic Eye(s): bilateral: Normal Inspection, PERRL, EOMI Oral Mucosa: Moist Neck: Supple Chest: Symmetrical, No Deformity Cardiovascular: Rhythm Regular Respiratory: Rales (rales in bilateral bases ), No Rhonchi, No Wheezing Gastrointestinal/Abdominal: Soft, No Tenderness, No Distention, No Guarding, No Rebound Extremity: Other (+1 pitting edema bilateral ankles ) ED Course And Treatment - Laboratory Results Result Diagrams: 03/09/17 21:50 03/09/17 21:50 ECG Rhythm: Sinus Rhythm (NSR 83 bpm with left bundle branch block, no STEMI) O2 Sat by Pulse Oximetry: 95 (room air ) Medical Decision Making Medical Decision Making: makayla Titus who will admit 1040pm makayla German- will plan for HD in the morning. Disposition - Disposition Disposition: HOSPITALIZED Disposition Time: 22:56 Condition: STABLE Forms: [facility] (Micronesian) - Clinical Impression Clinical Impression: ESRD needing dialysis, CHF (congestive heart failure), Volume overload - Scribe Statement The provider has reviewed the documentation as recorded by the Scribe Elli Estevez All medical record entries made by the Scribe were at my direction and personally dictated by me. I have reviewed the chart and agree that the record accurately reflects my personal performance of the history, physical exam, medical decision making, and the department course for this patient. I have also personally directed, reviewed, and agree with the discharge instructions and disposition.
[2017-03-09 21:53] LABS: BASO # 0.1 K/uL (0.0-0.2); BASO % 1.2 % (0.0-2.0); EOS # 0.4 K/uL (0.0-0.7); EOS % 4.8 % (0.0-4.0); LYMPH # 1.6 K/uL (1.0-4.3); MEAN CELL VOLUME 84.4 fL (81.0-99.0); MEAN CORPUSCULAR HGB CONC 33.1 g/dL (33.0-37.0); MEAN PLATELET VOLUME 7.9 fL (7.2-11.7); MONO # 0.6 K/uL (0.0-0.8); RED CELL DISTRIBUTION WIDTH 18.6 % (11.5-14.5); WHITE BLOOD COUNT 8.6 K/uL (4.8-10.8)
[2017-03-09 21:58] LABS: VENOUS BLOOD GAS BASE EXCESS 1.7 mmol/L (0.0-2.0); VENOUS BLOOD GAS PCO2 48 mmHg (40-60); VENOUS BLOOD PH 7.37 (7.32-7.43)
[2017-03-09 22:04] LABS: POTASSIUM 4.5 mmol/L (3.6-5.2)
[2017-03-09 22:06] LABS: ALB/GLOB RATIO 1.2 (1.0-2.1); BILIRUBIN,TOTAL 0.8 mg/dL (0.2-1.3); TOTAL PROTEIN 7.4 g/dL (6.3-8.3)
[2017-03-09 22:07] LABS: CALCIUM 7.9 mg/dl (8.6-10.4)
[2017-03-09 22:28] LABS: TROPONIN I 0.036 ng/mL (0.00-0.120)
[2017-03-09] MEDS ORDERED: Naproxen 550 mg Tab PO STA (23:53)
[2017-03-10] MEDS ORDERED: Naproxen 550 mg Tab PO ONE (00:15)
[2017-03-10] MEDS ORDERED: EPOETIN ALFA 10,000 UNIT/ML ML IV SCH (09:00)
--- NOTE | 2017-03-10 09:24 | RAD ---
HISTORY: Shortness of breath COMPARISON: No prior. TECHNIQUE: Chest PA and lateral FINDINGS: LUNGS: Diffuse increased interstitial lung markings bilaterally most prominent at the lung bases with patchy bibasilar airspace opacities. Biapical pleural thickening with upper lobe granulomatous changes. Mild scattered nodularity at the lung bases. PLEURA: No significant pleural effusion identified. No pneumothorax apparent. CARDIOVASCULAR: Tortuous aorta. Calcification at the aortic knob. Mild cardiomegaly. OSSEOUS STRUCTURES: Degenerative changes in the spine and shoulders. VISUALIZED UPPER ABDOMEN: Normal. OTHER FINDINGS: None. IMPRESSION: Diffuse increased interstitial lung markings bilaterally most prominent at the lung bases with patchy bibasilar airspace opacities. Biapical pleural thickening with upper lobe granulomatous changes. Mild scattered nodularity at the lung bases.
[2017-03-10] MEDS ORDERED: Epoetin Alfa 10,000 unit/ml Dialysis IV SCH (11:15)
--- NOTE | 2017-03-10 11:56 | CP.PCM.CON ---
History of Present Illness - History of Present Illness History of Present Illness: 67 y/o female on dialysis x 1 year; presents with increased dyspnea, peripheral edema Dialysis started for fluid overload Has been very noncompliant with diet and recommended meds PMH: Anemia, Anxiety, Back Problems, CHF, Depression, Diabetes, Gall Bladder Disease, HTN, Hypercholesterolemia, Hypothyroidism, Peripheral Edema, Pneumonia , End Stage Renal Disease, Chronic Kidney Disease (Dialysis M_W_F), Sleep Apnea , TIA (right sided weakness) Surgical History: Cholecystectomy, Endoscopy, Tonsillectomy Review of Systems - Constitutional Constitutional: Fatigue, Headache - EENT Eyes: absent: As Per HPI, Blind Spots, Blurred Vision, Change in Vision, Decreased Night Vision, Diplopia, Discharge, Dry Eye, Exophthalmos, Floaters, Irritation, Itchy Eyes, Loss of Peripheral Vision, Pain, Photophobia, Requires Corrective Lenses, Sees Flashes, Spots in Vision, Tunnel Vision, Other Visual Disturbances, Loss of Vision, Other Ears: absent: As Per HPI, Decreased Hearing, Ear Discharge, Ear Pain, Tinnitus, Abnormal Hearing, Disequilibrium, Dizziness, Other - Cardiovascular Cardiovascular: Dyspnea on Exertion, Orthopnea - Respiratory Respiratory: Cough, Dyspnea on Exertion - Gastrointestinal Gastrointestinal: Bloating, Cramping - Genitourinary Genitourinary: As Per HPI - Musculoskeletal Musculoskeletal: Muscle Weakness, Myalgias - Integumentary Integumentary: absent: As Per HPI, Acne, Alopecia, Bleeding Lesions, Change in Hair, Change in Nails, Change in Pigmentation, Changing Lesions, Dry Skin, Erythema, Furuncle, Hirsutism, Lesions, New Lesions, Non-Healing Lesions, Photosensitivity, Pruritus, Rash, Skin Pain, Skin Ulcer, Sores, Striae, Swelling , Unusual Bruising, Wounds, Jaundice, Other - Neurological Neurological: Numbness, Weakness Past Patient History - Infectious Disease Hx of Infectious Diseases: None - Past Medical History & Family History Past Medical History?: Yes Past Family History: Reviewed and not pertinent - Past Social History Smoking Status: Never Smoked Chewing Tobacco Use: No Cigar Use: No Home Situation {Lives}: With Family - CARDIAC Hx Congestive Heart Failure: Yes Hx Hypercholesterolemia: Yes Hx Hypertension: Yes Hx Peripheral Edema: Yes - PULMONARY Hx Pneumonia: Yes Hx Sleep Apnea: Yes - NEUROLOGICAL Hx Transient Ischemic Attacks (TIA): Yes (right sided weakness) - HEENT Hx HEENT Problems: Yes Other/Comment: Wears eyeglasses for reading/watching TV - RENAL Hx Chronic Kidney Disease: Yes (Dialysis M_W_F) Date of Last Dialysis Treatment: 03/07/17 - ENDOCRINE/METABOLIC Hx Hypothyroidism: Yes - HEMATOLOGICAL/ONCOLOGICAL Hx Anemia: Yes - INTEGUMENTARY Hx Dermatological Problems: No - MUSCULOSKELETAL/RHEUMATOLOGICAL Hx Musculoskeletal Disorders: Yes Hx Back Pain: Yes Hx Falls: No Other/Comment: Lt 2nd toe infection - GASTROINTESTINAL Hx Gall Bladder Disease: Yes - GENITOURINARY/GYNECOLOGICAL Hx Genitourinary Disorders: No - PSYCHIATRIC Hx Anxiety: Yes Hx Depression: Yes Hx Substance Use: Yes - SURGICAL HISTORY Hx Arteriovenous Shunt: Yes Hx Cholecystectomy: Yes Hx Tonsillectomy: Yes - ANESTHESIA Hx Anesthesia: Yes Hx Anesthesia Reactions: No Hx Malignant Hyperthermia: No Has any member of the family had a problem w/ anesthesia?: No Meds Allergies/Adverse Reactions: Allergies Allergy/AdvReac Type Severity Reaction Status Date / Time calcium acetate [From PhosLo] Allergy Severe hives Verified 03/02/17 23:50 glycerin Allergy Severe RASH Verified 03/02/17 23:50 Influenza Virus Vaccines Allergy Severe ANAPHYLAXIS Verified 03/02/17 23:50 levofloxacin Allergy Severe numbness Verified 03/02/17 23:50 propylene glycol Allergy Severe SWELLING Verified 03/02/17 23:50 sodium polystyrene sulfonate Allergy Severe SWELLING Verified 03/02/17 23:50 [From Kayexalate] ergocalciferol (vitamin D2) Allergy SWELLING Verified 03/02/17 23:50 [From Vitamin D2] seafood Allergy Severe throat Uncoded 03/02/17 23:50 swelling - Medications Medications: Current Medications Epoetin Alexsander (Procrit) 10,000 unit IV [facility] Last Admin: 03/10/17 11:23 Dose: 10,000 unit Physical Exam - Constitutional Appears: No Acute Distress, Chronically Ill - Head Exam Head Exam: ATRAUMATIC, NORMAL INSPECTION - Eye Exam Eye Exam: EOMI, Normal appearance - Neck Exam Neck exam: Positive for: Normal Inspection. Negative for: Tenderness - Respiratory Exam Respiratory Exam: Rales, NORMAL BREATHING PATTERN - Cardiovascular Exam Cardiovascular Exam: REGULAR RHYTHM, +S1 - GI/Abdominal Exam GI & Abdominal Exam: Soft. absent: Tenderness - Extremities Exam Extremities exam: Positive for: normal inspection. Negative for: tenderness - Neurological Exam Neurological exam: Alert, CN II-XII Intact Results - Vital Signs Recent Vital Signs: Last Vital Signs Temp 97.6 F 03/10/17 08:50 Pulse 73 03/10/17 10:00 Resp 18 03/10/17 10:00 BP 170/75 H 03/10/17 11:20 Pulse Ox 100 03/10/17 08:50 - Labs Result Diagrams: 03/09/17 21:50 03/09/17 21:50 Labs: Laboratory Results - last 24 hr 03/10/17 11:10 POC Glucose (mg/dL) 154 H Assessment & Plan (1) Hypertensive chronic kidney disease with stage 5 chronic kidney disease or end stage renal disease Status: Acute (2) CHF (congestive heart failure) Status: Acute (3) ESRD needing dialysis Status: Acute (4) Acute pulmonary edema Status: Acute - Assessment and Plan (Free Text) Plan: Dialysis with adequate UF- MWF BP control increase dietary/ med compliance
[2017-03-10 12:31] VITALS: TEMP 97.3
--- NOTE | 2017-03-10 13:38 | CARD ---
APPROVED REPORT EKG Measurement Heart [id number] HI [id number] <Conclusion> Normal sinus rhythm Left axis deviation Left bundle branch block Abnormal ECG
[2017-03-10 16:11] VITALS: BP 182/75; PULSE 71; RESP 20; O2SAT 95
--- NOTE | 2017-03-10 17:12 | CP.PCM.PN ---
Subjective - Date & Time of Evaluation Date of Evaluation: 03/10/17 Time of Evaluation: 17:12 - Subjective Subjective: PT SEEN AFTER DIALYSIS AND STABLE. PT WANTS TO GO HOME. NO COMPLAINTS. REFRIGERATION SPECIALIST DISCUSSED WITH DR. BALLESTEROS AND CYDNEY TO DC PT. PT TO F/U WITH HIM IN THE OFFICE WITHIN 1 WEEK. DISCUSSED D/C PLAN WITH PT AT LENGTH. NO FURTHER ORDERS. Objective - Vital Signs/Intake and Output Vital Signs (last 24 hours): Temp Pulse Resp BP Pulse Ox 97.3 F L 71 20 182/75 H 95 03/10/17 15:39 03/10/17 15:39 03/10/17 15:39 03/10/17 15:39 03/10/17 15:39 - Medications Medications: Current Medications Amlodipine Besylate (Norvasc) 5 mg PO DAILY [facility] Epoetin Alexsander (Procrit) 10,000 unit IV MWF [facility] Last Admin: 03/10/17 11:23 Dose: 10,000 unit Heparin Sodium (Porcine) (Heparin) 5,000 units SC Q12 [facility] Hydralazine HCl (Apresoline) 25 mg PO TID SOILA
--- NOTE | 2017-03-13 01:00 | CP.PCM.HP ---
History of Present Illness - History of Present Illness History of Present Illness: Chief complaint: Not feeling well shortness of breath History present illness: 67-year-old female with history of hypertension, end-stage renal disease on dialysis, admitted to the emergency room with the shortness of breath. Patient is concerned that she is not able to breathe, feeling not well. She's also complaining of some chest tightness. He received hemodialysis day before yesterday. But still continues to have symptoms of SOB. Past medical history hypertension and hypercholesteremia end-stage renal disease. Patient is having multiple allergic symptoms. She is always concerned about multiple medications causing allergic symptoms including bloated sensation of the abdomen, pain in the right upper quadrant, and also not feeling well. Patient is somewhat reluctant to take any prescription medication, and also further testing patient is trying to avoid Surgical history: AV fistula Allergies noted, patient has a multiple allergic including food, diet, and also medications. Family history noncontributory Review of system: Ongoing headache, body pain, feeling weak tired. Complaining of shortness of breath Vital signs reviewed No neck vein distention noted Bilateral wheezing noted CVS regular heart sound, no murmur noted Abdomen soft, nontender. Extremities no pedal edema ART GILDER alert awake oriented 3, no functional neurological deficit X-ray showing evidence of mild pulmonary edema Assessment and recommendation: 67-year-old female with history of hypertension and hypercholesteremia end- stage renal disease on dialysis admitted to the emergency room with the ongoing symptoms of shortness of breath. Possible fluid overload. I suggested the patient to have the emergency dialysis. And will follow the patient after the dialysis. Patient most likely noncompliance with medication, and she is also noncompressive the dialysis. We'll follow the patient Present on Admission - Present on Admission Any Indicators Present on Admission: No History of DVT/PE: No History of Uncontrolled Diabetes: No Urinary Catheter: No Decubitus Ulcer Present: No Past Patient History - Infectious Disease Hx of Infectious Diseases: None - Past Medical History & Family History Past Medical History?: Yes Past Family History: Reviewed and not pertinent - Past Social History Smoking Status: Never Smoked Chewing Tobacco Use: No Cigar Use: No Home Situation {Lives}: With Family - CARDIAC Hx Congestive Heart Failure: Yes Hx Hypercholesterolemia: Yes Hx Hypertension: Yes Hx Peripheral Edema: Yes - PULMONARY Hx Pneumonia: Yes Hx Sleep Apnea: Yes - NEUROLOGICAL Hx Transient Ischemic Attacks (TIA): Yes (right sided weakness) - HEENT Hx HEENT Problems: Yes Other/Comment: Wears eyeglasses for reading/watching TV - RENAL Hx Chronic Kidney Disease: Yes (Dialysis M_W_) Date of Last Dialysis Treatment: 03/07/17 - ENDOCRINE/METABOLIC Hx Hypothyroidism: Yes - HEMATOLOGICAL/ONCOLOGICAL Hx Anemia: Yes - INTEGUMENTARY Hx Dermatological Problems: No - MUSCULOSKELETAL/RHEUMATOLOGICAL Hx Musculoskeletal Disorders: Yes Hx Back Pain: Yes Hx Falls: No Other/Comment: Lt 2nd toe infection - GASTROINTESTINAL Hx Gall Bladder Disease: Yes - GENITOURINARY/GYNECOLOGICAL Hx Genitourinary Disorders: No - PSYCHIATRIC Hx Anxiety: Yes Hx Depression: Yes Hx Substance Use: Yes - SURGICAL HISTORY Hx Arteriovenous Shunt: Yes Hx Cholecystectomy: Yes Hx Tonsillectomy: Yes - ANESTHESIA Hx Anesthesia: Yes Hx Anesthesia Reactions: No Hx Malignant Hyperthermia: No Has any member of the family had a problem w/ anesthesia?: No Meds Home Medications: Home Medication List Medication Instructions Recorded Confirmed Type Acetaminophen with Codeine 1 each PO Q12 PRN #5 tablet 03/10/17 Rx [Tylenol with Codeine #3 Tablet] amLODIPine [Norvasc] 5 mg PO DAILY #30 tab 03/10/17 Rx Allergies/Adverse Reactions: Allergies Allergy/AdvReac Type Severity Reaction Status Date / Time calcium acetate [From PhosLo] Allergy Severe hives Verified 03/02/17 23:50 glycerin Allergy Severe RASH Verified 03/02/17 23:50 Influenza Virus Vaccines Allergy Severe ANAPHYLAXIS Verified 03/02/17 23:50 levofloxacin Allergy Severe numbness Verified 03/02/17 23:50 propylene glycol Allergy Severe SWELLING Verified 03/02/17 23:50 sodium polystyrene sulfonate Allergy Severe SWELLING Verified 03/02/17 23:50 [From Kayexalate] ergocalciferol (vitamin D2) Allergy SWELLING Verified 03/02/17 23:50 [From Vitamin D2] seafood Allergy Severe throat Uncoded 03/02/17 23:50 swelling Results - Vital Signs Recent Vital Signs: Last Vital Signs Temp 97.3 F L 03/10/17 15:39 Pulse 71 03/10/17 15:39 Resp 20 03/10/17 15:39 BP 182/75 H 03/10/17 15:39 Pulse Ox 95 03/10/17 15:39 - Labs Result Diagrams: 03/09/17 21:50 03/09/17 21:50
--- NOTE | 2017-03-13 01:01 | CP.PCM.DIS ---
Provider - Provider Date of Admission: 03/09/17 22:41 Attending physician: Sher Titus MD Time Spent in preparation of Discharge (in minutes): 45 Hospital Course - Lab Results Lab Results: Most Recent Lab Values WBC 8.6 K/uL (4.8-10.8) 03/09/17 21:50 RBC 3.07 Mil/uL (3.80-5.20) L 03/09/17 21:50 Hgb 8.6 g/dL (11.0-16.0) L 03/09/17 21:50 Hct 26.0 % (34.0-47.0) L 03/09/17 21:50 MCV 84.4 fL (81.0-99.0) 03/09/17 21:50 MCH 28.0 pg (27.0-31.0) 03/09/17 21:50 MCHC 33.1 g/dL (33.0-37.0) 03/09/17 21:50 RDW 18.6 % (11.5-14.5) H 03/09/17 21:50 Plt Count 334 K/uL (130-400) 03/09/17 21:50 MPV 7.9 fL (7.2-11.7) 03/09/17 21:50 Neut % (Auto) 68.0 % (50.0-75.0) 03/09/17 21:50 Lymph % (Auto) 19.0 % (20.0-40.0) L 03/09/17 21:50 Schuyler % (Auto) 7.0 % (0.0-10.0) 03/09/17 21:50 Eos % (Auto) 4.8 % (0.0-4.0) H 03/09/17 21:50 Baso % (Auto) 1.2 % (0.0-2.0) 03/09/17 21:50 Neut # 5.9 K/uL (1.8-7.0) 03/09/17 21:50 Lymph # 1.6 K/uL (1.0-4.3) 03/09/17 21:50 Schuyler # 0.6 K/uL (0.0-0.8) 03/09/17 21:50 Eos # 0.4 K/uL (0.0-0.7) 03/09/17 21:50 Baso # 0.1 K/uL (0.0-0.2) 03/09/17 21:50 pO2 20 mm/Hg (30-55) L 03/09/17 21:45 VBG pH 7.37 (7.32-7.43) 03/09/17 21:45 VBG pCO2 48 mmHg (40-60) 03/09/17 21:45 VBG HCO3 24.4 mmol/L 03/09/17 21:45 VBG Total CO2 29.2 mmol/L (22-28) H 03/09/17 21:45 VBG O2 Sat (Calc) 37.5 % (40-65) L 03/09/17 21:45 VBG Base Excess 1.7 mmol/L (0.0-2.0) 03/09/17 21:45 VBG Potassium 4.3 mmol/L (3.6-5.2) 03/09/17 21:45 Sodium 139.0 mmol/l (132-148) 03/09/17 21:45 Chloride 101.0 mmol/L (98-107) 03/09/17 21:45 Glucose 223 mg/dl (65-105) H 03/09/17 21:45 Lactate 1.5 mmol/L (0.7-2.1) 03/09/17 21:45 Sodium 138 mmol/L (132-148) 03/09/17 21:50 Potassium 4.5 mmol/L (3.6-5.2) 03/09/17 21:50 Chloride 90 mmol/L (98-107) L 03/09/17 21:50 Carbon Dioxide 24 mmol/L (22-30) 03/09/17 21:50 Anion Gap 29 (10-20) H 03/09/17 21:50 BUN 67 mg/dL (7-17) H 03/09/17 21:50 Creatinine 7.4 MG/DL (0.7-1.2) H* 03/09/17 21:50 Est GFR ( Amer) 7 03/09/17 21:50 Est GFR (Non-Af Amer) 5 03/09/17 21:50 POC Glucose (mg/dL) 154 mg/dL (65-110) H 03/10/17 11:10 Random Glucose 217 mg/dL (65-105) H 03/09/17 21:50 Calcium 7.9 mg/dl (8.6-10.4) L 03/09/17 21:50 Total Bilirubin 0.8 mg/dL (0.2-1.3) 03/09/17 21:50 AST 28 U/L (14-36) 03/09/17 21:50 ALT 35 U/L (9-52) 03/09/17 21:50 Alkaline Phosphatase 111 U/L (38-126) 03/09/17 21:50 Troponin I 0.0360 ng/mL (0.00-0.120) 03/09/17 21:50 NT-Pro-B Natriuret Pep 00737 pg/mL (0-900) H 03/09/17 21:50 Total Protein 7.4 g/dL (6.3-8.3) 03/09/17 21:50 Albumin 4.1 g/dL (3.5-5.0) 03/09/17 21:50 Globulin 3.4 gm/dL (2.2-3.9) 03/09/17 21:50 Albumin/Globulin Ratio 1.2 (1.0-2.1) 03/09/17 21:50 Venous Blood Potassium 4.3 mmol/L (3.6-5.2) 03/09/17 21:45 - Hospital Course Hospital Course: Chief complaint: Not feeling well shortness of breath History present illness: 67-year-old female with history of hypertension, end-stage renal disease on dialysis, admitted to the emergency room with the shortness of breath. Patient is concerned that she is not able to breathe, feeling not well. She's also complaining of some chest tightness. He received hemodialysis day before yesterday. But still continues to have symptoms of SOB. Past medical history hypertension and hypercholesteremia end-stage renal disease. Patient is having multiple allergic symptoms. She is always concerned about multiple medications causing allergic symptoms including bloated sensation of the abdomen, pain in the right upper quadrant, and also not feeling well. Patient is somewhat reluctant to take any prescription medication, and also further testing patient is trying to avoid Surgical history: AV fistula Allergies noted, patient has a multiple allergic including food, diet, and also medications. Family history noncontributory Review of system: Ongoing headache, body pain, feeling weak tired. Complaining of shortness of breath Vital signs reviewed No neck vein distention noted Bilateral wheezing noted CVS regular heart sound, no murmur noted Abdomen soft, nontender. Extremities no pedal edema HEEL SORTER alert awake oriented 3, no functional neurological deficit X-ray showing evidence of mild pulmonary edema Assessment and recommendation: 67-year-old female with history of hypertension and hypercholesteremia end- stage renal disease on dialysis admitted to the emergency room with the ongoing symptoms of shortness of breath. Possible fluid overload. I suggested the patient to have the emergency dialysis. And will follow theAsian immediately received hemodialysis. Post hemodialysis patient had a low blood pressure, but eventually got better. Patient is feeling better, and she wanted to leave. We'll discharge the patient. Follow-up as an outpatient.. Most likely patient has a fluid overload secondary to noncompliance with the liquid, diet. Hypertension. Patient is somewhat reluctant to have further testing. Will follow the patient patient after the dialysis. Patient most likely noncompliance with medication, and she is also noncompressive the dialysis. We'll follow the patient Discharge Exam - Head Exam Head Exam: ATRAUMATIC, NORMAL INSPECTION Discharge Plan - Discharge Medications Prescriptions: amLODIPine [Norvasc] 5 mg PO DAILY #30 tab Acetaminophen with Codeine [Tylenol with Codeine #3 Tablet] 1 each PO Q12 PRN # 5 tablet PRN Reason: Pain, Severe (8-10) - Follow Up Plan Condition: STABLE Disposition: HOME/ ROUTINE Instructions: Acetaminophen/Codeine (By mouth), Amlodipine (By mouth), Heart Failure (DC), Heart Healthy Diet (DC) Additional Instructions: FOLLOW UP WITH DR. TITUS IN THE OFFICE WITHIN 1 WEEK--CALL THE OFFICE FOR APPT TIME. FOLLOW UP WITH DR. GERMAN IN THE OFFICE WITHIN 1-2 WEEKS--CALL THE OFFICE FOR APPT TIME. CONTINUE YOUR DIALYSIS SCHEDULE USUAL. CONTINUE MEDICATIONS USUAL. CONTINUE NORVASC FOR YOUR BLOOD PRESSURE (PER DR. GERMAN'S RECOMMENDATIONS). Referrals: Tyrese German MD [Staff Provider] - Sher Titus MD [Staff Provider] -
== END 2017-03-10 17:50 | disposition home or self-care (01) ==
LOC: C.ER 20:13 → C.9E 22:41 → C.6T 23:40
PROVIDERS: ADMIT Internal Medicine; ATTEND Internal Medicine
DX: I13.2 Hypertensive heart and chronic kidney disease with heart failure and with stage 5 chronic kidney disease, or end stage renal disease (principal); N18.6 End stage renal disease; I50.9 Heart failure, unspecified; Z99.2 Dependence on renal dialysis; G89.29 Other chronic pain; G47.30 Sleep apnea, unspecified; E78.00 Pure hypercholesterolemia, unspecified; E11.22 Type 2 diabetes mellitus with diabetic chronic kidney disease
CPT/HCPCS: 36415; 71020; 80053; 82803; 82948; 83880; 84484; 85025; 93005; 99283; G0257; G0378; Q4081

== ENCOUNTER 2017-03-17 18:34 | Emergency (ER) | payer MEDICARE, OTHER ==
[2017-03-17 18:35] VITALS: BMI 30.9
[2017-03-17 19:23] LABS: BASO # 0.1 K/uL (0.0-0.2); BASO % 0.8 % (0.0-2.0); EOS # 0.4 K/uL (0.0-0.7); EOS % 5.4 % (0.0-4.0); HEMOGLOBIN 9.1 g/dL (11.0-16.0); LYMPH # 1.3 K/uL (1.0-4.3); LYMPH % 15.9 % (20.0-40.0); MEAN CELL VOLUME 85.4 fL (81.0-99.0); MEAN CORPUSCULAR HEMOGLOBIN 28.4 pg (27.0-31.0); MEAN CORPUSCULAR HGB CONC 33.2 g/dL (33.0-37.0); MEAN PLATELET VOLUME 7.6 fL (7.2-11.7); MONO # 0.5 K/uL (0.0-0.8); NEUT % 71.9 % (50.0-75.0); RBC 3.21 Mil/uL (3.80-5.20); RED CELL DISTRIBUTION WIDTH 19.3 % (11.5-14.5); WHITE BLOOD COUNT 8.3 K/uL (4.8-10.8)
[2017-03-17 19:31] LABS: ALBUMIN 3.9 g/dL (3.5-5.0)
[2017-03-17 19:34] LABS: ALB/GLOB RATIO 1.1 (1.0-2.1)
[2017-03-17 19:35] LABS: CALCIUM 7.9 mg/dl (8.6-10.4)
[2017-03-17 20:31] LABS: SQUAMOUS EPITHIAL 29 /hpf (0-5); URINE BACTERIA MANY (<OCC)
[2017-03-17 20:32] LABS: URINE CLARITY Hazy (Clear); URINE COLOR YELLOW (YELLOW); URINE GLUCOSE (UA) 250 mg/dL (Normal)
[2017-03-17 20:33] LABS: PH,URINE 8.5 (5.0-8.0); URINE BILIRUBIN NEGATIVE (NEGATIVE); URINE BLOOD SMALL (NEGATIVE); URINE LEUKOCYTE ESTERASE LARGE Leu/uL (Negative); URINE NITRATE NEGATIVE (NEGATIVE); URINE PROTEIN > 300 mg/dL (NEGATIVE)
--- NOTE | 2017-03-17 21:08 | C.PDOC ---
Time Seen by Provider: 03/17/17 19:26 Chief Complaint (Nursing): Abdominal Pain Past Medical History Vital Signs: Last Vital Signs Temp 97.9 F 03/17/17 18:39 Pulse 86 03/17/17 18:39 Resp 20 03/17/17 18:39 BP 187/79 H 03/17/17 18:39 Pulse Ox 99 03/17/17 18:39 - Medical History PMH: Anemia, Anxiety, Back Problems, CHF, Depression, Diabetes, Gall Bladder Disease, HTN, Hypercholesterolemia, Hypothyroidism, Peripheral Edema, Pneumonia , End Stage Renal Disease, Chronic Kidney Disease, Sleep Apnea, TIA (right sided weakness) Surgical History: Cholecystectomy, Endoscopy, Tonsillectomy - [facility] Procedures ASSISTANCE WITH RESPIRATORY VENTILATION, <24 HRS, CPAP (04/29/16) COLONOSCOPY (02/01/15) EXCISION OF LARGE INTESTINE, ENDO, DIAGN (04/29/16) FLUOROSCOPY OF SUPERIOR VENA CAVA, GUIDANCE (05/07/16) INSERTION OF ENDOTRACHEAL AIRWAY INTO TRACHEA, VIA OPENING (05/07/16) INSERTION OF INFUSION DEV INTO SUP VENA CAVA, PERC APPROACH (09/15/16) INTRAOPER CHOLANGIOGRAM (12/05/14) LAPAROSCOPIC CHOLECYSTECTOMY (12/05/14) LAPAROSCOPIC LIVER BIOPSY (12/05/14) PERFORMANCE OF URINARY FILTRATION, MULTIPLE (03/03/17) REMOVAL OF INFUSION DEVICE FROM UPPER VEIN, BLUEPRINT PROCESSOR APPROACH (08/14/16) RESPIRATORY VENTILATION, 24-96 CONSECUTIVE HOURS (05/07/16) TRANSFUSE NONAUT RED BLOOD CELLS IN PERIPH VEIN, PERC (04/29/16) Family History: States: Unknown Family Hx, Hypertension (mother and father) - Social History Hx Tobacco Use: No Hx Alcohol Use: No Hx Substance Use: No - Immunization History Hx Tetanus Toxoid Vaccination: No Hx Influenza Vaccination: No Hx Pneumococcal Vaccination: Yes ED Course And Treatment - Laboratory Results Result Diagrams: 03/17/17 19:17 03/17/17 19:17 O2 Sat by Pulse Oximetry: 99 Disposition - Disposition Forms: [employer] (Greek)
--- NOTE | 2017-03-17 21:11 | C.PDOC ---
History Of Present Illness Pt c/o right ear pain. Time Seen by Provider: 03/17/17 19:26 Chief Complaint (Nursing): ENT Problem History Per: Patient, Family Onset/Duration Of Symptoms: Days (months) Current Symptoms Are (Timing): Still Present Quality (Ear): Pain W/Touch, Discharge (?) Severity: Moderate Past Medical History Reviewed: Historical Data, Nursing Documentation, Vital Signs Vital Signs: Last Vital Signs Temp 97.9 F 03/17/17 18:39 Pulse 86 03/17/17 18:39 Resp 20 03/17/17 18:39 BP 187/79 H 03/17/17 18:39 Pulse Ox 99 03/17/17 18:39 - Medical History PMH: Anemia, Anxiety, Back Problems, CHF, Depression, Diabetes, Gall Bladder Disease, HTN, Hypercholesterolemia, Hypothyroidism, Peripheral Edema, Pneumonia , End Stage Renal Disease, Chronic Kidney Disease, Sleep Apnea, TIA (right sided weakness) Surgical History: Cholecystectomy, Endoscopy, Tonsillectomy - [facility] Procedures ASSISTANCE WITH RESPIRATORY VENTILATION, <24 HRS, CPAP (04/29/16) COLONOSCOPY (02/01/15) EXCISION OF LARGE INTESTINE, ENDO, DIAGN (04/29/16) FLUOROSCOPY OF SUPERIOR VENA CAVA, GUIDANCE (05/07/16) INSERTION OF ENDOTRACHEAL AIRWAY INTO TRACHEA, VIA OPENING (05/07/16) INSERTION OF INFUSION DEV INTO SUP VENA CAVA, PERC APPROACH (09/15/16) INTRAOPER CHOLANGIOGRAM (12/05/14) LAPAROSCOPIC CHOLECYSTECTOMY (12/05/14) LAPAROSCOPIC LIVER BIOPSY (12/05/14) PERFORMANCE OF URINARY FILTRATION, MULTIPLE (03/03/17) REMOVAL OF INFUSION DEVICE FROM UPPER VEIN, PATIENT CARE SECRETARY APPROACH (08/14/16) RESPIRATORY VENTILATION, 24-96 CONSECUTIVE HOURS (05/07/16) TRANSFUSE NONAUT RED BLOOD CELLS IN PERIPH VEIN, PERC (04/29/16) Family History: States: Unknown Family Hx, Hypertension (mother and father) - Social History Hx Tobacco Use: No Hx Alcohol Use: No Hx Substance Use: No - Immunization History Hx Tetanus Toxoid Vaccination: No Hx Influenza Vaccination: No Hx Pneumococcal Vaccination: Yes Review Of Systems Constitutional: Negative for: Fever Cardiovascular: Negative for: Chest Pain Respiratory: Negative for: Shortness of Breath Gastrointestinal: Positive for: Abdominal Pain (Chronic RUQ pain for years since cholecystectomy). Negative for: Vomiting, Diarrhea Genitourinary: Negative for: Dysuria Musculoskeletal: Negative for: Neck Pain Skin: Negative for: Rash Neurological: Negative for: Weakness, Numbness, Seizures, Altered Mental Status Physical Exam - Physical Exam Appears: Non-toxic, No Acute Distress, Chronically Ill Skin: Normal Color, Warm, Dry, No Rash Head: Atraumatic, Normacephalic Eye(s): bilateral: PERRL, EOMI Ear(s): Right: Other (TM obscured by wax/debris) Throat: Normal Neck: Normal ROM, Supple Cardiovascular: Rhythm Regular Respiratory: Normal Breath Sounds, No Accessory Muscle Use Gastrointestinal/Abdominal: Soft, No Tenderness Extremity: Normal ROM, Pedal Edema, No Calf Tenderness Neurological/Psych: Oriented x3, Normal Motor, Normal Sensation ED Course And Treatment - Laboratory Results Result Diagrams: 03/17/17 19:17 03/17/17 19:17 Lab Interpretation: No Changes Compared To Prior Results ECG: Interpreted By Me, Viewed By Me ECG Rhythm: Sinus Rhythm, L BBB, Nonspecific Changes ECG Interpretation: No Changes From Prior Rate From EC O2 Sat by Pulse Oximetry: 99 Pulse Ox Interpretation: Normal Reassessment Condition: Improved Disposition Counseled Patient/Family Regarding: Studies Performed, Diagnosis, Need For Followup, Rx Given - Disposition Referrals: Sher Titus MD [Staff Provider] - Gordon Brown MD [Staff Provider] - Disposition: HOME/ ROUTINE Disposition Time: 21:12 Condition: STABLE Additional Instructions: Follow up with your doctor this week. Follow up with an ENT specialist. Return to the ER if you develop fever, worsening of symptoms or if you have any other concerns. Prescriptions: Cephalexin [Keflex] 500 mg PO MWF #3 capsule Neomycin/Polymyxin/Hydrocortis [Cortisporin Otic Susp] 4 drop OT QID #1 bottle traMADol [Ultram] 50 mg PO Q12 PRN #10 tab PRN Reason: Pain, Moderate (4-7) Forms: [facility] (Z[place]an), General Discharge Instructions - Clinical Impression Clinical Impression: Ear discharge of right ear, Right ear pain, ESRD (end stage renal disease) on dialysis
[2017-03-17 21:32] VITALS: BP 174/77; PULSE 79; RESP 18; TEMP 98; O2SAT 94
--- NOTE | 2017-03-18 08:07 | CARD ---
APPROVED REPORT EKG Measurement Heart [id number] HI [id number] <Conclusion> Normal sinus rhythm Left axis deviation Left bundle branch block Abnormal ECG
== END 2017-03-17 21:32 | disposition home or self-care (01) ==
LOC: C.ER 18:34
DX: H92.11 Otorrhea, right ear (principal); H92.01 Otalgia, right ear; I12.0 Hypertensive chronic kidney disease with stage 5 chronic kidney disease or end stage renal disease; E11.22 Type 2 diabetes mellitus with diabetic chronic kidney disease; N18.6 End stage renal disease; Z99.2 Dependence on renal dialysis

== ENCOUNTER 2017-03-19 04:03 | Emergency (ER) | payer MEDICARE, OTHER ==
[2017-03-19 04:03] VITALS: BMI 30.9
--- NOTE | 2017-03-19 05:09 | C.PDOC ---
History Of Present Illness <Petra Smiley PA-C - Last Filed: 03/19/17 06:03> <Estrada Hill - Last Filed: 03/19/17 06:53> 67 year old female who was seen in the ER on 03/17/2017 for ear pain presents to the ER because she does not like the side effect of the tramadol she was prescribed. Patient states it makes her feel drowsy; she is also complaining of bilateral leg swelling and cramping. Patient is on hemodialysis and is scheduled for dialysis later today; denies fever, chills, headache, dizziness, chest pain, vomiting, abdominal pain, or urinary symptoms. (Petra Smiley PA-C) History Per: Patient History/Exam Limitations: no limitations Onset/Duration Of Symptoms: Days Current Symptoms Are (Timing): Still Present Recent travel outside of the [place]: No <Petra Smiley PA-C - Last Filed: 03/19/17 06:03> <Estrada Hill - Last Filed: 03/19/17 06:53> Time Seen by Provider: 03/19/17 04:11 Chief Complaint (Nursing): Medical Clearance Past Medical History Reviewed: Historical Data, Nursing Documentation, Vital Signs - Medical History PMH: Anemia, Anxiety, Back Problems, CHF, Depression, Diabetes, Gall Bladder Disease, HTN, Hypercholesterolemia, Hypothyroidism, Peripheral Edema, Pneumonia , End Stage Renal Disease, Chronic Kidney Disease, Sleep Apnea, TIA (right sided weakness) Surgical History: Cholecystectomy, Endoscopy, Tonsillectomy Family History: States: Unknown Family Hx, Hypertension (mother and father) - Social History Hx Tobacco Use: No Hx Alcohol Use: No Hx Substance Use: No - Immunization History Hx Tetanus Toxoid Vaccination: No Hx Influenza Vaccination: No Hx Pneumococcal Vaccination: Yes <Petra Smiley PA-C - Last Filed: 03/19/17 06:03> Review Of Systems Except As Marked, All Systems Reviewed And Found Negative. Constitutional: Negative for: Fever, Chills Cardiovascular: Negative for: Chest Pain Gastrointestinal: Negative for: Vomiting, Abdominal Pain Genitourinary: Negative for: Dysuria, Incontinence, Hematuria Skin: Positive for: Other (Swelling) Neurological: Negative for: Headache, Dizziness <Petra Smiley PA-C - Last Filed: 03/19/17 06:03> Physical Exam - Physical Exam Appears: Non-toxic, No Acute Distress Skin: Normal Color, Warm, Dry Head: Atraumatic, Normacephalic Oral Mucosa: Moist Chest: Symmetrical, No Tenderness Cardiovascular: Rhythm Regular, No Murmur Respiratory: Normal Breath Sounds, No Rales, No Rhonchi, No Wheezing Gastrointestinal/Abdominal: Soft, No Tenderness Extremity: Normal ROM (x4), Pedal Edema (+2 pitting), No Deformity Pulses: Left Dorsalis Pedis: Normal, Right Dorsalis Pedis: Normal Neurological/Psych: Oriented x3, Normal Speech, Normal Cognition <Petra Smiley PA-C - Last Filed: 03/19/17 06:03> ED Course And Treatment - Laboratory Results Result Diagrams: 03/19/17 05:13 03/19/17 05:13 O2 Sat by Pulse Oximetry: 98 (Room air) Pulse Ox Interpretation: Normal <Petra Smiley PA-C - Last Filed: 03/19/17 06:03> - Laboratory Results Result Diagrams: 03/19/17 05:13 03/19/17 05:13 Pulse Ox Interpretation: Normal <Estrada Hill - Last Filed: 03/19/17 06:53> Medical Decision Making <Petra Smiley PA-C - Last Filed: 03/19/17 06:03> <Estrada Hill - Last Filed: 03/19/17 06:53> Medical Decision Makin67 year old female is c/o side effect from taking tramadol, she is also complaining of bilateral leg swelling and cramping and is due for hemodialysis today. Plan: * EKG * Blood work * CXR CXR: CM, mild venous congestion, as read by PA. EKG : SB at 58 bpm, LAD, LBBB, as read by PA. Labs reviewed. On re-evaluation, pt is resting in bed in no acute distress, speaking in full sentences, breathing is easy and unlabored. Pt is requesting to have her HD done here at [facility] as she is here already. Call placed to Dr. German, case d/w Dr. Nair, arrangements made for admission for HD today. Pt's pmd called, notified of plan to admit the pt for HD today. Arrangements made for admission for HD. (Petra Smiley PA-C) Disposition - Disposition Disposition Time: 06:30 <Petra Smiley PA-C - Last Filed: 03/19/17 06:03> <Estrada Hill - Last Filed: 03/19/17 06:53> - Disposition Condition: STABLE Forms: [employer] (Cay[place] Islander) - Clinical Impression Clinical Impression: ESRD needing dialysis, Medication side effect, Leg edema - PA / TRAILER MECHANIC / Resident Statement MD/DO has reviewed & agrees with the documentation as recorded. - Scribe Statement The provider has reviewed the documentation as recorded by the Scribe <Petra Smiley PA-C - Last Filed: 03/19/17 06:03> <Estrada Hill - Last Filed: 03/19/17 06:53> - Scribe Statement Escobar Dubon All medical record entries made by the Scribe were at my direction and personally dictated by me. I have reviewed the chart and agree that the record accurately reflects my personal performance of the history, physical exam, medical decision making, and the department course for this patient. I have also personally directed, reviewed, and agree with the discharge instructions and disposition. (Petra Smiley PA-C) Physician Patient Turnover Patient Signed Over To: Carina Hernandez Handoff Comments: pending admission <Estrada Hill - Last Filed: 03/19/17 06:53>
[2017-03-19 05:22] LABS: POTASSIUM 4.6 mmol/L (3.6-5.2)
[2017-03-19 05:23] LABS: BASO # 0.1 K/uL (0.0-0.2); BASO % 1.2 % (0.0-2.0); EOS # 0.4 K/uL (0.0-0.7); EOS % 5.4 % (0.0-4.0); HEMATOCRIT 26.6 % (34.0-47.0); LYMPH # 1.6 K/uL (1.0-4.3); LYMPH % 20.6 % (20.0-40.0); MEAN CELL VOLUME 85.5 fL (81.0-99.0); MEAN PLATELET VOLUME 7.7 fL (7.2-11.7); MONO # 0.6 K/uL (0.0-0.8); MONO % 7.2 % (0.0-10.0); RED CELL DISTRIBUTION WIDTH 18.2 % (11.5-14.5)
[2017-03-19 05:24] LABS: ALB/GLOB RATIO 1.1 (1.0-2.1); BILIRUBIN,TOTAL 1.4 mg/dL (0.2-1.3); TOTAL PROTEIN 7.6 g/dL (6.3-8.3)
[2017-03-19 05:25] LABS: CALCIUM 7.9 mg/dl (8.6-10.4)
[2017-03-19 07:06] VITALS: RESP 18
[2017-03-19 10:00] VITALS: BP 154/64; PULSE 66; TEMP 98.1; O2SAT 97
--- NOTE | 2017-03-19 10:35 | CP.PCM.PN ---
<Arnav Vazquez - Last Filed: 03/19/17 10:33> Subjective - Date & Time of Evaluation Date of Evaluation: 03/19/17 Time of Evaluation: 10:25 - Subjective Subjective: The patient declines admission to the hospital and wishes to leave the Emergency Department. This action is against my medical advice. This decision was made with informed refusal. The patient was told that admission to the hospital is necessary. Explanation of the reasons why were discussed. The risks of leaving were explained to the patient and include, but are not limited to, worsening of known or currently unknown conditions, permanent disability and from undiagnosed or untreated conditions. The patient has the capacity to make this informed decision and understands my explanation of the current medical problem and risks of leaving. The patient voluntarily accepts these risks but has refused to sign an AMA form documenting our conversation. The patient was given the opportunity to ask questions and reconsider. The patient was encouraged to return to the Emergency Department at any time for further care. This was also witnessed by the nurse and Dr. Titus was made aware. Objective - Vital Signs/Intake and Output Vital Signs (last 24 hours): Temp Pulse Resp BP Pulse Ox 98.1 F 66 18 154/64 H 97 03/19/17 10:03/19/17 10:03/19/17 10:03/19/17 10:03/19/17 10:00 <Sher Titus - Last Filed: 04/28/17 08:54> Subjective - Subjective Subjective: Patient has a history of frequent denying that treatment, and frequent AGAINST MEDICAL ADVICE in the past. I agree with the resident. Information was given to the patient. I attest this resident note Objective - Vital Signs/Intake and Output Vital Signs (last 24 hours): Temp Pulse Resp BP Pulse Ox 98.1 F 66 18 154/64 H 97 03/19/17 10:00 03/19/17 10:00 03/19/17 10:03/19/17 10:03/19/17 10:00 - Labs Labs: 03/19/17 05:13 03/19/17 05:13
--- NOTE | 2017-03-19 11:49 | RAD ---
HISTORY: leg swelling COMPARISON: Chest x-ray performed 03/09/17 TECHNIQUE: Chest, one view. FINDINGS: Examination limited by habitus. LUNGS: Mild bibasilar atelectasis. Please note that chest x-ray has limited sensitivity for the detection of pulmonary masses. PLEURA: No significant pleural effusion identified. No definite pneumothorax . CARDIOVASCULAR: Cardiomegaly. OSSEOUS STRUCTURES: Degenerative changes. VISUALIZED UPPER ABDOMEN: Unremarkable. OTHER FINDINGS: None. IMPRESSION: Cardiomegaly. Mild bibasilar atelectasis.
--- NOTE | 2017-04-01 20:31 | CARD ---
APPROVED REPORT EKG Measurement Heart [id number] MI 188P8 [id number] <Conclusion> Sinus bradycardia Left axis deviation Left bundle branch block Abnormal ECG
== END 2017-03-19 10:40 | disposition short-term general hospital (02) ==
LOC: C.ER 04:03 → C.9E 07:52 → UNDOADMOB 07:52
DX: R60.0 Localized edema (principal); T40.4X5A Adverse effect of other synthetic narcotics, initial encounter; I12.0 Hypertensive chronic kidney disease with stage 5 chronic kidney disease or end stage renal disease; E11.22 Type 2 diabetes mellitus with diabetic chronic kidney disease; N18.6 End stage renal disease; Z99.2 Dependence on renal dialysis